=== PATIENT | female | born 1945 | race Caucasian/White ===

== ENCOUNTER 2017-01-02 13:46 | Emergency (ER) | payer MEDICARE, OTHER ==
[~2017-01-02] VITALS: Ht 162.6 cm; Wt 55.3 kg
[~2017-01-02 13:46] MED LIST: ACET1TAB45 PO; CEPH-507 PO; CODE-54 PO; CPR500T PO; DIPH1TAB25 PO; FLC100T1 PO; FRNCD3C PO; FURO-124 PO; GABA-488 PO; GBPN300C PO; LOVA40TA2 PO; NITR100C3 PO; ONDN4T PO; PANT40TA PO; PNT40TEC PO; SCR1T PO; TEMA30CA PO; TMZP15C PO
[2017-01-02] MEDS ORDERED: RX-MUPIROCIN (BACTROBAN) 2% OINT 22 GM TUBE TOP STA (14:59)
[2017-01-02] MEDS ORDERED: cefTRIAXone 1 GM (ROCEPHIN) VIAL IM ONE (15:00)
[2017-01-02] MEDS ORDERED: TETANUS,DIPTH,PERTUSS P/F (BOOSTRIX) 0.5 ML VIAL IM STA (15:00)
[2017-01-02] MEDS ORDERED: LIDOCAINE 1% INJ 20 ML (XYLOCAINE) VIAL INJ ONE (15:00)
[2017-01-02] MEDS ORDERED: CEPH-507 PO (15:04)
--- NOTE | 2017-01-02 15:04 | ED Integumentary General ---
General Chief Complaint: Bite-Animal/Human/Insect Stated Complaint: L LEG DOG BITE Nursing Triage Note: PT HERE WITH C/O DOG SCRATCH TO THE LEFT LEG 4 DAYS AGO. History of Present Illness Time seen by provider: 14:50 Initial Comments Patient reports that 4 days ago her dog jumped on her left leg causing a scratch to the lower anterior portion. She has been using a veterinary salve and putting it on the wound. Her son reports that initially was a large flap of skin, initially they were trying to keep the flap intact however it has been removed by them. Timing/Duration: getting worse Severity: mild Location: extremities (left lower extremity) Possible Cause: other (dog scratch) Associated Symptoms: denies symptoms Allergies and Home Medications Allergies Uncoded Allergies: PCN (Allergy, Unknown, 07/20/15) Home Medications Acetaminophen with Codeine 1 Each Tablet, 1-2 TAB PO Q6H PRN for PAIN, (Reported ) Clindamycin HCl 150 Mg Capsule, 150 MG PO Q6H, #20 Ref 0 Prescribed by: LORNE HODGES on 01/02/17 1519 Furosemide 40 Mg Tablet, 40 MG PO DAILY PRN for SWELLING, (Reported) Gabapentin 300 Mg Capsule, 600 MG PO 0700, 1200, 1800, (Reported) TAKES 2 (300MG) CAPSULES Gabapentin 300 Mg Capsule, 900 MG PO HS, (Reported) TAKES 3 (300MG) CAPSULES Lovastatin 40 Mg Tablet, 40 MG PO HS, (Reported) Pantoprazole Sod 40 Mg Tab, 40 MG PO DAILY, (Reported) Sulfamethoxazole/Trimethoprim 1 Each Tablet, 1 EACH PO BID, #20 Ref 0 Prescribed by: LORNE HODGES on 01/02/17 1519 Temazepam 30 Mg Capsule, 30 MG PO HS, (Reported) Constitutional: no symptoms reported, see HPI Skin: see HPI, lesions (left lower extremity) All Other Systems Reviewed Negative Unless Noted: Yes Past Efnzmeo-Gaokow-Fxgjqg Hx Patient Social History Former Smoker/When Quit: Jul 20, 2011 Recent Foreign Travel: No Contact w/Someone Who Travel: No Recent Infectious Disease Expo: No Immunizations Up To Date Tetanus Booster (TDap): Unknown PED Vaccines UTD: Yes Surgeries HX Surgeries: Yes (EGD/COLONOSCOPY, back surgery) Surgeries: Eye Surgery Cardiovascular Hx Cardiac Disorders: Yes Cardiac Disorders: High Cholesterol Neurological Hx Neurological Disorders: Yes Neurological Disorders: TIA Reproductive System Hx Reproductive Disorders: No Genitourinary Hx Genitourinary Disorders: No Gastrointestinal Hx Gastrointestinal Disorders: Yes (H. PYLORI) Gastrointestinal Disorders: Gastroesophageal Reflux, House's Esophagus, Hemorrhoids, Ulcer Musculoskeletal Hx Musculoskeletal Disorders: Yes Musculoskeletal Disorders: Degenerate Disk Disease, Fibromyalgia, Chronic Back Pain Endocrine Hx Endocrine Disorders: No HEENT HX ENT Disorders: No (RECENT EYE SURGERY. ) HEENT Disorders: Cataract Cancer Hx Cancer: No Psychosocial Hx Psychiatric Problems: Yes Behavioral Health Disorders: Anxiety, Depression Integumentary HX Skin/Integumentary Disorder: No Blood Transfusions Hx Blood Disorders: No Reviewed Nursing Assessment Reviewed/Agree w Nursing PMH: Yes Family Medical History Family Medial History: Abdominal aortic aneurysm 19 MOTHER Sabine's disease Arthritis 19 MOTHER Asthma 19 FATHER (GRANDFATHER) Cataracts 19 MOTHER Deafness or hearing loss 19 FATHER Glaucoma 19 MOTHER Headache disorder 19 MOTHER Physical Exam Vital Signs Vital Sign - Last 12Hours 01/02/17 14:26 Temp 97.3 Pulse 94 Resp 18 B/P (MAP) 122/73 Pulse Ox 99 O2 Delivery Room Air Capillary Refill : Less Than 3 Seconds General Appearance: WD/WN, no apparent distress HEENT: normal ENT inspection, TMs normal, pharynx normal Neck: non-tender, full range of motion, supple, normal inspection Cardiovascular: normal peripheral pulses, regular rate, rhythm Respiratory: chest non-tender, lungs clear, normal breath sounds Skin: normal color Skin Problem Location: lower extremities (left) Skin Problem Character: erythema, lesion, other (4X6 cm abrasion to left lower leg, anterior lateral. Marked erythema surrounding the abrasion, no warmth. Pedal pulses 2+ and symmetric. No active drainage from the wound site. No induration or fluctuance noted.) Lymphatic: No inguinal node tender (R), No inguinal node tender (L) Progress/Results/Core Measures Results/Orders My Orders Orders - LORNE HODGES Rx-Mupirocin 2% Oint (Rx-Bactroban) (01/02/17 14:59) Ceftriaxone Injection (Rocephin Injectio (01/02/17 15:00) Lidocaine 1% Injection (Xylocaine 1% Inj (01/02/17 15:00) Dipht,Pertuss(Acell),Tet Adult (Boostrix (01/02/17 15:00) Medications Given in ED Current Medications Medications Dose Ordered Sig/Cesilia Route Start Time Stop Time Status Last Admin Dose Admin Ceftriaxone Sodium 1,000 mg ONCE ONCE IM 01/02/17 15:00 01/02/17 15:01 DC 01/02/17 15:18 1,000 MG Lidocaine HCl 2.1 ml ONCE ONCE INJ 01/02/17 15:00 01/02/17 15:01 DC 01/02/17 15:18 2.1 ML Vital Signs/I&O Vital Sign - Last 12Hours 01/02/17 01/02/17 14:26 15:34 Temp 97.3 97.3 Pulse 94 94 Resp 18 18 B/P (MAP) 122/73 Pulse Ox 99 99 O2 Delivery Room Air Blood Pressure Mean: 89 Progress Note : Time: 14:50 Progress Note Wound irrigated thoroughly with peroxide, Bactroban ointment and sterile dressing applied. Wound care instructions reviewed with the patient and her son they agreed with this treatment plan, she will follow-up with her primary care provider in a few days. Verbalized understanding return to emergency department if wound worsens or she becomes febrile. Departure Impression Impression: Primary Impression: Cellulitis of left lower leg Additional Impression: Dog scratch Disposition: HOME, SELF-CARE Condition: Improved Departure-Patient Inst. Decision time for Depature: 15:10 Referrals: CHRIS GERARD MD (PCP/Family) Primary Care Physician Patient Instructions: Cellulitis (Skin Infection), Adult (DC) Add. Discharge Instructions: Clean wound with peroxide 3 times a day and apply antibiotic ointment. Follow-up with Dr. Gerard in 2 days. Take antibiotic as prescribed. Return to emergency department if fever greater than 101, increased redness or swelling at the wound site, difficulty breathing, or new problems. All discharge instructions reviewed with patient and/or family. Voiced understanding. Scripts Clindamycin HCl (Clindamycin HCl) 150 Mg Capsule 150 MG PO Q6H, #20 CAP 0 Refills Prov: LORNE HODGES 01/02/17 Sulfamethoxazole/Trimethoprim (Bactrim Ds Tablet) 1 Each Tablet 1 EACH PO BID, #20 TAB 0 Refills Prov: LORNE HODGES 01/02/17 Copy Copies To 1: CHRIS GERARD MD, AMY ARNP Jan 02, 2017 15:04
[2017-01-02] MEDS ORDERED: CLIN150C17 PO (15:19)
[2017-01-02] MEDS ORDERED: SULF1TAB35 PO (15:19)
[2017-01-02 15:34] VITALS: BP 122/73
== END 2017-01-02 15:33 | disposition home or self-care (01) ==
LOC: EDUNIT# 13:46 → ER 13:47
DX: S80.812A Abrasion, left lower leg, initial encounter (principal); L03.116 Cellulitis of left lower limb; E78.00 Pure hypercholesterolemia, unspecified; K21.9 Gastro-esophageal reflux disease without esophagitis; M47.9 Spondylosis, unspecified; F41.9 Anxiety disorder, unspecified; F32.9 Major depressive disorder, single episode, unspecified; Z86.73 Personal history of transient ischemic attack (TIA), and cerebral infarction without residual deficits; W54.0XXA Bitten by dog, initial encounter
CPT/HCPCS: 90715; 99284

== ENCOUNTER 2017-09-29 12:49 | Inpatient (IN) | payer MEDICARE, OTHER ==
[~2017-09-29] VITALS: Ht 162.6 cm; Wt 59.2 kg
[2017-09-29] VITALS (9 sets, daily range): BP systolic 80–142; BP diastolic 45–81
[~2017-09-29 12:49] MED LIST changes: +CLIN150C17 PO; +SULF1TAB35 PO
[2017-09-29] MEDS ORDERED: NS IV 1000 ML 1,000 ML IV ONE ×2 (13:05→13:07)
[2017-09-29] MEDS ORDERED: RT-ALBUTEROL/IPRATROPIUM 3 ML (DUONEB) VIAL ONE (13:06)
[2017-09-29] MEDS ORDERED: RT-ALBUTEROL/IPRATROPIUM 3 ML (DUONEB) VIAL INH ONE (13:15)
--- NOTE | 2017-09-29 13:20 | ED General ---
General Chief Complaint: Respiratory Problems Stated Complaint: FEVER,AMS Nursing Triage Note: c/o fever/confusion/soa/cough. Reports feeling ill x 3 days. Nursing Sepsis Screen: Possible Severe Sepsis Risk Source of Information: Patient, Family Exam Limitations: No Limitations History of Present Illness Date Seen by Provider: September 29, 2017 Time Seen by Provider: 12:52 Initial Comments This 72-year-old woman presents to the emergency room accompanied by her son and with acute illness for 3 days including fever, cough, weakness, dyspnea with wheezing, and diarrhea. She was confused last night and again this morning. 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 Last night she fell and struck her head against a closet door. There is no apparent injury at the time. She has headache but denies any neck pain or injury. She has diffuse myalgias. Patient was noted to be hypoxic with oxygen saturations in the low 80s upon presentation. Patient has a headache and reports history of migraines. Allergies and Home Medications Allergies Uncoded Allergies: PCN (Allergy, Unknown, 07/20/15) Home Medications Acetaminophen with Codeine 1 Each Tablet, 1-2 TAB PO Q6H PRN for PAIN, (Reported ) Clindamycin HCl 150 Mg Capsule, 150 MG PO Q6H Prescribed by: LORNE HODGES on 01/02/171518 Furosemide 40 Mg Tablet, 40 MG PO DAILY PRN for SWELLING, (Reported) Gabapentin 300 Mg Capsule, 600 MG PO 0700, 1200, 1800, (Reported) TAKES 2 (300MG) CAPSULES Gabapentin 300 Mg Capsule, 900 MG PO HS, (Reported) TAKES 3 (300MG) CAPSULES Lovastatin 40 Mg Tablet, 40 MG PO HS, (Reported) Pantoprazole Sod 40 Mg Tab, 40 MG PO DAILY, (Reported) Sulfamethoxazole/Trimethoprim 1 Each Tablet, 1 EACH PO BID Prescribed by: LORNE HODGES on 01/02/171518 Temazepam 30 Mg Capsule, 30 MG PO HS, (Reported) Patient Home Medication List Home Medication List Reviewed: Yes Review of Systems Constitutional: no symptoms reported EENTM: see HPI, other (oropharynx very dry) Respiratory: see HPI Cardiovascular: no symptoms reported Gastrointestinal: no symptoms reported Genitourinary: no symptoms reported : No Musculoskeletal: see HPI Skin: no symptoms reported Psychiatric/Neurological: See HPI Hematologic/Lymphatic: No Symptoms Reported Past Mzbgegw-Mzdbbb-Qthcbb Hx Patient Social History Recent Foreign Travel: No Contact w/Someone Who Travel: No Recent Infectious Disease Expo: No Immunizations Up To Date Tetanus Booster (TDap): Unknown PED Vaccines UTD: Yes Past Medical History Surgeries: Yes (EGD/COLONOSCOPY, back surgery) Eye Surgery Respiratory: Yes COPD Cardiac: Yes High Cholesterol Neurological: Yes (spinal stenosis) TIA : No Reproductive Disorders: No Gastrointestinal: Yes (H. PYLORI) Gastroesophageal Reflux, House's Esophagus, Hemorrhoids, Ulcer Musculoskeletal: Yes (spinal stenosis) Degenerate Disk Disease, Fibromyalgia, Chronic Back Pain Endocrine: No Cataract Cancer: No Psychosocial: Yes Anxiety, Depression Integumentary: No Blood Disorders: No Family Medical History Abdominal aortic aneurysm 19 MOTHER Alonso's disease Arthritis 19 MOTHER Asthma 19 FATHER (GRANDFATHER) Cataracts 19 MOTHER Deafness or hearing loss 19 FATHER Glaucoma 19 MOTHER Headache disorder 19 MOTHER Physical Exam-Suspected Sepsis Physical Exam Vital Signs Vital Signs - First Documented 09/29/17 09/29/17 13:08 13:11 Temp 98.3 Pulse 120 Resp 24 B/P (MAP) 113/72 (86) Pulse Ox 82 O2 Delivery Room Air O2 Flow Rate 4.00 Capillary Refill : Less Than 3 Seconds Blood Pressure Mean: 86 General Appearance: WD/WN, Moderate Distress HEENT: PERRL/EOMI, Normal ENT Inspection, Other (oropharynx extremely dry) Neck: Normal Inspection, Supple, Other (no nuchal rigidity) Respiratory: Accessory Muscle Use, Decreased Breath Sounds, Respiratory Distress, Wheezing Cardiovascular: No Edema, No Murmur, Tachycardia Gastrointestinal: Non Tender, Soft Extremity: Normal Capillary Refill, Normal Inspection, Non Tender, No Pedal Edema Neurologic/Psychiatric: Alert, Oriented x3, No Motor/Sensory Deficits, Normal Mood/Affect, shingle carrier II-XII Norm as Tested Skin: normal color, warm/dry Focused Exam Lactate Level 09/29/17 13:30: Lactic Acid Level 0.94 Lactic Acid Level Laboratory Tests Test 09/29/17 13:30 Lactic Acid Level 0.94 MMOL/L (0.50-2.00) Progress/Results/Core Measures Suspected Sepsis Recent Fever Within 48 Hours: No Infection Criteria Present: Suspected New Infection New/Unexplained Altered Menta: Yes Sepsis Screen: Possible Severe Sepsis Risk SIRS Temperature:98.3 Pulse: 120 Respiratory Rate: 24 Laboratory Tests 09/29/17 13:30: White Blood Count 16.9H Blood Pressure 113 /72 Mean: 86 09/29/17 13:30: Lactic Acid Level 0.94 Laboratory Tests 09/29/17 13:30: Creatinine 0.89, INR Comment 1.1, Platelet Count 237, Total Bilirubin 1.4H Results/Orders Lab Results Laboratory Tests Test 09/29/17 13:30 Range/Units White Blood Count 16.9 H 4.3-11.0 10^3/uL Red Blood Count 4.28 L 4.35-5.85 10^6/uL Hemoglobin 14.0 11.5-16.0 G/DL Hematocrit 43 35-52 % Mean Corpuscular Volume 100 H 80-99 FL Mean Corpuscular Hemoglobin 33 25-34 PG Mean Corpuscular Hemoglobin Concent 33 32-36 G/DL Red Cell Distribution Width 13.3 10.0-14.5 % Platelet Count 237 130-400 10^3/uL Mean Platelet Volume 10.0 7.4-10.4 FL Neutrophils (%) (Auto) 87 H 42-75 % Lymphocytes (%) (Auto) 9 L 12-44 % Monocytes (%) (Auto) 4 0-12 % Eosinophils (%) (Auto) 0 0-10 % Basophils (%) (Auto) 0 0-10 % Neutrophils # (Auto) 14.7 H 1.8-7.8 X 10^3 Lymphocytes # (Auto) 1.5 1.0-4.0 X 10^3 Monocytes # (Auto) 0.7 0.0-1.0 X 10^3 Eosinophils # (Auto) 0.0 0.0-0.3 10^3/uL Basophils # (Auto) 0.0 0.0-0.1 10^3/uL Neutrophils % (Manual) 83 % Lymphocytes % (Manual) 13 % Monocytes % (Manual) 1 % Eosinophils % (Manual) 0 % Basophils % (Manual) 0 % Band Neutrophils 3 % Blood Morphology Comment NORMAL Prothrombin Time 13.8 12.2-14.7 SEC INR Comment 1.1 0.8-1.4 Activated Partial Thromboplast Time 29 24-35 SEC Sodium Level 133 L 135-145 MMOL/L Potassium Level 4.5 3.6-5.0 MMOL/L Chloride Level 98 98-107 MMOL/L Carbon Dioxide Level 24 21-32 MMOL/L Anion Gap 11 5-14 MMOL/L Blood Urea Nitrogen 14 7-18 MG/DL Creatinine 0.89 0.60-1.30 MG/DL Estimat Glomerular Filtration Rate > 60 BUN/Creatinine Ratio 16 Glucose Level 126 H 70-105 MG/DL Lactic Acid Level 0.94 0.50-2.00 MMOL/L Calcium Level 9.9 8.5-10.1 MG/DL Total Bilirubin 1.4 H 0.1-1.0 MG/DL Aspartate Amino Transf (AST/SGOT) 24 5-34 U/L Alanine Aminotransferase (ALT/SGPT) 15 0-55 U/L Alkaline Phosphatase 76 40-136 U/L Total Creatine Kinase 134 29-168 U/L Total Protein 8.0 6.4-8.2 GM/DL Albumin 3.7 3.2-4.5 GM/DL Serum Alcohol < 10 <10 MG/DL Micro Results Microbiology 09/29/17 Influenza Types A,B Antigen (BETH) - Final, Complete My Orders Orders - ANGELES HOOD MD Cbc With Automated Diff (09/29/17 12:53) Comprehensive Metabolic Panel (09/29/17 12:53) Ua Culture If Indicated (09/29/17 12:53) Influenza A And B Antigens (09/29/17 12:53) Saline Lock/Iv-Start (09/29/17 12:53) Lactic Acid Analyzer (09/29/17 13:05) Blood Culture (09/29/17 13:05) Sputum Culture (09/29/17 13:05) Protime With Inr (09/29/17 13:05) Partial Thromboplastin Time (09/29/17 13:05) Chest 1 View, Ap/Pa Only (09/29/17 13:05) O2 (09/29/17 13:05) Saline Lock/Iv-Start (09/29/17 13:05) Vital Signs Adult Sepsis Patie Q1H (09/29/17 13:05) Remove Rings In Anticipation O (09/29/17 13:05) Saline Lock/Iv-Start (09/29/17 13:05) Ns Iv 1000 Ml (Sodium Chloride 0.9%) (09/29/17 13:05) Saline Lock/Iv-Start (09/29/17 13:07) Ns Iv 1000 Ml (Sodium Chloride 0.9%) (09/29/17 13:07) Albuterol/Ipra Inhalation Soln (Duoneb I (09/29/17 13:15) Svn Small Volume Nebulizer (09/29/17 13:07) Albuterol/Ipra Inhalation Soln (Duoneb I (09/29/17 13:06) Ct Head/Cervical Spine Wo (09/29/17 13:20) Creatine Kinase (09/29/17 13:20) Albuterol Pre-Mix Nebs (Rt) (Proventil (09/29/17 13:26) Ipratropium 0.02% Neb Solution (Atrovent (09/29/17 13:30) Svn Small Volume Nebulizer (09/29/17 13:26) Svn Small Volume Nebulizer (09/29/17 13:26) Methylprednisolone Sod Succ (Solu-Medrol (09/29/17 13:30) Manual Differential (09/29/17 13:30) Alcohol (09/29/17 14:38) Levofloxacin 750 Mg/150 Ml Iv (Levaquin (09/29/17 16:00) Ketorolac Injection (Toradol Injection) (09/29/17 16:15) General/Regular (09/30/17 Breakfast) Medications Given in ED Current Medications Medications Dose Ordered Sig/Cesilia Route Start Time Stop Time Status Last Admin Dose Admin Albuterol/ Ipratropium 3 ml ONCE ONCE INH 09/29/17 13:15 09/29/17 13:16 DC 09/29/17 13:11 3 ML Ipratropium Vanzant 0.5 mg ONCE ONCE IH 09/29/17 13:30 09/29/17 13:31 DC 09/29/17 15:11 0.5 MG Ketorolac Tromethamine 15 mg ONCE ONCE IVP 09/29/17 16:15 09/29/17 16:16 DC 09/29/17 16:16 15 MG Levofloxacin/ Dextrose 150 ml @ 100 mls/hr ONCE ONCE IV 09/29/17 16:00 09/29/17 17:29 09/29/17 16:16 100 MLS/HR Methylprednisolone Sodium Succinate 62.5 mg ONCE ONCE IVP 09/29/17 13:30 09/29/17 13:31 DC 09/29/17 14:55 62.5 MG Sodium Chloride 1,000 ml @ 0 mls/hr Q0M ONCE IV 09/29/17 13:05 09/29/17 13:07 DC 09/29/17 13:23 1,000 MLS/HR Sodium Chloride 1,000 ml @ 0 mls/hr Q0M ONCE IV 09/29/17 13:07 09/29/17 13:09 DC 09/29/17 14:54 1,000 MLS/HR Vital Signs/I&O 09/29/17 09/29/17 09/29/17 09/29/17 13:08 13:11 15:11 16:16 Temp 98.3 98.3 Pulse 120 Resp 24 B/P (MAP) 113/72 (86) Pulse Ox 82 94 95 O2 Delivery Room Air Nasal Cannula Nasal Cannula O2 Flow Rate 4.00 4.00 Capillary Refill : Less Than 3 Seconds Blood Pressure Mean: 86 Progress Note : Progress Note Patient was promptly seen and assessed. She was suspected of having sepsis and septic protocol workup was pursued. Patient received a DuoNeb treatment but was still wheezy and hypoxic. An hour-long nebulizer treatment was administered along with Solu-Medrol 62.5 mg IV. Chest x-ray was suspicious for pneumonia. Levaquin 750 mg IV was initiated. Patient has a penicillin allergy which prompted selection of Levaquin. Patient received 2 L of IV fluid in the ER but was unable to produce a urine specimen. Overall patient improved significantly. CT of the head and C-spine was obtained due to report of fall. She had no neck pain or nuchal rigidity. CT scans were negative for acute injury. Case was discussed with Dr. Jama who agrees patient does not need a trauma consult. She was cleared from a trauma perspective in the ER. Admission is for sepsis, not for trauma. Family reports patient drinks 4 beers per day. Alcohol withdrawal protocol was ordered. Influenza screen was negative. Toradol was given for headache. Diagnostic Imaging Diagonstic Imaging: Xray Plain Films/CT/US/NM/MRI: chest Comments Chest x-ray viewed by me and report reviewed. See report below: NAME: JB VANG MED REC#: [id number] PT STATUS: REG ER : 1945 PHYSICIAN: ANGELES HOOD MD ADMIT DATE: 09/29/17/ER Signed Date of Exam: 09/29/17 CHEST 1 VIEW, AP/PA ONLY INDICATION: Chest pain and dyspnea. Portable upright AP view of the chest is obtained with comparison made to study of 07/20/2015. FINDINGS: There is extensive air trapping bilaterally. Prominent interstitial markings are seen throughout the lungs. No pneumothorax or consolidation is identified. IMPRESSION: Extensive COPD without radiographic evidence of acute abnormality. Dictated by: Dictated on workstation # [id number] Dict: 09/29/17 1358 Trans: 09/29/17 1524 Interpreted by: ALESSIA TREVINO MD Electronically signed by: ALESSIA TREVINO MD 09/29/17 1524 Diagonstic Imaging: CT Plain Films/CT/US/NM/MRI: c-spine, head Comments NAME: JB VANG [facility] REC#: [id number] PT STATUS: REG ER : 1945 PHYSICIAN: ANGELES HOOD MD ADMIT DATE: 09/29/17/ER Signed Date of Exam: 09/29/17 CT HEAD/CERVICAL SPINE WO PROCEDURE: CT head and CT cervical spine without contrast. TECHNIQUE: Multiple contiguous axial images were obtained through the brain and cervical spine without the use of intravenous contrast. Sagittal and coronal reformations through the cervical spine were then performed. INDICATION: Fever and confusion. CT BRAIN: Comparison is made with prior CT brain from 11/26/2012. The ventricles and sulci are appropriate for the patient's age. No sulcal effacement is identified. There is no midline shift. No acute intra-axial or extra-axial hemorrhage is detected. Cisterns are patent. The visualized paranasal sinuses are clear. IMPRESSION: No acute intracranial process is detected. CT CERVICAL SPINE: There is moderate motion artifact present, compromising the reconstruction images. No fracture is seen. There is multilevel degenerative disc disease with disc space narrowing and marginal spurring. Prevertebral tissues are normal. Odontoid is intact IMPRESSION: Cervical spondylosis. No acute fractures detected. Dictated by: Dictated on workstation # [id number] Dict: 09/29/17 1434 Trans: 09/29/17 1532 Interpreted by: KELLY KANG MD Electronically signed by: KELLY KANG MD 09/29/17 1532 Departure Communication (Admissions) Time/Spoke to Admitting Phy: 15:50 Dr. Mir Impression Primary Impression: Sepsis Qualified Codes: A41.9 - Sepsis, unspecified organism Additional Impressions: COPD exacerbation Hypoxia Pneumonia Qualified Codes: J18.9 - Pneumonia, unspecified organism Altered mental status Qualified Codes: R41.82 - Altered mental status, unspecified Hypovolemia Fall on same level Qualified Codes: W18.30XA - Fall on same level, unspecified, initial encounter Disposition: ADMITTED INPATIENT Condition: Improved Admissions Decision to Admit Reason: Admit from ER (General) Decision to Admit/Date: September 29, 2017 Time/Decision to Admit Time: 13:00 Departure-Patient Inst. Referrals: CHRIS GERARD MD (PCP/Family) Primary Care Physician ANGELES HOOD MD September 29, 2017 13:20
[2017-09-29] MEDS ORDERED: RT-ALBUTEROL SULF 2.5 MG/3 ML PRE-MIX VIAL INH STA (13:26)
[2017-09-29] MEDS ORDERED: methylPREDNISolone 125 MG (Solu-MEDROL) VIAL IVP ONE (13:30)
[2017-09-29] MEDS ORDERED: RT-IPRATROPIUM (ATROVENT) 0.5MG/2.5ML AMP IH ONE (13:30)
[2017-09-29 13:46] LABS: BASOPHILS % (AUTO) 0 % (0-10); EOSINOPHILS % (AUTO) 0 % (0-10); HEMATOCRIT 43 % (35-52); LYMPHOCYTES # (AUTO) 1.5 X 10^3 (1.0-4.0); LYMPHOCYTES % (AUTO) 9 % (12-44); MEAN CORPUSCULAR HEMOGLOBIN 33 PG (25-34); MEAN CORPUSCULAR HGB CONC 33 G/DL (32-36); MEAN CORPUSCULAR VOLUME 100 FL (80-99); MONOCYTES # (AUTO) 0.7 X 10^3 (0.0-1.0); MONOCYTES % (AUTO) 4 % (0-12); NEUTROPHILS # (AUTO) 14.7 X 10^3 (1.8-7.8); NEUTROPHILS % (AUTO) 87 % (42-75); PLATELET COUNT 237 10^3/uL (130-400); RED BLOOD COUNT 4.28 10^6/uL (4.35-5.85); RED CELL DISTRIBUTION WIDTH 13.3 % (10.0-14.5); WHITE BLOOD COUNT 16.9 10^3/uL (4.3-11.0)
[2017-09-29 13:57] LABS: INR 1.1 (0.8-1.4); PROTHROMBIN TIME PATIENT 13.8 SEC (12.2-14.7)
--- NOTE | 2017-09-29 14:03 | Diagnostic Imaging Report ---
INDICATION: Chest pain and dyspnea. Portable upright AP view of the chest is obtained with comparison made to study of 07/20/2015. FINDINGS: There is extensive air trapping bilaterally. Prominent interstitial markings are seen throughout the lungs. No pneumothorax or consolidation is identified. IMPRESSION: Extensive COPD without radiographic evidence of acute abnormality. Dictated by: Dictated on workstation # [id number]
[2017-09-29 14:05] LABS: ALANINE AMINOTRANSFERASE 15 U/L (0-55); ALBUMIN 3.7 GM/DL (3.2-4.5); ALKALINE PHOSPHATASE 76 U/L (40-136); BILIRUBIN,TOTAL 1.4 MG/DL (0.1-1.0); BUN/CREATININE RATIO 16; CALCIUM 9.9 MG/DL (8.5-10.1); CARBON DIOXIDE 24 MMOL/L (21-32); CHLORIDE 98 MMOL/L (98-107); CREATINE KINASE 134 U/L (29-168); CREATININE SERUM 0.89 MG/DL (0.60-1.30); GFR ESTIMATED > 60; GLUCOSE 126 MG/DL (70-105); POTASSIUM 4.5 MMOL/L (3.6-5.0); SODIUM 133 MMOL/L (135-145)
[2017-09-29 14:17] LABS: BAND NEUTROPHILS 3 %; BASOPHILS % (MANUAL) 0 %; EOSINOPHILS % (MANUAL) 0 %; LYMPHOCYTES % (MANUAL) 13 %; MONOCYTES % (MANUAL) 1 %; NEUTROPHILS % (MANUAL) 83 %; RBC MORPH NORMAL
--- NOTE | 2017-09-29 14:48 | Diagnostic Imaging Report ---
PROCEDURE: CT head and CT cervical spine without contrast. TECHNIQUE: Multiple contiguous axial images were obtained through the brain and cervical spine without the use of intravenous contrast. Sagittal and coronal reformations through the cervical spine were then performed. INDICATION: Fever and confusion. CT BRAIN: Comparison is made with prior CT brain from 11/26/2012. The ventricles and sulci are appropriate for the patient's age. No sulcal effacement is identified. There is no midline shift. No acute intra-axial or extra-axial hemorrhage is detected. Cisterns are patent. The visualized paranasal sinuses are clear. IMPRESSION: No acute intracranial process is detected. CT CERVICAL SPINE: There is moderate motion artifact present, compromising the reconstruction images. No fracture is seen. There is multilevel degenerative disc disease with disc space narrowing and marginal spurring. Prevertebral tissues are normal. Odontoid is intact IMPRESSION: Cervical spondylosis. No acute fractures detected. Dictated by: Dictated on workstation # [id number]
[2017-09-29] MEDS ORDERED: LEVOFLOXACIN 750 MG/150 ML IV 150 ML IV ONE (16:00)
[2017-09-29] MEDS ORDERED: KETOROLAC 30 MG/ML VIAL IVP ONE (16:15)
[2017-09-29] MEDS ORDERED: CATHETER FLUSH 10 ML SYR IV PRN (18:00)
[2017-09-29] MEDS ORDERED: 1/2 NS IV SOLUTION 1,000 ML IV PRN (18:06)
[2017-09-29] MEDS ORDERED: D5 1/2 NS 1000 ML IV SOLUTION 1,000 ML IV PRN (18:15)
[2017-09-29] MEDS ORDERED: LORazepam INJ 2 MG/ML (ATIVAN) VIAL IV PRN (18:15)
[2017-09-29] MEDS ORDERED: LORazepam 1 MG (ATIVAN) TAB PO PRN (18:15)
[2017-09-29] MEDS ORDERED: ONDANSETRON 4 MG (ZOFRAN) ORAL DISSOLVE TAB SL PRN (18:15)
[2017-09-29] MEDS ORDERED: SENNA W/DOCUSATE (SENOKOT S) TABLET PO PRN (18:15)
[2017-09-29] MEDS ORDERED: ONDANSETRON 4 MG/2 ML (SDV) Z0FRAN IV PRN (18:15)
[2017-09-29] MEDS ORDERED: LORazepam INJ 2 MG/ML (ATIVAN) VIAL IM/IV PRN (18:15)
[2017-09-29] MEDS ORDERED: ANTACID SUSP 30 ML UDC (MYLANTA) PO PRN (18:15)
[2017-09-29] MEDS: MAGNESIUM OXIDE (MAG-OX)400 MG TAB PO SCH (18:27)
[2017-09-29] MEDS: MULTIVIT W/MINERALS TAB (THERAGRAN M) PO SCH (18:27)
[2017-09-29] MEDS: FOLIC ACID 1 MG TAB PO SCH (18:27)
[2017-09-29] MEDS: THIAMINE 100 MG (VITAMIN B-1) TAB PO SCH (18:27)
[2017-09-29] MEDS: NS IV 1000 ML 1,000 ML IV SCH (18:27)
[2017-09-29] MEDS ORDERED: NS IV 1000 ML 1,000 ML IV SCH ×2 (19:00)
[2017-09-29] MEDS: MELATONIN 3 MG TABLET PO SCH (20:41)
[2017-09-29] MEDS ORDERED: RT-ALBUTEROL/IPRATROPIUM 3 ML (DUONEB) VIAL INH PRN (21:00)
[2017-09-29] MEDS: RT-ALBUTEROL/IPRATROPIUM 3 ML (DUONEB) VIAL INH SCH (21:54)
[2017-09-30 01:56] VITALS: BP 99/54
[2017-09-30] MEDS: RT-ALBUTEROL/IPRATROPIUM 3 ML (DUONEB) VIAL INH SCH ×6 (02:16→21:46)
[2017-09-30] MEDS ORDERED: ACETAMINOPHEN 500 MG TAB (TYLENOL) PO PRN (02:30)
[2017-09-30 04:00] VITALS: BP 104/52
[2017-09-30] MEDS: NS IV 1000 ML 1,000 ML IV SCH ×2 (06:05→15:50)
[2017-09-30] MEDS: MAGNESIUM OXIDE (MAG-OX)400 MG TAB PO SCH ×2 (06:06→17:20)
[2017-09-30] MEDS: MULTIVIT W/MINERALS TAB (THERAGRAN M) PO SCH (06:06)
[2017-09-30] MEDS: THIAMINE 100 MG (VITAMIN B-1) TAB PO SCH (06:06)
[2017-09-30] MEDS: FOLIC ACID 1 MG TAB PO SCH (06:07)
[2017-09-30 06:20] LABS: BASOPHILS % (AUTO) 0 % (0-10); EOSINOPHILS % (AUTO) 0 % (0-10); HEMATOCRIT 34 % (35-52); LYMPHOCYTES # (AUTO) 0.3 X 10^3 (1.0-4.0); LYMPHOCYTES % (AUTO) 5 % (12-44); MEAN CORPUSCULAR HEMOGLOBIN 33 PG (25-34); MEAN CORPUSCULAR HGB CONC 32 G/DL (32-36); MEAN CORPUSCULAR VOLUME 102 FL (80-99); MEAN PLATELET VOLUME 9.7 FL (7.4-10.4); MONOCYTES # (AUTO) 0.1 X 10^3 (0.0-1.0); MONOCYTES % (AUTO) 3 % (0-12); NEUTROPHILS # (AUTO) 4.8 X 10^3 (1.8-7.8); NEUTROPHILS % (AUTO) 92 % (42-75); PLATELET COUNT 170 10^3/uL (130-400); RED BLOOD COUNT 3.37 10^6/uL (4.35-5.85); RED CELL DISTRIBUTION WIDTH 13.5 % (10.0-14.5); WHITE BLOOD COUNT 5.3 10^3/uL (4.3-11.0)
[2017-09-30 06:21] LABS: BILIRUBIN,URINE NEGATIVE (NEGATIVE); COLOR,URINE YELLOW; GLUCOSE, URINE (UA) 1+ (NEGATIVE); KETONES,URINE 1+ (NEGATIVE); LEUKOCYTE ESTERASE ,URINE NEGATIVE (NEGATIVE); NITRITE,URINE NEGATIVE (NEGATIVE); PH,URINE 5 (5-9); PROTEIN,URINE 2+ (NEGATIVE); UROBILINOGEN,URINE NORMAL (NORMAL)
[2017-09-30 06:32] LABS: BACTERIA,URINE FEW /HPF; CLARITY,URINE CLEAR; WBC,URINE RARE /HPF
[2017-09-30 06:41] LABS: ALANINE AMINOTRANSFERASE 13 U/L (0-55); ALKALINE PHOSPHATASE 63 U/L (40-136); BILIRUBIN,TOTAL 0.6 MG/DL (0.1-1.0); BUN/CREATININE RATIO 17; CALCIUM 8.1 MG/DL (8.5-10.1); CARBON DIOXIDE 19 MMOL/L (21-32); CHLORIDE 108 MMOL/L (98-107); CREATININE SERUM 0.76 MG/DL (0.60-1.30); GFR ESTIMATED > 60; GLUCOSE 147 MG/DL (70-105); POTASSIUM 3.7 MMOL/L (3.6-5.0); SODIUM 137 MMOL/L (135-145)
[2017-09-30 06:42] LABS: ALBUMIN 2.8 GM/DL (3.2-4.5); TOTAL PROTEIN 5.6 GM/DL (6.4-8.2)
--- NOTE | 2017-09-30 07:44 | Diagnostic Imaging Report ---
INDICATION: COPD/pneumonia. PA and lateral views of the chest are obtained. Comparison is made to study of 09/29/2017. FINDINGS: There has been mild worsening of coarse interstitial markings throughout the lungs with a basilar predominance. No pneumothorax is identified. There is blunting of the costophrenic sulci bilaterally as well. IMPRESSION: Mild worsening of interstitial markings in both lungs which may be due to chronic fibrosis and superimposed edema or pneumonitis. There is small amount of bilateral pleural fluid and/or thickening. Dictated by: Dictated on workstation # [id number]
[2017-09-30 08:00] VITALS: BP 106/53
--- NOTE | 2017-09-30 10:09 | History & Physical-Hospitalist ---
History of Present Illness HPI/Chief Complaint CC: Dyspnea HPI: This is a 72-year-old white female clinic patient of Dr. Marie with a past medical history of neuropathy who presented to the ER with 3 day history of fever and malaise with diarrhea. She was found to have sepsis protocol was followed IV fluid resuscitation initiated and Levaquin was given for pneumonia diagnosed on chest x-ray. She reports that she doesn't drink alcohol to me that it appears that they reported that she drinks 4 beers a day so unclear on the reliability of her details. Currently she is having tremors and shakes because she is without her pain medication and her review her home meds and it didn't show any opioids except for Tylenol No. 3 but detox protocol was started. Chest x-ray was reviewed. Lactic acid has returned to normal Source: patient, family Exam Limitations: no limitations Date Seen 09/30/17 Time Seen by Provider: 09:30 Attending Physician Emperatriz Mir MD PCP Pavan Marie MD Referring Physician Date of Admission September 29, 2017 at 16:45 Home Medications & Allergies Home Medications Reviewed patient Home Medication Reconciliation performed by pharmacy medication reconciliations color laboratory technician and/or nursing. Patients Allergies have been reviewed. 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) Alcohol Use: Denies Use Recreational Drug Use: No Smoking Status: Former Smoker Former Smoker, Quit: September 29, 2010 Type Used: Cigarettes Physical Abuse Screen: No Sexual Abuse: No Recent Foreign Travel: No Contact w/other who traveled: No Recent Hopitalizations: No Recent Infectious Disease Expo: No Immunizations Up To Date Tetanus Booster (TDap): Unknown Pediatric: Yes Seasonal Allergies Seasonal Allergies: Yes Past Medical History Surgeries: Eye Surgery Respiratory: COPD Currently Using CPAP: No Currently Using BIPAP: No Cardiac: High Cholesterol Neurological: TIA : No Reproductive: No Gastrointestinal: Gastroesophageal Reflux, House's Esophagus, Ulcer Musculoskeletal: Degenerate Disk Disease, Fibromyalgia, Chronic Back Pain HEENT: Cataract Loss of Vision: Denies Hearing Impairment: Denies Psychosocial: Sleep Difficulties, Depression History of Blood Disorders: No Family History Abdominal aortic aneurysm 19 MOTHER [place]'s disease Arthritis 19 MOTHER Asthma 19 FATHER (GRANDFATHER) Cataracts 19 MOTHER Deafness or hearing loss 19 FATHER Glaucoma 19 MOTHER Headache disorder 19 MOTHER Hypertension Review of Systems Constitutional: see HPI, weakness EENTM: no symptoms reported Respiratory: cough, dyspnea on exertion, short of breath, wheezing Cardiovascular: no symptoms reported Gastrointestinal: diarrhea (chronic) Musculoskeletal: back pain Skin: no symptoms reported Psychiatric/Neurological: Anxiety, Depressed All Other Systems Reviewed Negative Unless Noted: Yes Physical Exam Physical Exam Vital Signs Vital Signs - First Documented 09/29/17 09/29/17 13:08 13:11 Temp 98.3 Pulse 120 Resp 24 B/P (MAP) 113/72 (86) Pulse Ox 82 O2 Delivery Room Air O2 Flow Rate 4.00 Capillary Refill : Less Than 3 Seconds General Appearance: WD/WN, Anxious, Chronically ill, Mild Distress, Other ( debilitated) Eyes: Bilateral Eye Normal Inspection, Bilateral Eye PERRL HEENT: PERRL/EOMI, Normal ENT Inspection, Pharynx Normal Neck: Full Range of Motion, Normal Inspection, Non Tender, Supple, Carotid Bruit Respiratory: Chest Non Tender, Lungs Clear, No Accessory Muscle Use, No Respiratory Distress, Decreased Breath Sounds Cardiovascular: Regular Rate, Rhythm, No Edema, No Gallop, No JVD, No Murmur, Normal Peripheral Pulses Gastrointestinal: Normal Bowel Sounds, No Organomegaly, No Pulsatile Mass, Non Tender, Soft Back: Normal Inspection, No CVA Tenderness, No Vertebral Tenderness Extremity: Normal Capillary Refill, Normal Inspection, Normal Range of Motion, Non Tender, No Calf Tenderness, No Pedal Edema Neurologic/Psychiatric: Alert, Oriented x3, No Motor/Sensory Deficits, Depressed Affect, Other (anxious) Skin: Normal Color, Warm/Dry Lymphatic: No Adenopathy Results Results/Procedures Labs Laboratory Tests 09/29/17 13:30 09/30/17 06:00 Patient resulted labs reviewed. Assessment/Plan Admission Diagnosis Assessment: Sepsis Pneumonia Possible alcohol withdrawal Severe neuropathy COPD Plan: IV steroids Detox protocol Check labs in a.m. Monitor closely Restarted all home meds Admission Status: Inpatient Order (span 2 midnights) Reason for Inpatient Admission: AMS with Hypoxia and AECOPD and pneumonia bilateral Diagnosis/Problems Diagnosis/Problems (1) Sepsis Status: Acute Qualifiers: Sepsis type: sepsis due to unspecified organism Qualified Codes: A41.9 - Sepsis, unspecified organism (2) Neuropathy Status: Chronic (3) Patient is Hoahaoism Status: Chronic (4) Chronic diarrhea Status: Chronic (5) Hypoxia Status: Acute (6) COPD exacerbation Status: Acute (7) Fall on same level Status: Acute Qualifiers: Encounter type: initial encounter Qualified Codes: W18.30XA - Fall on same level, unspecified, initial encounter (8) Pneumonia Status: Acute Qualifiers: Pneumonia type: due to unspecified organism Laterality: bilateral Lung location: unspecified part of lung Qualified Codes: J18.9 - Pneumonia, unspecified organism (9) Altered mental status Status: Acute Qualifiers: Altered mental status type: unspecified Qualified Codes: R41.82 - Altered mental status, unspecified (10) Chronic pain Status: Chronic Qualifiers: Chronic pain type: chronic pain syndrome Qualified Codes: G89.4 - Chronic pain syndrome (11) Alcoholism Status: Chronic (12) Tremor due to substance abuse Status: Acute Clinical Quality Measures DVT/VTE Risk/Contraindication: Risk Factor Score Per Nursin RFS Level Per Nursing on Admit: 4+=Very High TIMBO RAY DO September 30, 2017 10:09
[2017-09-30] MEDS ORDERED: ALPRAZolam 0.25 MG (XANAX) TAB PO PRN (10:15)
[2017-09-30] MEDS ORDERED: GABA-488 PO (10:50)
[2017-09-30] MEDS ORDERED: SPIR50TA2 PO (10:51)
[2017-09-30] MEDS ORDERED: DIPH1TAB25 PO (10:52)
[2017-09-30] MEDS ORDERED: L.AC1CAP6 PO (10:56)
[2017-09-30] MEDS ORDERED: BIOT5000 PO (10:56)
[2017-09-30] MEDS ORDERED: ACETAMINOPHEN WITH CODEINE PO PRN (11:00)
[2017-09-30] MEDS ORDERED: [UNRECOGNIZED DRUG - OTHER] PO PRN (11:00)
[2017-09-30 12:00] VITALS: BP 107/62
[2017-09-30] MEDS: GABAPENTIN 300 MG (NEURONTIN) CAP PO SCH ×3 (12:09→19:25)
[2017-09-30] MEDS: DIPHENOXYLATE/ATROPINE 2.5MG/0.025MG (LOMOTIL) TAB PO SCH ×3 (12:12→20:48)
[2017-09-30] MEDS: HYDROcodone/APAP 5 MG/325 MG (LORTAB) TAB PO PRN (15:49)
[2017-09-30 16:12] VITALS: BP 91/54
[2017-09-30] MEDS: methylPREDNISolone 40 MG/ML (Solu-MEDROL) VIAL IV SCH (19:25)
[2017-09-30 19:37] VITALS: BP 123/61
[2017-09-30] MEDS: MELATONIN 3 MG TABLET PO SCH (20:46)
[2017-09-30] MEDS: TEMAZEPAM 15 MG (RESTORIL) CAP PO SCH (20:46)
[2017-09-30] MEDS ORDERED: NON-FORMULARY MEDICATION 1 EA EA (Temazepam 30 MG) PO SCH (21:00)
[2017-10-01] VITALS (7 sets, daily range): BP systolic 99–128; BP diastolic 50–69
[2017-10-01] MEDS: GABAPENTIN 300 MG (NEURONTIN) CAP PO SCH ×7 (00:10→23:45)
[2017-10-01] MEDS: methylPREDNISolone 40 MG/ML (Solu-MEDROL) VIAL IV SCH ×5 (00:10→23:45)
[2017-10-01] MEDS: NS IV 1000 ML 1,000 ML IV SCH (00:11)
[2017-10-01] MEDS: HYDROcodone/APAP 5 MG/325 MG (LORTAB) TAB PO PRN ×3 (02:26→20:01)
[2017-10-01] MEDS: RT-ALBUTEROL/IPRATROPIUM 3 ML (DUONEB) VIAL INH SCH ×6 (02:54→21:06)
[2017-10-01] MEDS: MAGNESIUM OXIDE (MAG-OX)400 MG TAB PO SCH ×2 (05:54→16:27)
[2017-10-01] MEDS: FOLIC ACID 1 MG TAB PO SCH (05:54)
[2017-10-01] MEDS: THIAMINE 100 MG (VITAMIN B-1) TAB PO SCH (05:54)
[2017-10-01] MEDS: PANTOPRAZOLE 40 MG (PROTONIX) TAB PO SCH (05:54)
[2017-10-01] MEDS: MULTIVIT W/MINERALS TAB (THERAGRAN M) PO SCH (05:54)
[2017-10-01 06:45] LABS: BASOPHILS % (AUTO) 0 % (0-10); EOSINOPHILS % (AUTO) 0 % (0-10); HEMATOCRIT 35 % (35-52); HEMOGLOBIN 11.2 G/DL (11.5-16.0); LYMPHOCYTES # (AUTO) 0.3 X 10^3 (1.0-4.0); LYMPHOCYTES % (AUTO) 5 % (12-44); MEAN CORPUSCULAR HEMOGLOBIN 32 PG (25-34); MEAN CORPUSCULAR HGB CONC 32 G/DL (32-36); MEAN CORPUSCULAR VOLUME 101 FL (80-99); MONOCYTES # (AUTO) 0.2 X 10^3 (0.0-1.0); MONOCYTES % (AUTO) 3 % (0-12); NEUTROPHILS # (AUTO) 5.6 X 10^3 (1.8-7.8); NEUTROPHILS % (AUTO) 92 % (42-75); PLATELET COUNT 178 10^3/uL (130-400); RED BLOOD COUNT 3.47 10^6/uL (4.35-5.85); RED CELL DISTRIBUTION WIDTH 13.3 % (10.0-14.5); WHITE BLOOD COUNT 6.1 10^3/uL (4.3-11.0)
[2017-10-01 07:09] LABS: ALANINE AMINOTRANSFERASE 13 U/L (0-55); ALBUMIN 2.9 GM/DL (3.2-4.5); ALKALINE PHOSPHATASE 63 U/L (40-136); BILIRUBIN,TOTAL 0.4 MG/DL (0.1-1.0); BUN/CREATININE RATIO 14; CALCIUM 8.3 MG/DL (8.5-10.1); CARBON DIOXIDE 21 MMOL/L (21-32); CHLORIDE 109 MMOL/L (98-107); CREATININE SERUM 0.73 MG/DL (0.60-1.30); GFR ESTIMATED > 60; GLUCOSE 148 MG/DL (70-105); POTASSIUM 3.5 MMOL/L (3.6-5.0); SODIUM 139 MMOL/L (135-145); TOTAL PROTEIN 5.7 GM/DL (6.4-8.2)
--- NOTE | 2017-10-01 08:04 | Progress Note-Hospitalist ---
Subjective HPI/CC On Admission Date Seen by Provider: October 01, 2017 Time Seen by Provider: 07:40 CC: Dyspnea HPI: This is a 72-year-old white female clinic patient of Dr. Marie with a past medical history of neuropathy who presented to the ER with 3 day history of fever and malaise with diarrhea. She was found to have sepsis protocol was followed IV fluid resuscitation initiated and Levaquin was given for pneumonia diagnosed on chest x-ray. She reports that she doesn't drink alcohol to me that it appears that they reported that she drinks 4 beers a day so unclear on the reliability of her details. Currently she is having tremors and shakes because she is without her pain medication and her review her home meds and it didn't show any opioids except for Tylenol No. 3 but detox protocol was started. Chest x-ray was reviewed. Lactic acid has returned to normal Subjective/Events-last exam Patient doing much better Needs Lomotil 2 tabs 4 times a day instead of one that I ordered Once catheter removed and has no history of urinary retention she recalls Still tremors but unsure if that is chronic from anxiety or due to recent illness of sepsis Will need home oxygen and she agrees with that plan Overall doing well and much improved Review of Systems General: Fatigue, Malaise Pulmonary: Dyspnea Gastrointestinal: Diarrhea Focused Exam Lactate Level 09/29/17 19:30: Lactic Acid Level 3.54*H 09/29/17 22:00: Lactic Acid Level 2.82*H 09/30/17 00:50: Lactic Acid Level 1.02 Objective Exam Vital Signs Vital Signs Date Time Temp Pulse Resp B/P (MAP) Pulse Ox O2 Delivery O2 Flow Rate FiO2 10/01/17 14:09 91 Nasal Cannula 8.00 10/01/17 12:00 95.6 110 18 128/69 (88) Capillary Refill : Less Than 3 Seconds General Appearance: No Apparent Distress, WD/WN, Chronically ill Neck: Normal Inspection Respiratory: Crackles, Decreased Breath Sounds Cardiovascular: Regular Rate, Rhythm, No Edema Neurologic/Psychiatric: Alert, Oriented x3, No Motor/Sensory Deficits, Normal 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 Assessment/Plan Assessment and Plan Assess & Plan/Chief Complaint Assessment: Sepsis Bilateral pneumonia Acute exacerbation of COPD Possible alcohol withdrawal Chronic diarrhea maintain on Lomotil Plan: Maintain antibiotics IV steroids Lomotil Monitor labs Diagnosis/Problems Diagnosis/Problems (1) Sepsis Status: Resolved Qualifiers: Sepsis type: sepsis due to unspecified organism Qualified Codes: A41.9 - Sepsis, unspecified organism (2) Pneumonia Status: Acute Qualifiers: Pneumonia type: due to unspecified organism Laterality: bilateral Lung location: unspecified part of lung Qualified Codes: J18.9 - Pneumonia, unspecified organism (3) Neuropathy Status: Chronic (4) Patient is Christianity Status: Chronic (5) Chronic diarrhea Status: Chronic (6) Hypoxia Status: Acute (7) COPD exacerbation Status: Acute (8) Fall on same level Status: Acute Qualifiers: Encounter type: initial encounter Qualified Codes: W18.30XA - Fall on same level, unspecified, initial encounter (9) Altered mental status Status: Acute Qualifiers: Altered mental status type: unspecified Qualified Codes: R41.82 - Altered mental status, unspecified (10) Chronic pain Status: Chronic Qualifiers: Chronic pain type: chronic pain syndrome Qualified Codes: G89.4 - Chronic pain syndrome (11) Alcoholism Status: Chronic (12) Tremor due to substance abuse Status: Acute Clinical Quality Measures DVT/VTE Risk/Contraindication: Risk Factor Score Per Nursin RFS Level Per Nursing on Admit: 4+=Very High TIMBO RAY DO October 01, 2017 08:04
[2017-10-01] MEDS: DIPHENOXYLATE/ATROPINE 2.5MG/0.025MG (LOMOTIL) TAB PO SCH ×4 (08:08→21:41)
--- NOTE | 2017-10-01 09:00 | Diagnostic Imaging Report ---
INDICATION: Pulmonary rales COMPARISON: 09/30/2017. FINDINGS: Heterogeneous airspace and interstitial opacities in the lung bases are unchanged and greater on the left. Small left pleural effusion is present. No pneumothorax. Stable cardiomediastinal silhouette. Capsular calcification of bilateral breast implants are again seen. IMPRESSION: 1. Stable small bilateral pleural effusions with bibasilar heterogeneous opacities. Dictated by: Dictated on workstation # [id number]
[2017-10-01] MEDS ORDERED: LEVOFLOXACIN 750 MG/D5W 150 ML PRE-MIX IV SCH (16:00)
[2017-10-01] MEDS: TEMAZEPAM 15 MG (RESTORIL) CAP PO SCH (21:40)
[2017-10-01] MEDS: MELATONIN 3 MG TABLET PO SCH (21:41)
[2017-10-02] MEDS: RT-ALBUTEROL/IPRATROPIUM 3 ML (DUONEB) VIAL INH SCH ×6 (01:33→21:23)
[2017-10-02] MEDS: GABAPENTIN 300 MG (NEURONTIN) CAP PO SCH ×5 (03:45→19:52)
[2017-10-02] MEDS: HYDROcodone/APAP 5 MG/325 MG (LORTAB) TAB PO PRN ×2 (03:51→08:28)
[2017-10-02 04:00] VITALS: BP 92/50
[2017-10-02] MEDS: FOLIC ACID 1 MG TAB PO SCH (06:36)
[2017-10-02] MEDS: methylPREDNISolone 40 MG/ML (Solu-MEDROL) VIAL IV SCH ×2 (06:36→22:12)
[2017-10-02] MEDS: MULTIVIT W/MINERALS TAB (THERAGRAN M) PO SCH (06:36)
[2017-10-02] MEDS: MAGNESIUM OXIDE (MAG-OX)400 MG TAB PO SCH ×2 (06:36→18:18)
[2017-10-02] MEDS: PANTOPRAZOLE 40 MG (PROTONIX) TAB PO SCH (06:36)
[2017-10-02 07:06] LABS: BASOPHILS % (AUTO) 0 % (0-10); EOSINOPHILS % (AUTO) 0 % (0-10); HEMATOCRIT 37 % (35-52); LYMPHOCYTES # (AUTO) 0.4 X 10^3 (1.0-4.0); LYMPHOCYTES % (AUTO) 5 % (12-44); MEAN CORPUSCULAR HEMOGLOBIN 32 PG (25-34); MEAN CORPUSCULAR HGB CONC 32 G/DL (32-36); MEAN CORPUSCULAR VOLUME 101 FL (80-99); MEAN PLATELET VOLUME 10.1 FL (7.4-10.4); MONOCYTES # (AUTO) 0.5 X 10^3 (0.0-1.0); MONOCYTES % (AUTO) 6 % (0-12); NEUTROPHILS # (AUTO) 7.9 X 10^3 (1.8-7.8); NEUTROPHILS % (AUTO) 89 % (42-75); PLATELET COUNT 189 10^3/uL (130-400); RED CELL DISTRIBUTION WIDTH 13.5 % (10.0-14.5); WHITE BLOOD COUNT 8.9 10^3/uL (4.3-11.0)
[2017-10-02 07:21] LABS: ALBUMIN 3.2 GM/DL (3.2-4.5); BILIRUBIN,TOTAL 0.5 MG/DL (0.1-1.0); CALCIUM 8.9 MG/DL (8.5-10.1); POTASSIUM 3.4 MMOL/L (3.6-5.0); TOTAL PROTEIN 5.9 GM/DL (6.4-8.2)
[2017-10-02 08:00] VITALS: BP 108/56
[2017-10-02] MEDS: DIPHENOXYLATE/ATROPINE 2.5MG/0.025MG (LOMOTIL) TAB PO SCH ×4 (08:27→22:13)
[2017-10-02 12:00] VITALS: BP 128/77
--- NOTE | 2017-10-02 12:14 | Progress Note-Hospitalist ---
Subjective HPI/CC On Admission Date Seen by Provider: October 02, 2017 Time Seen by Provider: 11:00 CC: Dyspnea HPI: This is a 72-year-old white female clinic patient of Dr. Marie with a past medical history of neuropathy who presented to the ER with 3 day history of fever and malaise with diarrhea. She was found to have sepsis protocol was followed IV fluid resuscitation initiated and Levaquin was given for pneumonia diagnosed on chest x-ray. She reports that she doesn't drink alcohol to me that it appears that they reported that she drinks 4 beers a day so unclear on the reliability of her details. Currently she is having tremors and shakes because she is without her pain medication and her review her home meds and it didn't show any opioids except for Tylenol No. 3 but detox protocol was started. Chest x-ray was reviewed. Lactic acid has returned to normal Subjective/Events-last exam Patient doing about the same Feels very weak in tremulous because of that Will order physical therapy and occupational therapy May need swing bed Still requiring a great deal of oxygen of which she never had oxygen before likely she needed long-term before but the exacerbation pneumonia put her over the edge Needs stronger pain medicine so we'll change from hydrocodone to Percocet Wanted to change from primary care provider Dr. Marie but I informed her I do not take patient's of 's who I take care of their hospitalized patients Lomotil is helping the loose stools that are chronic for her Potassium low so we'll supplement Overall poor prognosis due to the severity of her COPD Review of Systems General: Fatigue, Malaise Pulmonary: Dyspnea Focused Exam Lactate Level 09/29/17 19:30: Lactic Acid Level 3.54*H 09/29/17 22:00: Lactic Acid Level 2.82*H 09/30/17 00:50: Lactic Acid Level 1.02 Objective Exam Vital Signs Vital Signs Date Time Temp Pulse Resp B/P (MAP) Pulse Ox O2 Delivery O2 Flow Rate FiO2 10/02/17 10:45 90 Nasal Cannula 10.00 10/02/17 08:00 96.5 91 18 108/56 (73) 10/02/17 07:06 90 Capillary Refill : Less Than 3 Seconds General Appearance: WD/WN, Chronically ill, Mild Distress, Thin Respiratory: Decreased Breath Sounds, Wheezing Cardiovascular: Regular Rate, Rhythm, No Edema Neurologic/Psychiatric: Alert, Oriented x3, No Motor/Sensory Deficits, Normal 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 Assessment/Plan Assessment and Plan Assess & Plan/Chief Complaint Assessment: Sepsis Bilateral pneumonia Acute exacerbation of COPD Possible alcohol withdrawal Chronic diarrhea maintained on Lomotil Plan: Maintain antibiotic Levaquin IV steroids Lomotil Monitor labs Replace potassium Percocet for pain issues Swing bed evaluation along with PT/OT Diagnosis/Problems Diagnosis/Problems (1) Sepsis Status: Resolved Qualifiers: Sepsis type: sepsis due to unspecified organism Qualified Codes: A41.9 - Sepsis, unspecified organism (2) Pneumonia Status: Acute Qualifiers: Pneumonia type: due to unspecified organism Laterality: bilateral Lung location: unspecified part of lung Qualified Codes: J18.9 - Pneumonia, unspecified organism (3) Neuropathy Status: Chronic (4) Patient is Amish Status: Chronic (5) Chronic diarrhea Status: Chronic (6) Hypoxia Status: Acute (7) COPD exacerbation Status: Acute (8) Fall on same level Status: Acute Qualifiers: Encounter type: initial encounter Qualified Codes: W18.30XA - Fall on same level, unspecified, initial encounter (9) Altered mental status Status: Resolved Qualifiers: Altered mental status type: unspecified Qualified Codes: R41.82 - Altered mental status, unspecified (10) Chronic pain Status: Chronic Qualifiers: Chronic pain type: chronic pain syndrome Qualified Codes: G89.4 - Chronic pain syndrome (11) Alcoholism Status: Chronic (12) Tremor due to substance abuse Status: Acute (13) Debility Status: Chronic (14) Poor prognosis Status: Chronic Clinical Quality Measures DVT/VTE Risk/Contraindication: Risk Factor Score Per Nursin RFS Level Per Nursing on Admit: 4+=Very High TIMBO RAY DO October 02, 2017 12:14
[2017-10-02] MEDS: oxyCODONE/APAP 5/325MG (PERCOCET 5) TABLET PO PRN ×2 (13:18→19:50)
[2017-10-02] MEDS: KCL 10 MEQ TAB (MICRO K) PO SCH ×2 (13:18→22:12)
[2017-10-02 16:00] VITALS: BP 106/53
[2017-10-02 20:00] VITALS: BP 107/51
[2017-10-02] MEDS: MELATONIN 3 MG TABLET PO SCH (22:12)
[2017-10-02] MEDS: TEMAZEPAM 15 MG (RESTORIL) CAP PO SCH (22:13)
[2017-10-03] MEDS: GABAPENTIN 300 MG (NEURONTIN) CAP PO SCH ×7 (00:13→22:32)
[2017-10-03 00:15] VITALS: BP 110/52
[2017-10-03] MEDS: RT-ALBUTEROL/IPRATROPIUM 3 ML (DUONEB) VIAL INH SCH ×6 (01:33→22:34)
[2017-10-03 04:28] VITALS: BP 109/57
[2017-10-03 06:32] LABS: BASOPHILS % (AUTO) 0 % (0-10); EOSINOPHILS % (AUTO) 0 % (0-10); HEMATOCRIT 37 % (35-52); HEMOGLOBIN 11.9 G/DL (11.5-16.0); LYMPHOCYTES # (AUTO) 0.5 X 10^3 (1.0-4.0); LYMPHOCYTES % (AUTO) 6 % (12-44); MEAN CORPUSCULAR HEMOGLOBIN 33 PG (25-34); MEAN CORPUSCULAR HGB CONC 32 G/DL (32-36); MEAN CORPUSCULAR VOLUME 100 FL (80-99); MEAN PLATELET VOLUME 10.3 FL (7.4-10.4); MONOCYTES # (AUTO) 0.5 X 10^3 (0.0-1.0); MONOCYTES % (AUTO) 6 % (0-12); NEUTROPHILS # (AUTO) 7.2 X 10^3 (1.8-7.8); NEUTROPHILS % (AUTO) 88 % (42-75); PLATELET COUNT 184 10^3/uL (130-400); RED BLOOD COUNT 3.66 10^6/uL (4.35-5.85); RED CELL DISTRIBUTION WIDTH 13.4 % (10.0-14.5); WHITE BLOOD COUNT 8.3 10^3/uL (4.3-11.0)
[2017-10-03] MEDS: FOLIC ACID 1 MG TAB PO SCH (06:35)
[2017-10-03] MEDS: MULTIVIT W/MINERALS TAB (THERAGRAN M) PO SCH (06:35)
[2017-10-03] MEDS: PANTOPRAZOLE 40 MG (PROTONIX) TAB PO SCH (06:35)
[2017-10-03 06:53] LABS: ALBUMIN 3.2 GM/DL (3.2-4.5); BILIRUBIN,TOTAL 0.6 MG/DL (0.1-1.0); CALCIUM 8.9 MG/DL (8.5-10.1); CREATININE SERUM 1.01 MG/DL (0.60-1.30); POTASSIUM 3.6 MMOL/L (3.6-5.0); TOTAL PROTEIN 6.1 GM/DL (6.4-8.2)
[2017-10-03 08:00] VITALS: BP 122/68
[2017-10-03] MEDS: oxyCODONE/APAP 5/325MG (PERCOCET 5) TABLET PO PRN ×3 (08:21→21:20)
[2017-10-03] MEDS: DIPHENOXYLATE/ATROPINE 2.5MG/0.025MG (LOMOTIL) TAB PO SCH ×4 (08:21→21:14)
[2017-10-03] MEDS: KCL 10 MEQ TAB (MICRO K) PO SCH ×2 (08:21→21:14)
[2017-10-03] MEDS: methylPREDNISolone 40 MG/ML (Solu-MEDROL) VIAL IV SCH ×2 (08:21→21:14)
--- NOTE | 2017-10-03 09:48 | Progress Note-Hospitalist ---
Subjective HPI/CC On Admission Date Seen by Provider: October 03, 2017 Time Seen by Provider: 09:00 CC: Dyspnea HPI: This is a 72-year-old white female clinic patient of Dr. Marie with a past medical history of neuropathy who presented to the ER with 3 day history of fever and malaise with diarrhea. She was found to have sepsis protocol was followed IV fluid resuscitation initiated and Levaquin was given for pneumonia diagnosed on chest x-ray. She reports that she doesn't drink alcohol to me that it appears that they reported that she drinks 4 beers a day so unclear on the reliability of her details. Currently she is having tremors and shakes because she is without her pain medication and her review her home meds and it didn't show any opioids except for Tylenol No. 3 but detox protocol was started. Chest x-ray was reviewed. Lactic acid has returned to normal Subjective/Events-last exam Patient feels much better today and wants to go home Did ambulate with her in the halls with oxygen Still requiring 8 L of oxygen so unsure if I can actually discharge her since she's never been on oxygen before Still on IV steroids and Levaquin every 48 hours Denies any pain since Percocet was started as she requested Overall patient appears to be very chronically declined Review of Systems General: Fatigue Pulmonary: Dyspnea Objective Exam Vital Signs Vital Signs Date Time Temp Pulse Resp B/P (MAP) Pulse Ox O2 Delivery O2 Flow Rate FiO2 10/03/17 07:20 92 Nasal Cannula 8.00 10/03/17 04:28 97.9 104 17 109/57 (74) 10/02/17 07:06 90 Capillary Refill : Less Than 3 Seconds General Appearance: No Apparent Distress, WD/WN, Chronically ill Respiratory: Decreased Breath Sounds Cardiovascular: Regular Rate, Rhythm, No Edema Neurologic/Psychiatric: Alert, Oriented x3, No Motor/Sensory Deficits, Normal 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 Assessment/Plan Assessment and Plan Assess & Plan/Chief Complaint Assessment: Sepsis Bilateral pneumonia Acute exacerbation of COPD Possible alcohol withdrawal? Chronic diarrhea maintained on Lomotil Plan: Maintain antibiotic Levaquin IV steroids Lomotil Monitor labs Replace potassium Percocet for pain issues Swing bed evaluation along with PT/OT? O2 evaluation in case she is able to go home Prognosis poor Diagnosis/Problems Diagnosis/Problems (1) Sepsis Status: Resolved Qualifiers: Sepsis type: sepsis due to unspecified organism Qualified Codes: A41.9 - Sepsis, unspecified organism (2) Pneumonia Status: Acute Qualifiers: Pneumonia type: due to unspecified organism Laterality: bilateral Lung location: unspecified part of lung Qualified Codes: J18.9 - Pneumonia, unspecified organism (3) Neuropathy Status: Chronic (4) Patient is Denominational Status: Chronic (5) Chronic diarrhea Status: Chronic (6) Hypoxia Status: Acute (7) COPD exacerbation Status: Acute (8) Fall on same level Status: Acute Qualifiers: Encounter type: initial encounter Qualified Codes: W18.30XA - Fall on same level, unspecified, initial encounter (9) Altered mental status Status: Resolved Qualifiers: Altered mental status type: unspecified Qualified Codes: R41.82 - Altered mental status, unspecified (10) Chronic pain Status: Chronic Qualifiers: Chronic pain type: chronic pain syndrome Qualified Codes: G89.4 - Chronic pain syndrome (11) Alcoholism Status: Chronic (12) Tremor due to substance abuse Status: Acute (13) Debility Status: Chronic (14) Poor prognosis Status: Chronic Clinical Quality Measures DVT/VTE Risk/Contraindication: Risk Factor Score Per Nursin RFS Level Per Nursing on Admit: 4+=Very High TIMBO RAY DO October 03, 2017 09:48
--- NOTE | 2017-10-03 10:19 | Pulmonary Consultation ---
History of Present Illness History of Present Illness Date of Consultation 10/03/17 10:10 Time Seen by Provider: 10:10 Date of Admission History of Present Illness 72yo with hx of COPD presented to ED secondary to fever, malaise and diarrhea. Pt was diagnoses with sepsis upon admission and started on sepsis protocol. Pt responded to IVF boluses. Pt was given LEvaquin for pneumonia. Dr. Gerardo is consulting me today secondary to hypoxia requiring 8 liters of oxygen. CXR shows pulmonary edema. Pt no longer has leukocytosis nor fever. Allergies and Home Medications Allergies Uncoded Allergies: PCN (Allergy, Unknown, 07/20/15) Home Medications Acetaminophen with Codeine 1 Each Tablet, 1-2 TAB PO Q6H PRN for PAIN, (Reported ) Biotin 5,000 Mcg Tab.rapdis, 5,000 MCG PO DAILY, (Reported) Diphenoxylate HCl/Atropine 1 Each Tablet, 2 EACH PO Q6H, (Reported) Gabapentin 300 Mg Capsule, 600 MG PO Q4H, (Reported) L.acidoph & Paracasei,B.lactis 1 Each Capsule, 1 EACH PO DAILY, (Reported) Pantoprazole Sod 40 Mg Tab, 40 MG PO DAILY, (Reported) Spironolactone 50 Mg Tablet, 50 MG PO DAILY, (Reported) Temazepam 30 Mg Capsule, 30 MG PO HS, (Reported) Past Oiwuhzc-Xjkgyd-Fixusc Hx Past Med/Social Hx: Reviewed Nursing Past Med/Soc Hx, Reviewed and Corrections made Patient Social History Alcohol Use: Denies Use Recreational Drug Use: No Smoking Status: Former Smoker Type Used: Cigarettes Former Smoker, Quit: September 29, 2010 Recent Foreign Travel: No Contact w/Someone Who Travel: No Recent Infectious Disease Expo: No Recent Hopitalizations: No Immunizations Up To Date Tetanus Booster (TDap): Unknown PED Vaccines UTD: Yes Seasonal Allergies Seasonal Allergies: Yes Past Medical History Surgeries: Yes (EGD/COLONOSCOPY, back surgery) Eye Surgery Respiratory: Yes Asthma, COPD Currently Using CPAP: No Currently Using BIPAP: No Cardiac: No High Cholesterol Neurological: Yes (spinal stenosis) TIA : No Reproductive Disorders: No Genitourinary: No Gastrointestinal: Yes (H. PYLORI) Gastroesophageal Reflux, House's Esophagus, Ulcer Musculoskeletal: Yes (spinal stenosis) Degenerate Disk Disease, Fibromyalgia, Chronic Back Pain Endocrine: No HEENT: Yes Cataract Loss of Vision: Denies Hearing Impairment: Denies Cancer: No Psychosocial: Yes Sleep Difficulties, Depression Integumentary: No Blood Disorders: No Family Medical History Abdominal aortic aneurysm 19 MOTHER Lehr's disease Arthritis 19 MOTHER Asthma 19 FATHER (GRANDFATHER) Cataracts 19 MOTHER Deafness or hearing loss 19 FATHER Glaucoma 19 MOTHER Headache disorder 19 MOTHER Hypertension Review of Systems Time Seen by Provider: 10:21 Exam Exam Vital Signs Date Time Temp Pulse Resp B/P (MAP) Pulse Ox O2 Delivery O2 Flow Rate FiO2 10/03/17 09:00 High Flow N/C 8.00 10/03/17 08:00 98.1 78 18 122/68 (86) 94 High Flow N/C 10.00 10/03/17 07:20 92 Nasal Cannula 8.00 10/03/17 04:28 97.9 104 17 109/57 (74) 94 High Flow N/C 10.00 10/03/17 01:33 94 Nasal Cannula 9.00 10/03/17 00:15 98.0 101 19 110/52 (71) 93 High Flow N/C 10.00 10/02/17 21:23 95 Nasal Cannula 10.00 10/02/17 20:05 High Flow N/C 8.00 10/02/17 20:00 97.7 112 20 107/51 (69) 92 High Flow N/C 10.00 10/02/17 19:05 92 Nasal Cannula 10.00 10/02/17 16:00 97.4 95 24 106/53 (70) 93 High Flow N/C 10.00 10/02/17 14:59 90 Nasal Cannula 10.00 10/02/17 12:00 96.1 91 18 128/77 (94) 96 High Flow N/C 10.00 10/02/17 10:45 90 Nasal Cannula 10.00 10/02/17 10:23 High Flow N/C 8.00 I & O 10/03/17 07:00 Intake Total 1710 ml Output Total 1650 ml Balance 60 ml General Appearance: No Apparent Distress, WD/WN, Chronically ill HEENT: PERRL/EOMI, Normal ENT Inspection, Pharynx Normal Neck: Normal Inspection Respiratory: Decreased Breath Sounds Cardiovascular: Regular Rate, Rhythm, No Edema Capillary Refill: Less Than 3 Seconds Extremity: Normal Capillary Refill, Normal Inspection, Normal Range of Motion, Non Tender, No Calf Tenderness, No Pedal Edema Neurologic/Psychiatric: Alert, Oriented x3, No Motor/Sensory Deficits, Normal Mood/Affect, 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
[2017-10-03] MEDS ORDERED: BUMETANIDE 1 MG/4 ML (BUMEX) VIAL IV NR (10:30)
--- NOTE | 2017-10-03 10:42 | Physical Therapy Evaluation ---
PT Evaluation-General Medical Diagnosis Admission Date September 29, 2017 at 16:45 Medical Diagnosis: sepsis/pneumonia/COPD exacerbation Onset Date: September 29, 2017 Therapy Diagnosis Therapy Diagnosis: debility Height/Weight Height (Feet): 5 Height (Inches): 4.00 Weight (Pounds): 130 Weight (Ounces): 7.0 Precautions Precautions/Isolations: Fall Prevention, Standard Precautions Weight Bear Status Right Lower Extremity: Right Full Weight Bearing Left Lower Extremity: Left Full Weight Bearing Referral Physician: Humaira Reason for Referral: Evaluation/Treatment Medical History Pertinent Medical History: COPD, GERD, Neuropathy Additional Medical History spinal stenosis Current History ED with fever/confusion/SOA/cough Reviewed History: Yes Social History Home: Single Level Current Living Status: Spouse Prior/Core FIM Prior Level of Function Functional [place] Measure 0=Not Assessed/NA 4=Minimal Assistance 1=Total Assistance 5=Supervision or Setup 2=Maximal Assistance 6=Modified [place] 3=Moderate Assistance 7=Complete [place] Bed Mobility: 7 Transfers (B,C,W/C) (FIM): 7 Gait: 7 Locomotion: 7 PT Evaluation-Current Subjective Patient agrees to PT. Pain Numeric Pain Scale: 0-No Pain Location: No Pain Reported Objective Patient Orientation: Normal For Age Problem Solving: Good Attachments: Oxygen (8L HF) ROM/Strength ROM Lower Extremities bilateral LE WNL Strength Lower Extremities 4+/5 grossly bilaterally Integumentary/Posture Integumentary refer to nursing notes Bowel Incontinence: No Bladder Incontinence: No Posture WFL Neuromuscular (Tone, Coordination, Reflexes) grossly intact Sensory Vision: Functional Hearing: Functional Sensation Right Lower Extremit: Impaired Sensation Left Lower Extremity: Impaired Transfers Functional [place] Measure 0=Not Assessed/NA 4=Minimal Assistance 1=Total Assistance 5=Supervision or Setup 2=Maximal Assistance 6=Modified [place] 3=Moderate Assistance 7=Complete [place] Transfers (B, C, W/C) (FIM): 7 Scootin Rollin Supine to/from Sit: 7 Sit to/from Stand: 7 Gait Mode of Locomotion: Walk Anticipated Mode of Locomotion: Walk Gait (FIM): 7 Distance (FIM): 3=150 ft Distance: 500' Gait Level of Assist: 7 Gait Assistive Device: None Comments/Gait Description safe and functional gait sequence/education with patient on ambulating with pulling O2 tank to improve pulmonary function. Balance Sitting Static: Normal Sitting Dynamic: Normal Standing Static: Normal Standing Dynamic: Normal Assessment/Needs 72 y.o. female, is currently at independent PLOF with all gross motor skills safely and does not requires skilled PT at this time. Education and demonstration with patient an pulling O2 tank while ambulating independently in hallway given with patient demonstrating good and safe technique. Rehab Potential: Fair PT Plan Treatment/Plan Treatment Plan: Discontinue PT, goals met Treatment Plan: Other Treatment Duration: October 03, 2017 Frequency: 1 time per week Estimated Hrs Per Day: .25 hour per day Patient and/or Family Agrees t: Yes Safety Risks/Education Patient Education: Safety Issues Teaching Recipient: Patient Teaching Methods: Demonstration, Discussion Response to Teaching: Verbalize Understanding, Return Demonstration Discharge Recommendations Therapy D/C Recommendations: Home w/ Family Support Time/GCodes Time In: 945 Time Out: 1002 Total Billed Treatment Time: 17 Total Billed Treatment 1 visit EVMod 17 min ILIR CÁRDENAS PT October 03, 2017 10:41
[2017-10-03] MEDS ORDERED: KCL 20 MEQ TAB (K-DUR) PO NR (11:00)
[2017-10-03] MEDS ORDERED: LEVOFLOXACIN 750 MG TAB (LEVAQUIN) PO SCH (11:00)
[2017-10-03 12:00] VITALS: BP 118/65
--- NOTE | 2017-10-03 14:51 | Occupational Therapy Eval ---
OT Evaluation-General/PLF Medical Diagnosis Admission Date September 29, 2017 at 16:45 Medical Diagnosis: sepsis/pneumonia/COPD exacerbation Onset Date: September 29, 2017 Therapy Diagnosis Therapy Diagnosis: decr activity tolerance, decreased IADLs Height/Weight Height (Feet): 5 Height (Inches): 4.00 Weight (Pounds): 130 Weight (Ounces): 7.0 Precautions Precautions/Isolations: Fall Prevention, Standard Precautions Safety Interventions: None Referral Physician: Humaira Referral Reason: Evaluation/Treatment Medical History Pertinent Medical History: COPD, GERD, Neuropathy, Smoking (hx) Additional Medical History BAcck surgery, eye surgery. Spinal stenosis. TIA. House's esophagus. Hemorrhoids, ulcer, chronic diarrhea. DJD. Fibromyalgia, chronic back pain. Anxiety, depression. Current History Ill for three days with fever, AMS. Also fell at home. Pulmonary edema. AMS with hypoxia. Reviewed History: Yes Social History Home: Single Level Current Living Status: Spouse Steps Into Home: 3 ADL-Prior Level of Function ADL PLOF Comments Pt reported that she has previously been able to manage all of her basic self care needs and can do things around the house except vacuum. She said that her back pain causes her to stop and rest before fatigue gets to her. 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 No pain mentioned. Appearance Alert, cooperative Current Glasses/Contacts: Yes Upper Extremity ROM Grossly WFL bilat Upper Extremity Strength Grossly WFL bilat ADL-Treatment ADL-Current Pt reported that she has been taking herself to the bathroom without assistance and took a shower without help this morning. She has been able to feed herself as well. Her said that he has gone for a walk with her this afternoon and she did not "wheeze" or have any problems. They do not anticipate any difficulties with discharge to home but acknowledge that the oxygen is a new issue. She is very comfortable pacing herself and taking breaks as needed. Functional [place] Measure 0=Not Assessed/NA 4=Minimal Assistance 1=Total Assistance 5=Supervision or Setup 2=Maximal Assistance 6=Modified [place] 3=Moderate Assistance 7=Complete IndependenceIRFPAI Quality Coding Scale 6 Independent with activity with or without an assistive device 5 Patient requires set up or clean up by helper. Patient completes activity by themselves 4 Supervision or touching assist (CGA). [place] provide cues , steadying assist 3 The helper provides less than half the effort to complete the activity 2 The helper provides more than half the effort to complete the activity 1 Dependent. The helper does all the effort to complete an activity 7 Patient refused to complete or attempt activity 9 The patient did not perform the activity before the current illness or injury 88 Not attempted due to Medical conditions or safety concerns Education OT Patient Education: Purpose of tx/functional activities, Rehab process Teaching Recipient: Patient, Significant Other Teaching Methods: Discussion Response to Teaching: Verbalize Understanding OT Education/Plan Problem List/Assessment Assessment: No Skilled OT Needs ID'd No skilled OT needs identified Discharge Recommendations Plan/Recommendations: Discontinue OT Treatment Plan/Plan of Care Treatment,Training & Education: No Patient would benefit from OT for education, treatment and training to promote independence in ADL's, mobility, safety and/or upper extremity function for ADL' s. Plan of Care: OTHER (DC) Treatment Duration: October 03, 2017 Frequency: 1 time per week Estimated Hrs Per Day: Other (DC) Agreement: Yes Rehab Potential: Good Time/GCodes Start Time: 13:56 Stop Time: 14:10 Total Time Billed (hr/min): 14 Billed Treatment Time visit, 14 minutes evaluation low intensity SHELBY BHARDWAJ OT October 03, 2017 14:51
[2017-10-03 16:00] VITALS: BP 102/52
[2017-10-03 20:00] VITALS: BP 100/54
[2017-10-03] MEDS: TEMAZEPAM 15 MG (RESTORIL) CAP PO SCH (21:14)
[2017-10-03] MEDS: MELATONIN 3 MG TABLET PO SCH (21:14)
[2017-10-04] VITALS: BP 98/63
[2017-10-04] MEDS: RT-ALBUTEROL/IPRATROPIUM 3 ML (DUONEB) VIAL INH SCH ×2 (02:16→07:09)
[2017-10-04] MEDS: GABAPENTIN 300 MG (NEURONTIN) CAP PO SCH ×2 (03:57→06:32)
[2017-10-04] MEDS: oxyCODONE/APAP 5/325MG (PERCOCET 5) TABLET PO PRN (04:00)
[2017-10-04] MEDS: FOLIC ACID 1 MG TAB PO SCH (06:32)
[2017-10-04] MEDS: PANTOPRAZOLE 40 MG (PROTONIX) TAB PO SCH (06:32)
[2017-10-04] MEDS: MULTIVIT W/MINERALS TAB (THERAGRAN M) PO SCH (06:32)
--- NOTE | 2017-10-04 07:14 | Pulmonary Progress Note ---
Subjective Time Seen by Provider: 07:16 Subjective/Events-last exam Pt is still requiring a lot of oxygen. She wants to go home. Exam Exam Vital Signs Date Time Temp Pulse Resp B/P (MAP) Pulse Ox O2 Delivery O2 Flow Rate FiO2 10/04/17 00:00 98.0 92 15 98/63 (75) 94 High Flow N/C 7.50 10/03/17 21:00 High Flow N/C 8.00 10/03/17 20:00 97.3 97 18 100/54 (69) 91 High Flow N/C 7.50 10/03/17 19:32 90 Nasal Cannula 8.00 10/03/17 16:00 96.5 100 18 102/52 (69) 90 High Flow N/C 7.50 10/03/17 14:55 91 Nasal Cannula 8.00 10/03/17 12:00 97.9 100 18 118/65 (82) 95 High Flow N/C 7.50 10/03/17 09:00 High Flow N/C 8.00 10/03/17 08:00 98.1 78 18 122/68 (86) 94 High Flow N/C 10.00 10/03/17 07:20 92 Nasal Cannula 8.00 I & O 10/04/17 07:00 Intake Total 1560 ml Output Total 1300 ml Balance 260 ml General Appearance: No Apparent Distress, WD/WN, Chronically ill HEENT: PERRL/EOMI, Normal ENT Inspection, Pharynx Normal Neck: Normal Inspection Respiratory: Decreased Breath Sounds Cardiovascular: Regular Rate, Rhythm, No Edema Capillary Refill: Less Than 3 Seconds Extremity: Normal Capillary Refill, Normal Inspection, Normal Range of Motion, Non Tender, No Calf Tenderness, No Pedal Edema Neurologic/Psychiatric: Alert, Oriented x3, No Motor/Sensory Deficits, Normal Mood/Affect, flatwork folder II-XII Norm as Tested Skin: Normal Color, Warm/Dry Lymphatic: No Adenopathy Results Lab Laboratory Tests 10/03/17 05:50 Assessment/Plan Assessment/Plan Sepsis - resolved PNeumonia - improving Pulmonary edema with pleural effusions -Check BNP , Hep lock IVF -restart home spironolactone -CHeck CTA r/o PE -wean oxygen as tolerated 254 EMPERATRIZ CHAN DO October 04, 2017 07:14
[2017-10-04] MEDS ORDERED: KCL 10 MEQ TAB (MICRO K) PO NR (07:15)
[2017-10-04] MEDS ORDERED: FUROSEMIDE 40 MG/4 ML INJ (LASIX) IVP ONE (07:15)
[2017-10-04] MEDS ORDERED: IOHEXOL 350 MG/ML 150 ML (OMNIPAQUE 350) VIAL IV ONE (07:30)
[2017-10-04] MEDS ORDERED: NS 250 ML (IVPB) BAG IV ONE (07:30)
[2017-10-04 08:00] VITALS: BP 104/60
[2017-10-04 08:22] LABS: ABG BASE EXCESS 9.2 MMOL/L (-2.5-2.5); ABG OXYGEN SATURATION 96 % (94-100); ABG PCO2 44 MMHG (35-45); ABG PH 7.49 (7.37-7.43); ABG PO2 67 MMHG (79-93); ABG TCO2 34.7 MMOL/L (21.0-31.0); ALLENS TEST POSITIVE; INSPIRED O2 10 L; PATIENT TEMP 97.4; VENTILATOR NO
[2017-10-04] MEDS: methylPREDNISolone 40 MG/ML (Solu-MEDROL) VIAL IV SCH (08:28)
[2017-10-04] MEDS: KCL 10 MEQ TAB (MICRO K) PO SCH (08:29)
[2017-10-04] MEDS: DIPHENOXYLATE/ATROPINE 2.5MG/0.025MG (LOMOTIL) TAB PO SCH (08:29)
--- NOTE | 2017-10-04 08:49 | Diagnostic Imaging Report ---
PROCEDURE: CT angiography of the chest with contrast. TECHNIQUE: Multiple contiguous axial images were obtained through the chest after uneventful bolus administration of intravenous contrast. Reconstructed CTA MIP acquisitions were also performed. INDICATION: Sepsis, pneumonia. There are no previous CTA chest examinations available for comparison. The plain film examination of the chest performed on 10/01/2017 did show mild bibasilar atelectasis/infiltrate and small bilateral pleural effusions. Those findings are again evident on this study and do not seem to have changed significantly. However, in the left lung base there is also a 1.6 x 2.1 cm area of diminished density. This seems to a different texture than the atelectasis/infiltrate in the left lower lobe. There do appear to be vessels extending through this area indicating it is unlikely to be a solid mass. Bronchoalveolar carcinoma can present in this manner however and the possibility that this mass is neoplastic should certainly be considered. I would recommend a short-term (4-6 week) followup CTA chest exam be performed for further study. There are severe emphysematous changes involving both lungs. The heart size is within normal limits. Sparse coronary artery calcifications are evident. The aorta is not abnormally dilated and there is no defect within the pulmonary arteries to indicate pulmonary embolus. There are a few mediastinal nodes. These are not significantly large and are probably reactive nodes. These nodes could also be further evaluated on the followup CTA chest exam. The thyroid gland where visualized is unremarkable. There are bilateral calcified breast implants in place. There is a bulge along the medial aspect of the right breast implant but there is no clearance for rupture of the implant. However, this portion of the implant is not visualized in its entirety. If further study is desired, ultrasound would be recommended. The sections through the upper abdomen fail to show any sign of any acute abnormality. The bone windows show a roughly 20-30% compression deformity of the superior endplate of T10. This injury appears to be long-standing in nature. There is no acute bony abnormality noted. IMPRESSION: 1. There is bibasilar pneumonia/atelectasis and small bilateral pleural effusions. The area of slightly altered density in the left lower lobe is of uncertain etiology but could be neoplastic in nature. Recommendations as above. 2. There is no acute cardiopulmonary abnormality identified otherwise. In particular, there is no sign of aortic dissection or pulmonary embolus. 2. There are severe emphysematous changes involving both lungs. 4. There is a bulge along the medial aspect of the right breast implant. Additional considerations as above. 5. There does appear to be a long-standing 20-30% compression fracture. 6. These results were discussed with Dr. Gerardo. Dictated by: Dictated on workstation # [id number]
[2017-10-04 08:57] LABS: BASOPHILS % (AUTO) 0 % (0-10); EOSINOPHILS % (AUTO) 0 % (0-10); HEMATOCRIT 40 % (35-52); HEMOGLOBIN 12.8 G/DL (11.5-16.0); LYMPHOCYTES # (AUTO) 0.7 X 10^3 (1.0-4.0); LYMPHOCYTES % (AUTO) 11 % (12-44); MEAN CORPUSCULAR HEMOGLOBIN 33 PG (25-34); MEAN CORPUSCULAR HGB CONC 32 G/DL (32-36); MEAN CORPUSCULAR VOLUME 102 FL (80-99); MEAN PLATELET VOLUME 9.9 FL (7.4-10.4); MONOCYTES # (AUTO) 0.6 X 10^3 (0.0-1.0); MONOCYTES % (AUTO) 9 % (0-12); NEUTROPHILS # (AUTO) 5.7 X 10^3 (1.8-7.8); NEUTROPHILS % (AUTO) 81 % (42-75); PLATELET COUNT 234 10^3/uL (130-400); RED BLOOD COUNT 3.89 10^6/uL (4.35-5.85); RED CELL DISTRIBUTION WIDTH 13.5 % (10.0-14.5)
[2017-10-04] MEDS ORDERED: SPIRONOLACTONE 25 MG (ALDACTONE) TAB PO SCH (09:00)
[2017-10-04 09:17] LABS: CALCIUM 8.7 MG/DL (8.5-10.1); CREATININE SERUM 1.17 MG/DL (0.60-1.30); MAGNESIUM 2.1 MG/DL (1.8-2.4); PHOSPHORUS 2.7 MG/DL (2.3-4.7)
--- NOTE | 2017-10-04 09:53 | Discharge Summary-Hospitalist ---
Diagnosis/Chief Complaint Date of Admission September 29, 2017 at 16:45 Date of Discharge Discharge Date: October 04, 2017 Admission Diagnosis Assessment: Sepsis Pneumonia Possible alcohol withdrawal Severe neuropathy COPD Plan: IV steroids Detox protocol Check labs in a.m. Monitor closely Restarted all home meds Discharge Diagnosis Assessment: Sepsis Bilateral pneumonia Acute exacerbation of COPD Possible alcohol withdrawal? Chronic diarrhea maintained on Lomotil Plan: Maintain antibiotic Levaquin IV steroids Lomotil Monitor labs Replace potassium Percocet for pain issues Swing bed evaluation along with PT/OT? O2 evaluation in case she is able to go home Prognosis poor (1) Sepsis Status: Resolved (2) Pneumonia Status: Acute (3) Neuropathy Status: Chronic (4) Patient is Nondenominational Status: Chronic (5) Chronic diarrhea Status: Chronic (6) Hypoxia Status: Acute (7) COPD exacerbation Status: Acute (8) Fall on same level Status: Acute (9) Altered mental status Status: Resolved (10) Chronic pain Status: Chronic (11) Alcoholism Status: Chronic (12) Tremor due to substance abuse Status: Acute (13) Debility Status: Chronic (14) Poor prognosis Status: Chronic Discharge Summary Discharge Physical Exam Allergies: Coded Allergies: Penicillins (Verified Allergy, Unknown, 10/04/17) Vitals & I&Os Vital Signs Date Time Temp Pulse Resp B/P (MAP) Pulse Ox O2 Delivery O2 Flow Rate FiO2 10/04/17 09:00 High Flow N/C 10.00 10/04/17 08:00 97.1 100 18 104/60 (75) 90 10/02/17 07:06 90 General Appearance: Alert, Oriented X3, Cooperative Respiratory: Clear to Auscultation, Normal Air Movement Cardiovascular: Regular Rate, Normal S1, Normal S2 Psych/Mental Status: Mental Status NL, Mood NL Hospital Course Hospital course: Patient had an extensive lengthy hospital course due to the severity of her COPD and pneumonia she required high levels of oxygen supplementation after BiPAP was discontinued. Levaquin was chosen due to her allergies and severe COPD requiring IV steroids. Dr. Cornelius was consulted CT chest ordered showing somewhat of a concern for a mass in the left lower lobe and I did speak with radiology regarding that and will need a repeat in 3-4 weeks but history of 3 pack-a-day smoker places risk for cancer and she is aware of that. I did talk to her and her about these results and did place a palliative care consult. Overall prognosis poor but we will work on swing bed to decrease oxygen requirements. Labs (last 24 hrs) Laboratory Tests 10/03/17 12:05: B-Type Natriuretic Peptide 161.8H 10/04/17 08:08: White Blood Count 7.0, Red Blood Count 3.89L, Hemoglobin 12.8, Hematocrit 40, Mean Corpuscular Volume 102H, Mean Corpuscular Hemoglobin 33, Mean Corpuscular Hemoglobin Concent 32, Red Cell Distribution Width 13.5, Platelet Count 234, Mean Platelet Volume 9.9, Neutrophils (%) (Auto) 81H, Lymphocytes (%) (Auto) 11L , Monocytes (%) (Auto) 9, Eosinophils (%) (Auto) 0, Basophils (%) (Auto) 0, Neutrophils # (Auto) 5.7, Lymphocytes # (Auto) 0.7L, Monocytes # (Auto) 0.6, Eosinophils # (Auto) 0.0, Basophils # (Auto) 0.0, Sodium Level 138, Potassium Level 4.0, Chloride Level 96L, Carbon Dioxide Level 33H, Anion Gap 9, Blood Urea Nitrogen 22H, Creatinine 1.17, Estimat Glomerular Filtration Rate 45, BUN/ Creatinine Ratio 19, Glucose Level 106H, Calcium Level 8.7, Phosphorus Level 2.7 , Magnesium Level 2.1 10/04/17 08:10: Blood Gas Puncture Site LEFT BRACHIAL, Blood Gas Patient Temperature 97.4, Arterial Blood pH 7.49H, Arterial Blood Partial Pressure CO2 44, Arterial Blood Partial Pressure O2 67L, Arterial Blood HCO3 33H, Arterial Blood Total CO2 34.7H , Arterial Blood Oxygen Saturation 96, Arterial Blood Base Excess 9.2H, [place] Test POSITIVE, Blood Gas Ventilator Setting NO, Blood Gas Inspired Oxygen 10 L Microbiology 09/29/17 Blood Culture - Preliminary, Resulted No growth 09/29/17 Influenza Types A,B Antigen (BETH) - Final, Complete Patient resulted labs reviewed. Pending Labs Laboratory Tests 10/04/17 08:08: White Blood Count 7.0, Red Blood Count 3.89, Hemoglobin 12.8, Hematocrit 40, Mean Corpuscular Volume 102, Mean Corpuscular Hemoglobin 33, Mean Corpuscular Hemoglobin Concent 32, Red Cell Distribution Width 13.5, Platelet Count 234, Mean Platelet Volume 9.9, Neutrophils (%) (Auto) 81, Lymphocytes (%) (Auto) 11, Monocytes (%) (Auto) 9, Eosinophils (%) (Auto) 0, Basophils (%) (Auto) 0, Neutrophils # (Auto) 5.7, Lymphocytes # (Auto) 0.7, Monocytes # (Auto) 0.6, Eosinophils # (Auto) 0.0, Basophils # (Auto) 0.0, Sodium Level 138, Potassium Level 4.0, Chloride Level 96, Carbon Dioxide Level 33, Anion Gap 9, Blood Urea Nitrogen 22, Creatinine 1.17, Estimat Glomerular Filtration Rate 45, BUN/ Creatinine Ratio 19, Glucose Level 106, Calcium Level 8.7, Phosphorus Level 2.7 , Magnesium Level 2.1 10/04/17 08:10: Blood Gas Puncture Site LEFT BRACHIAL, Blood Gas Patient Temperature 97.4, Arterial Blood pH 7.49, Arterial Blood Partial Pressure CO2 44, Arterial Blood Partial Pressure O2 67, Arterial Blood HCO3 33, Arterial Blood Total CO2 34.7, Arterial Blood Oxygen Saturation 96, Arterial Blood Base Excess 9.2, [place] Test POSITIVE, Blood Gas Ventilator Setting NO, Blood Gas Inspired Oxygen 10 L Discussion & Recommendations Discharge Planning: <30 minutes discharge planning Discharge Home Medications: Active Scripts Active Reported Probiotic (L.acidoph & Paracasei,B.lactis) 1 Each Capsule 1 Each PO DAILY Biotin 5,000 Mcg Tab.rapdis 5,000 Mcg PO DAILY Diphenoxylate-Atrop 2.5-0.025 (Diphenoxylate HCl/Atropine) 1 Each Tablet 2 Each PO Q6H Spironolactone 50 Mg Tablet 50 Mg PO DAILY Gabapentin 300 Mg Capsule 600 Mg PO Q4H Acetaminophen-Cod #4 Tablet (Acetaminophen with Codeine) 1 Each Tablet 1-2 Tab PO Q6H PRN Temazepam 30 Mg Capsule 30 Mg PO HS Protonix Tab (Pantoprazole Sod) 40 Mg Tab 40 Mg PO DAILY Instructions to patient/family Please see electronic discharge instructions given to patient. Clinical Quality Measures DVT/VTE Risk/Contraindication: Risk Factor Score Per Nursin RFS Level Per Nursing on Admit: 4+=Very High Problem Qualifiers (1) Sepsis: Sepsis type: sepsis due to unspecified organism Qualified Codes: A41.9 - Sepsis, unspecified organism (2) Pneumonia: Pneumonia type: due to unspecified organism Laterality: bilateral Lung location: unspecified part of lung Qualified Codes: J18.9 - Pneumonia, unspecified organism (3) Fall on same level: Encounter type: initial encounter Qualified Codes: W18.30XA - Fall on same level, unspecified, initial encounter (4) Altered mental status: Altered mental status type: unspecified Qualified Codes: R41.82 - Altered mental status, unspecified (5) Chronic pain: Chronic pain type: chronic pain syndrome Qualified Codes: G89.4 - Chronic pain syndrome TIMBO RAY DO October 04, 2017 09:53
[2017-10-05] MEDS ORDERED: ALPR0.254 PO (10:35)
[2017-10-05] MEDS ORDERED: DIPH1TAB25 PO (10:35)
[2017-10-05] MEDS ORDERED: ACET1TAB45 PO (10:35)
[2017-10-05] MEDS ORDERED: IPRA3AMP INH (10:35)
[2017-10-05] MEDS ORDERED: OXYC-471 PO (10:35)
[2017-10-05] MEDS ORDERED: PRED10TA22 PO (10:35)
== END 2017-10-04 09:54 | disposition swing bed (61) | DRG 871 ==
LOC: EDUNIT# 12:49 → ER 12:51 → 4TH 16:45
PROVIDERS: ADMIT Family Medicine; ATTEND Family Medicine
DX: A41.9 Sepsis, unspecified organism (principal); J18.9 Pneumonia, unspecified organism; J44.0 Chronic obstructive pulmonary disease with (acute) lower respiratory infection; J44.1 Chronic obstructive pulmonary disease with (acute) exacerbation; J81.1 Chronic pulmonary edema; J90 Pleural effusion, not elsewhere classified; R91.8 Other nonspecific abnormal finding of lung field; R09.02 Hypoxemia; E87.6 Hypokalemia; K52.9 Noninfective gastroenteritis and colitis, unspecified; F10.20 Alcohol dependence, uncomplicated; R41.82 Altered mental status, unspecified; G25.1 Drug-induced tremor; R51 Headache; E86.1 Hypovolemia; M79.7 Fibromyalgia; E78.00 Pure hypercholesterolemia, unspecified; K22.70 Barrett's esophagus without dysplasia; J30.2 Other seasonal allergic rhinitis; F41.9 Anxiety disorder, unspecified; F32.9 Major depressive disorder, single episode, unspecified; G47.9 Sleep disorder, unspecified; G62.9 Polyneuropathy, unspecified; G89.29 Other chronic pain; R53.81 Other malaise; W18.30XA Fall on same level, unspecified, initial encounter; Z87.891 Personal history of nicotine dependence; Z87.11 Personal history of peptic ulcer disease; Z86.73 Personal history of transient ischemic attack (TIA), and cerebral infarction without residual deficits
CPT/HCPCS: 36415; 36600; 70450; 71045; 71046; 71275; 72125; 80048; 80053; 80320; 81000; 82550; 82805; 82962; 83605; 83735; 83880; 84100; 85007; 85025; 85027; 85610; 85730; 87040; 87804; 94640; 94760; 96361; 96365; 96375

== ENCOUNTER 2017-10-04 09:23 | Inpatient (IN) | payer MEDICARE, OTHER ==
[~2017-10-04] VITALS: Ht 162.6 cm; Wt 59.2 kg
[~2017-10-04 09:23] MED LIST changes: +BIOT5000 PO; +L.AC1CAP6 PO; +SPIR50TA2 PO
[2017-10-04] MEDS ORDERED: D5 1/2 NS 1000 ML IV SOLUTION 1,000 ML IV PRN (10:00)
[2017-10-04] MEDS ORDERED: CATHETER FLUSH 10 ML SYR IV PRN (10:00)
[2017-10-04] MEDS ORDERED: SENNA W/DOCUSATE (SENOKOT S) TABLET PO PRN (10:00)
[2017-10-04] MEDS ORDERED: ANTACID SUSP 30 ML UDC (MYLANTA) PO PRN (10:00)
[2017-10-04] MEDS ORDERED: RT-ALBUTEROL/IPRATROPIUM 3 ML (DUONEB) VIAL INH PRN (10:00)
[2017-10-04] MEDS ORDERED: ONDANSETRON 4 MG/2 ML (SDV) Z0FRAN IV PRN (10:00)
[2017-10-04] MEDS ORDERED: ALPRAZolam 0.25 MG (XANAX) TAB PO PRN (10:00)
[2017-10-04] MEDS ORDERED: LORazepam 1 MG (ATIVAN) TAB PO PRN (10:00)
[2017-10-04] MEDS ORDERED: ONDANSETRON 4 MG (ZOFRAN) ORAL DISSOLVE TAB SL PRN (10:00)
[2017-10-04] MEDS ORDERED: LORazepam INJ 2 MG/ML (ATIVAN) VIAL IM/IV PRN (10:00)
[2017-10-04] MEDS ORDERED: RT-ALBUTEROL/IPRATROPIUM 3 ML (DUONEB) VIAL ONE (10:03)
--- OUTSIDE RECORDS SUMMARY | 2017-10-04 10:09 | XMS REPORT | Continuity of Care Document ---
Author Author [facility] Organization [facility] Address Unknown Phone Unavailable Allergies Active Description Code Type Severity Reaction Onset Reported/Identified Relationship to Patient Clinical Status Yes PCN PCN Unknown N/ A 07/20/2015 Medications There is no data. Problems Date Dx Coded Attending Type Code Diagnosis Diagnosed By 11/08/2012 BLUE JUAREZ MD Ot 272.0 11/08/2012 ANN SHEFFIELD, BLUE Ot 305.1 11/08/2012 ANN SHEFFIELD, BLUE Ot 455.0 11/08/2012 ANN SHEFFIELD, BLUE Ot 455.3 11/08/2012 ANN SHEFFIELD, BLUE Ot 530.11 11/08/2012 ANN SHEFFIELD, AUBREYAAKI Ot 535.50 11/08/2012 ANN SHEFFIELD, AUBREYAAKI Ot 787.99 11/29/2012 RAJANI SHEFFIELD, CHRIS D Ot 041.04 11/29/2012 RAJANI SHEFFIELD, CHRIS D Ot 112.0 11/29/2012 RAJANI SHEFFIELD, CHRIS D Ot 263.9 11/29/2012 RAJANI SHEFFIELD, CHRIS D Ot 272.0 11/29/2012 RAJANI SHEFFIELD, CHRIS D Ot 300.00 11/29/2012 RAJANI SHEFFIELD, CHRIS D Ot 311 11/29/2012 RAJANI SHEFFIELD, CHRIS D Ot 355.9 11/29/2012 RAJANI SHEFFIELD, CHRIS D Ot 401.9 11/29/2012 RAJANI SHEFFIELD, CHRIS D Ot 530.81 11/29/2012 RAJANI SHEFFIELD, CHRIS D Ot 535.50 11/29/2012 RAJANI SHEFFIELD, CHRIS D Ot 599.0 11/29/2012 RAJANI SHEFFIELD, CHRIS D Ot 722.6 11/29/2012 RAJANI SHEFFIELD, CHRIS D Ot 729.1 11/29/2012 RAJANI SHEFFIELD, CHRIS D Ot 799.02 11/29/2012 RAJANI SHEFFIELD, CHRIS D Ot 923.9 11/29/2012 RAJANI SHEFFIELD, CHRIS D Ot 924.5 11/29/2012 RAJANI SHEFFIELD, CHRIS D Ot 965.09 11/29/2012 RAJANI SHEFFIELD, CHRIS D Ot E849.0 11/29/2012 RAJANI SHEFFEILD, CHRIS D Ot E888.9 11/29/2012 RAJANI SHEFFIELD, CHRIS D Ot E980.0 11/29/2012 RAJANI SHEFFIELD, CHRIS D Ot V12.71 12/27/2012 ERWIN SHEFFIELD, ANGELES T Ot 599.0 12/27/2012 ERWIN SHEFFIELD, ANGELES T Ot 780.60 12/27/2012 ERWIN SHEFFIELD, ANGELES T Ot 787.02 12/27/2012 ERWIN SHEFFIELD, ANGELES T Ot 787.91 12/18/2014 Ot 443.9 12/18/2014 Ot 724.79 12/18/2014 Ot 729.5 12/18/2014 Ot 492.8 12/18/2014 Ot 562.10 12/18/2014 Ot 597.0 12/18/2014 Ot V81.5 12/18/2014 Ot 729.5 12/18/2014 ANN SHEFFIELD, BLUE Ot V72.84 12/18/2014 RAJANI SHEFFIELD, CHRIS D Ot 492.8 12/18/2014 RAJANI SHEFFIELD, CHRIS D Ot 562.10 12/18/2014 RAJANI SHEFFIELD, CHRIS D Ot 564.00 12/18/2014 RAJANI SHEFFIELD, CHRIS D Ot 599.70 12/18/2014 EMILY LINDQUIST [employer]ENT[employer] SUPERVISOR Ot 719.47 JOINT PAIN-ANKLE 12/18/2014 EMILY LINDQUIST [employer]PENT[employer] SUPERVISOR Ot 845.00 SPRAIN OF ANKLE NOS 12/18/2014 EMILY LINDQUIST [employer]ENT[employer] SUPERVISOR Ot E000.8 OTHER EXTERNAL CAUSE STATUS 12/18/2014 EMILY LINDQUIST [employer] SUPERVISOR Ot E927.0 OVEREXERTION FROM SUDDEN STRENUOUS MOVEM 12/18/2014 Ot 443.9 12/18/2014 Ot 724.79 12/18/2014 Ot 729.5 12/18/2014 Ot 492.8 12/18/2014 Ot 562.10 12/18/2014 Ot 597.0 12/18/2014 Ot V81.5 12/18/2014 Ot 729.5 12/18/2014 ANN SHEFFIELD, TAKAAKI Ot V72.84 12/18/2014 RAJANI SHEFFIELD, CHRIS D Ot 492.8 12/18/2014 RAJNAI SHEFFIELD, CHRIS D Ot 562.10 12/18/2014 RAJANI SHEFFIELD, CHRIS D Ot 564.00 12/18/2014 RAJANI SHEFFIELD, CHRIS D Ot 599.70 05/29/2015 Ot 724.79 05/29/2015 Ot 729.5 05/29/2015 Ot 492.8 05/29/2015 Ot 562.10 05/29/2015 Ot 597.0 05/29/2015 Ot V81.5 05/29/2015 Ot 729.5 05/29/2015 ANN SHEFFIELD, BLUE Ot V72.84 05/29/2015 RAJANI SHEFFIELD, CHRIS D Ot 492.8 05/29/2015 RAJANI SHEFFIELD, CHRIS D Ot 562.10 05/29/2015 RAJANI SHEFFIELD, CHRIS D Ot 564.00 05/29/2015 RAJANI SHEFFIELD, CHRIS D Ot 599.70 07/22/2015 CORY LOGAN, TIMBO Ot A41.9 SEPSIS, UNSPECIFIED ORGANISM 07/22/2015 CORY LOGAN TIMBO Ot D64.9 ANEMIA, UNSPECIFIED 07/22/2015 CORY LOGAN TMIBO Ot E78.5 HYPERLIPIDEMIA, UNSPECIFIED 07/22/2015 CORY DO TIMBO Ot E86.0 07/22/2015 CORY DO TIMBO Ot E87.6 HYPOKALEMIA 07/22/2015 CORY LOGAN TIMBO Ot F32.9 MAJOR DEPRESSIVE DISORDER, SINGLE EPISOD 07/22/2015 CORY DO TIMBO Ot G62.9 POLYNEUROPATHY, UNSPECIFIED 07/22/2015 CORY LOGAN TIMBO Ot J44.9 CHRONIC OBSTRUCTIVE PULMONARY DISEASE, U 07/22/2015 CORY DO TIMBO Ot K21.9 GASTRO-ESOPHAGEAL REFLUX DISEASE WITHOUT 07/22/2015 CORY LOGAN TIMBO Ot M79.7 FIBROMYALGIA 07/22/2015 CORY LOGAN TIMBO Ot R60.0 LOCALIZED EDEMA 07/22/2015 CORY LOGAN TIMBO Ot R78.81 07/22/2015 CORY LOGAN TIMBO Ot T81.4XXA INFECTION FOLLOWING A PROCEDURE, INITIAL 07/22/2015 TIMBO RAY DO Ot Z86.73 PRSNL HX OF TIA (TIA), AND CEREB INFRC W 07/22/2015 TIMBO RAY DO Ot Z87.891 PERSONAL HISTORY OF NICOTINE DEPENDENCE 07/22/2015 OMAIRA SHEFFIELD, FABY Prado Ot Z01.810 01/02/2017 FABY CASTANO MD, Ot Z01.810 ENCOUNTER FOR PREPROCEDURAL CARDIOVASCUL 01/02/2017 TRACIE, LORNE [employer] OPERATIVE Ot E78.00 PURE HYPERCHOLESTEROLEMIA, UNSPECIFIED 01/02/2017 TRACIE, LORNE [employer] OPERATIVE Ot F32.9 MAJOR DEPRESSIVE DISORDER, SINGLE EPISOD 01/02/2017 TRACIE, LORNE [employer] OPERATIVE Ot F41.9 ANXIETY DISORDER, UNSPECIFIED 01/02/2017 TRACIE, LORNE [employer] OPERATIVE Ot K21.9 GASTRO-ESOPHAGEAL REFLUX DISEASE WITHOUT 01/02/2017 TRACIE, LORNE [employer] OPERATIVE Ot L03.116 CELLULITIS OF LEFT LOWER LIMB 01/02/2017 TRACIE, LORNE [employer] OPERATIVE Ot M47.9 SPONDYLOSIS, UNSPECIFIED 01/02/2017 TRACIE, LORNE [employer] OPERATIVE Ot S80.812A ABRASION, LEFT LOWER LEG, INITIAL ENCOUN 01/02/2017 TRACIE, LORNE [employer] OPERATIVE Ot S81.852A OPEN BITE, LEFT LOWER LEG, INITIAL ENCOU 01/02/2017 TRACIE, LORNE [employer] OPERATIVE Ot W54.0XXA BITTEN BY DOG, INITIAL ENCOUNTER 01/02/2017 TRACIE, LORNE [employer] OPERATIVE Ot Z86.73 PRSNL HX OF TIA (TIA), AND CEREB INFRC W 09/29/2017 FABY CASTANO MD Ot Z01.810 ENCOUNTER FOR PREPROCEDURAL CARDIOVASCUL 09/29/2017 FABY CASTANO MD Ot Z01.810 ENCOUNTER FOR PREPROCEDURAL CARDIOVASCUL 10/01/2017 VANESSA SHEFFIELD, MADELINE Marshall Ot A41.9 SEPSIS, UNSPECIFIED ORGANISM 10/01/2017 MADELINE MENDEZ MD Ot E78.00 PURE HYPERCHOLESTEROLEMIA, UNSPECIFIED 10/01/2017 MADELINE MENDEZ MD Ot E86.1 HYPOVOLEMIA 10/01/2017 MADELINE MENDEZ MD Ot F32.9 MAJOR DEPRESSIVE DISORDER, SINGLE EPISOD 10/01/2017 VANESSA MD, MADELINE M Ot F41.9 ANXIETY DISORDER, UNSPECIFIED 10/01/2017 MADELINE MENDEZ MD, Ot G47.9 SLEEP DISORDER, UNSPECIFIED 10/01/2017 MADELINE MENDEZ MD Ot J18.9 PNEUMONIA, UNSPECIFIED ORGANISM 10/01/2017 MADELINE MENDEZ MD Ot J30.2 OTHER SEASONAL ALLERGIC RHINITIS 10/01/2017 MADELINE MENDEZ MD Ot J44.0 CHRONIC OBSTRUCTIVE PULMON DISEASE W ACU 10/01/2017 MADELINE MENDEZ MD, Ot J44.1 CHRONIC OBSTRUCTIVE PULMONARY DISEASE W 10/01/2017 MADELINE MENDEZ MD Ot K21.9 GASTRO-ESOPHAGEAL REFLUX DISEASE WITHOUT 10/01/2017 MADELINE MENDEZ MD, Ot 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 10/01/2017 MADELINE MENDEZ MD Ot K64.9 UNSPECIFIED HEMORRHOIDS 10/01/2017 MADELINE MENDEZ MD, Ot M48.00 SPINAL STENOSIS, SITE UNSPECIFIED 10/01/2017 MADELINE MENDEZ MD Ot M79.7 FIBROMYALGIA 10/01/2017 MADELINE MENDEZ MD Ot R09.02 HYPOXEMIA 10/01/2017 MADELINE MENDEZ MD Ot R41.82 ALTERED MENTAL STATUS, UNSPECIFIED 10/01/2017 MADELINE MENDEZ MD Ot R51 HEADACHE 10/01/2017 MADELINE MENDEZ MD Ot W18.30XA FALL ON SAME LEVEL, UNSPECIFIED, INITIAL 10/01/2017 MADELINE MENDEZ MD Ot Z72.89 OTHER PROBLEMS RELATED TO LIFESTYLE 10/01/2017 MADELINE MENDEZ MD Ot Z86.73 PRSNL HX OF TIA (TIA), AND CEREB INFRC W 10/01/2017 MADELINE MENDEZ MD Ot Z87.11 PERSONAL HISTORY OF PEPTIC ULCER DISEASE 10/01/2017 MADELINE MENDEZ MD, Ot Z87.891 PERSONAL HISTORY OF NICOTINE DEPENDENCE 10/01/2017 MADELINE MENDEZ MD Ot Z91.81 HISTORY OF FALLING Procedures There is no data. Results Test Result Range Influenza virus A and B antigen detection - 09/29/17 13:03 FLU RESULT NEGATIVE FOR INFLUENZA A AND B ANTIGENS BY [facility] Complete blood count (CBC) with automated white blood cell (WBC) differential - 09/29/17 13:30 Blood leukocytes automated count (number/volume) 16.9 10*3/uL 4.3-11.0 Blood erythrocytes automated count (number/volume) 4.28 10*6/uL 4.35-5.85 Venous blood hemoglobin measurement (mass/volume) 14.0 g/dL 11.5-16.0 Blood hematocrit (volume fraction) 43 % 35-52 Automated erythrocyte mean corpuscular volume 100 [foz_us] 80-99 Automated erythrocyte mean corpuscular hemoglobin (mass per erythrocyte) 33 pg 25-34 Automated erythrocyte mean corpuscular hemoglobin concentration measurement ( mass/volume) 33 g/dL 32-36 Automated erythrocyte distribution width ratio 13.3 % 10.0-14.5 Automated blood platelet count (count/volume) 237 10*3/uL 130-400 Automated blood platelet mean volume measurement 10.0 [foz_us] 7.4-10.4 Automated blood neutrophils/100 leukocytes 87 % 42-75 Automated blood lymphocytes/100 leukocytes 9 % 12-44 Blood monocytes/100 leukocytes 4 % 0-12 Automated blood eosinophils/100 leukocytes 0 % 0-10 Automated blood basophils/100 leukocytes 0 % 0-10 Blood neutrophils automated count (number/volume) 14.7 10*3 1.8-7.8 Blood lymphocytes automated count (number/volume) 1.5 10*3 1.0-4.0 Blood monocytes automated count (number/volume) 0.7 10*3 0.0-1.0 Automated eosinophil count 0.0 10*3/uL 0.0-0.3 Automated blood basophil count (count/volume) 0.0 10*3/uL 0.0-0.1 PT panel in platelet poor plasma by coagulation assay - 09/29/17 13:30 Prothrombin time (PT) in platelet poor plasma by coagulation assay 13.8 s 12.2-14.7 INR in platelet poor plasma or blood by coagulation assay 1.1 0.8-1.4 Activated partial thromboplastin time (aPTT) in platelet poor plasma bycoagulation assay - 09/29/17 13:30 Activated partial thromboplastin time (aPTT) in platelet poor plasma bycoagulation assay 29 s 24-35 Blood lactic acid measurement (moles/volume) - 09/29/17 13:30 Blood lactic acid measurement (moles/volume) 0.94 mmol/L 0.50-2.00 Comprehensive metabolic panel - 09/29/17 13:30 Serum or plasma sodium measurement (moles/volume) 133 mmol/L 135-145 Serum or plasma potassium measurement (moles/volume) 4.5 mmol/L 3.6-5.0 Serum or plasma chloride measurement (moles/volume) 98 mmol/L 98-107 Carbon dioxide 24 mmol/L 21-32 Serum or plasma anion gap determination (moles/volume) 11 mmol/L 5-14 Serum or plasma urea nitrogen measurement (mass/volume) 14 mg/dL 7-18 Serum or plasma creatinine measurement (mass/volume) 0.89 mg/dL 0.60-1.30 Serum or plasma urea nitrogen/creatinine mass ratio 16 NRG Serum or plasma creatinine measurement with calculation of estimated glomerular filtration rate > NRG Serum or plasma glucose measurement (mass/volume) 126 mg/dL 70-105 Serum or plasma calcium measurement (mass/volume) 9.9 mg/dL 8.5-10.1 Serum or plasma total bilirubin measurement (mass/volume) 1.4 mg/dL 0.1-1.0 Serum or plasma alkaline phosphatase measurement (enzymatic activity/volume) 76 U/L 40-136 Serum or plasma aspartate aminotransferase measurement (enzymatic activity/ volume) 24 U/L 5-34 Serum or plasma alanine aminotransferase measurement (enzymatic activity/volume ) 15 U/L 0-55 Serum or plasma protein measurement (mass/volume) 8.0 g/dL 6.4-8.2 Serum or plasma albumin measurement (mass/volume) 3.7 g/dL 3.2-4.5 Serum or plasma creatine kinase measurement (enzymatic activity/volume) - 09/29 13:30 Serum or plasma creatine kinase measurement (enzymatic activity/volume) 134 U/L 29-168 Blood manual differential performed detection - 09/29/17 13:30 Blood monocytes/100 leukocytes 1 % NRG Manual blood segmented neutrophils/100 leukocytes 83 % NRG Blood band neutrophils/100 leukocytes 3 % NRG Manual blood lymphocytes/100 leukocytes 13 % NRG Manual eosinophils/100 leukocytes in nose 0 % NRG Manual blood basophils/100 leukocytes 0 % NRG Blood erythrocyte morphology finding identification NORMAL NRG Serum or plasma ethanol measurement (mass/volume) - 09/29/17 13:30 Serum or plasma ethanol measurement (mass/volume) < mg/dL <10 Bacterial blood culture - 09/29/17 13:30 FREE TEXT EXTERNAL SEE COMMENT NRG QUANTITY OF GROWTH Isolated [facility] Bacterial blood culture [id number] Bacterial blood culture - 09/29/17 13:45 Bacterial blood culture NG [facility] Blood lactic acid measurement (moles/volume) - 09/29/17 19:30 Blood lactic acid measurement (moles/volume) 3.54 mmol/L 0.50-2.00 Capillary blood glucose measurement by glucometer (mass/volume) - 09/29/17 21: 45 Capillary blood glucose measurement by glucometer (mass/volume) 213 mg/dL 70-110 Serum or plasma lactate measurement (moles/volume) - 09/29/17 22:00 Serum or plasma lactate measurement (moles/volume) 2.82 mmol/L 0.50-2.00 Blood lactic acid measurement (moles/volume) - 09/30/17 00:50 Blood lactic acid measurement (moles/volume) 1.02 mmol/L 0.50-2.00 Complete blood count (CBC) with automated white blood cell (WBC) differential - 09/30/17 06:00 Blood leukocytes automated count (number/volume) 5.3 10*3/uL 4.3-11.0 Blood erythrocytes automated count (number/volume) 3.37 10*6/uL 4.35-5.85 Venous blood hemoglobin measurement (mass/volume) 11.0 g/dL 11.5-16.0 Blood hematocrit (volume fraction) 34 % 35-52 Automated erythrocyte mean corpuscular volume 102 [foz_us] 80-99 Automated erythrocyte mean corpuscular hemoglobin (mass per erythrocyte) 33 pg 25-34 Automated erythrocyte mean corpuscular hemoglobin concentration measurement ( mass/volume) 32 g/dL 32-36 Automated erythrocyte distribution width ratio 13.5 % 10.0-14.5 Automated blood platelet count (count/volume) 170 10*3/uL 130-400 Automated blood platelet mean volume measurement 9.7 [foz_us] 7.4-10.4 Automated blood neutrophils/100 leukocytes 92 % 42-75 Automated blood lymphocytes/100 leukocytes 5 % 12-44 Blood monocytes/100 leukocytes 3 % 0-12 Automated blood eosinophils/100 leukocytes 0 % 0-10 Automated blood basophils/100 leukocytes 0 % 0-10 Blood neutrophils automated count (number/volume) 4.8 10*3 1.8-7.8 Blood lymphocytes automated count (number/volume) 0.3 10*3 1.0-4.0 Blood monocytes automated count (number/volume) 0.1 10*3 0.0-1.0 Automated eosinophil count 0.0 10*3/uL 0.0-0.3 Automated blood basophil count (count/volume) 0.0 10*3/uL 0.0-0.1 Comprehensive metabolic panel - 09/30/17 06:00 Serum or plasma sodium measurement (moles/volume) 137 mmol/L 135-145 Serum or plasma potassium measurement (moles/volume) 3.7 mmol/L 3.6-5.0 Serum or plasma chloride measurement (moles/volume) 108 mmol/L 98-107 Carbon dioxide 19 mmol/L 21-32 Serum or plasma anion gap determination (moles/volume) 10 mmol/L 5-14 Serum or plasma urea nitrogen measurement (mass/volume) 13 mg/dL 7-18 Serum or plasma creatinine measurement (mass/volume) 0.76 mg/dL 0.60-1.30 Serum or plasma urea nitrogen/creatinine mass ratio 17 NRG Serum or plasma creatinine measurement with calculation of estimated glomerular filtration rate > NRG Serum or plasma glucose measurement (mass/volume) 147 mg/dL 70-105 Serum or plasma calcium measurement (mass/volume) 8.1 mg/dL 8.5-10.1 Serum or plasma total bilirubin measurement (mass/volume) 0.6 mg/dL 0.1-1.0 Serum or plasma alkaline phosphatase measurement (enzymatic activity/volume) 63 U/L 40-136 Serum or plasma aspartate aminotransferase measurement (enzymatic activity/ volume) 15 U/L 5-34 Serum or plasma alanine aminotransferase measurement (enzymatic activity/volume ) 13 U/L 0-55 Serum or plasma protein measurement (mass/volume) 5.6 g/dL 6.4-8.2 Serum or plasma albumin measurement (mass/volume) 2.8 g/dL 3.2-4.5 Complete urinalysis with reflex to culture - 09/30/17 06:12 Urine color determination YELLOW NRG Urine clarity determination CLEAR NRG Urine pH measurement by test strip 5 5-9 Specific gravity of urine by test strip 1.015 1.016- 1.022 Urine protein assay by test strip, semi-quantitative 2+ NEGATIVE Urine glucose detection by automated test strip 1+ NEGATIVE Erythrocytes detection in urine sediment by light microscopy 1+ NEGATIVE Urine ketones detection by automated test strip 1+ NEGATIVE Urine nitrite detection by test strip NEGATIVE NEGATIVE Urine total bilirubin detection by test strip NEGATIVE NEGATIVE Urine urobilinogen measurement by automated test strip (mass/volume) NORMAL NORMAL Urine leukocyte esterase detection by dipstick NEGATIVE NEGATIVE Automated urine sediment erythrocyte count by microscopy (number/high power field) [HPF] NRG Automated urine sediment leukocyte count by microscopy (number/high power field ) RARE NRG Bacteria detection in urine sediment by light microscopy FEW NRG Squamous epithelial cells detection in urine sediment by light microscopy 2-5 NRG Crystals detection in urine sediment by light microscopy NONE NRG Casts detection in urine sediment by light microscopy NONE NRG Mucus detection in urine sediment by light microscopy SMALL NRG Complete urinalysis with reflex to culture NO NRG Complete blood count (CBC) with automated white blood cell (WBC) differential - 10/01/17 06:16 Blood leukocytes automated count (number/volume) 6.1 10*3/uL 4.3-11.0 Blood erythrocytes automated count (number/volume) 3.47 10*6/uL 4.35-5.85 Venous blood hemoglobin measurement (mass/volume) 11.2 g/dL 11.5-16.0 Blood hematocrit (volume fraction) 35 % 35-52 Automated erythrocyte mean corpuscular volume 101 [foz_us] 80-99 Automated erythrocyte mean corpuscular hemoglobin (mass per erythrocyte) 32 pg 25-34 Automated erythrocyte mean corpuscular hemoglobin concentration measurement ( mass/volume) 32 g/dL 32-36 Automated erythrocyte distribution width ratio 13.3 % 10.0-14.5 Automated blood platelet count (count/volume) 178 10*3/uL 130-400 Automated blood platelet mean volume measurement 10.0 [foz_us] 7.4-10.4 Automated blood neutrophils/100 leukocytes 92 % 42-75 Automated blood lymphocytes/100 leukocytes 5 % 12-44 Blood monocytes/100 leukocytes 3 % 0-12 Automated blood eosinophils/100 leukocytes 0 % 0-10 Automated blood basophils/100 leukocytes 0 % 0-10 Blood neutrophils automated count (number/volume) 5.6 10*3 1.8-7.8 Blood lymphocytes automated count (number/volume) 0.3 10*3 1.0-4.0 Blood monocytes automated count (number/volume) 0.2 10*3 0.0-1.0 Automated eosinophil count 0.0 10*3/uL 0.0-0.3 Automated blood basophil count (count/volume) 0.0 10*3/uL 0.0-0.1 Comprehensive metabolic panel - 10/01/17 06:16 Serum or plasma sodium measurement (moles/volume) 139 mmol/L 135-145 Serum or plasma potassium measurement (moles/volume) 3.5 mmol/L 3.6-5.0 Serum or plasma chloride measurement (moles/volume) 109 mmol/L 98-107 Carbon dioxide 21 mmol/L 21-32 Serum or plasma anion gap determination (moles/volume) 9 mmol/L 5-14 Serum or plasma urea nitrogen measurement (mass/volume) 10 mg/dL 7-18 Serum or plasma creatinine measurement (mass/volume) 0.73 mg/dL 0.60-1.30 Serum or plasma urea nitrogen/creatinine mass ratio 14 NRG Serum or plasma creatinine measurement with calculation of estimated glomerular filtration rate > NRG Serum or plasma glucose measurement (mass/volume) 148 mg/dL 70-105 Serum or plasma calcium measurement (mass/volume) 8.3 mg/dL 8.5-10.1 Serum or plasma total bilirubin measurement (mass/volume) 0.4 mg/dL 0.1-1.0 Serum or plasma alkaline phosphatase measurement (enzymatic activity/volume) 63 U/L 40-136 Serum or plasma aspartate aminotransferase measurement (enzymatic activity/ volume) 19 U/L 5-34 Serum or plasma alanine aminotransferase measurement (enzymatic activity/volume ) 13 U/L 0-55 Serum or plasma protein measurement (mass/volume) 5.7 g/dL 6.4-8.2 Serum or plasma albumin measurement (mass/volume) 2.9 g/dL 3.2-4.5 Encounters ACCT No. Visit Date/Time Discharge Status Pt. Type Provider Facility Loc./Unit Complaint [id number] 01/02/2017 13:47:00 01/02/2017 15:33:00 DIS Emergency LORNE HODGES [facility] ER L LEG DOG BITE [id number] 07/20/2015 15:20:00 07/22/2015 11:15:00 DIS Inpatient TIMBO RAY DO [facility] 4TH SEPSIS [id number] 05/29/2015 12:44:00 05/29/2015 23:59:59 CLS Outpatient FABY CASTANO MD [facility] CSDo PRE ANESTHESIA CLEARANCE [id number] 12/18/2014 16:30:00 12/18/2014 17:19:00 DIS Emergency EMILY LINDQUIST APRN [facility] ER L ANKLE PAIN/INJ [id number] 10/05/2013 10:49:00 10/05/2013 23:59:59 CLS Outpatient CHRIS GERARD MD [facility] RAD [id number] 12/27/2012 08:44:00 12/27/2012 12:01:00 DIS Emergency ERWIN SHEFFIELD, ANGELES Fox [facility] ER [id number] 11/26/2012 18:10:00 11/29/2012 10:15:00 DIS Inpatient CHRIS GERARD MD [facility] SURGICAL [id number] 11/08/2012 08:25:00 11/08/2012 12:30:00 DIS Outpatient BLUE JUAREZ MD [facility] [id number] 11/02/2012 07:23:00 11/02/2012 23:59:59 CLS Outpatient BLUE JUAREZ MD [facility] PREOP [id number] 09/29/2017 16:45:00 ACT Inpatient MADELINE MENDEZ MD [facility] 4TH SEPSIS,PNUEMONIA,COPD EXACERBATION [id number] 03/30/2011 10:42:00 Document Registration [id number] 02/13/2010 08:33:00 Document Registration [id number] 02/04/2010 10:50:00 Document Registration [id number] 10/28/2009 12:43:00 Document Registration
[2017-10-04] MEDS ORDERED: ACETAMINOPHEN 325 MG TABLET/CAPLET (TYLENOL) PO PRN (10:30)
[2017-10-04] MEDS ORDERED: LEVOFLOXACIN 750 MG TAB (LEVAQUIN) PO SCH (11:00)
--- NOTE | 2017-10-04 11:35 | Physical Therapy Evaluation ---
PT Evaluation-General Medical Diagnosis Admission Date October 04, 2017 at 09:58 Medical Diagnosis: Sepsis/pneumonia/COPD exacerbation Onset Date: September 29, 2017 Therapy Diagnosis Therapy Diagnosis: debility Height/Weight Height (Feet): 5 Height (Inches): 4.00 Weight (Pounds): 130 Weight (Ounces): 7.0 Precautions Precautions/Isolations: Standard Precautions Weight Bear Status Right Lower Extremity: Right Full Weight Bearing Left Lower Extremity: Left Full Weight Bearing Referral Physician: Humaira Reason for Referral: Evaluation/Treatment Medical History Pertinent Medical History: COPD, GERD, Neuropathy, Smoking Current History SWB status Reviewed History: Yes Social History Home: Single Level Current Living Status: Spouse Prior/Core FIM Prior Level of Function Functional [place] Measure 0=Not Assessed/NA 4=Minimal Assistance 1=Total Assistance 5=Supervision or Setup 2=Maximal Assistance 6=Modified [place] 3=Moderate Assistance 7=Complete [place] Bed Mobility: 7 Transfers (B,C,W/C) (FIM): 7 Gait: 7 Locomotion: 7 PT Evaluation-Current Subjective Patient agrees to PT. Pain Numeric Pain Scale: 0-No Pain Location: No Pain Reported Objective Patient Orientation: Normal For Age Problem Solving: Good Attachments: Oxygen ROM/Strength ROM Lower Extremities bilateral LE WNL Strenght Lower Extremities 4+/5 grossly bilaterally Integumentary/Posture Integumentary refer to nursing notes Bowel Incontinence: No Bladder Incontinence: No Posture WFL Neuromuscular (Tone, Coordination, Reflexes) grossly intact Sensory Vision: Functional Hearing: Functional Sensation Right Lower Extremit: Impaired Sensation Left Lower Extremity: Impaired Transfers Functional [place] Measure 0=Not Assessed/NA 4=Minimal Assistance 1=Total Assistance 5=Supervision or Setup 2=Maximal Assistance 6=Modified [place] 3=Moderate Assistance 7=Complete [place] Transfers (B, C, W/C) (FIM): 7 Scootin Rollin Supine to/from Sit: 7 Sit to/from Stand: 7 Sit to Lying (QC): 6 Lying to Sitting/Side of Bed(Q: 6 Sit to Stand (QC): 6 Chair/Wjo-nd-Zjfjj Xfer(QC): 6 Gait Does the Patient Walk?: Yes Mode of Locomotion: Walk Anticipated Mode of Locomotion: Walk Gait (FIM): 7 Distance (FIM): 3=150 ft Distance: >500' Walk 50 ft with 2 Turns(QC): 6 Walk 150 ft (QC): 6 Gait Level of Assist: 7 Gait Assistive Device: None Comments/Gait Description Spouse assist for O2 tank/safe and functional gait sequence by patient. Balance Sitting Static: Normal Sitting Dynamic: Normal Standing Static: Normal Standing Dynamic: Normal Assessment/Needs 72 y.o. female, is currently at independent OF with all gross motor skills safely and does not require skilled PT intervention at this time. Patient and spouse are compliant with ambulating PRN in hallway with O2 to improve pulmonary function. Rehab Potential: Fair PT Plan Treatment/Plan Treatment Plan: Discontinue PT, goals met Treatment Plan: Other Treatment Duration: October 04, 2017 Frequency: 1 time per week Estimated Hrs Per Day: .25 hour per day Patient and/or Family Agrees t: Yes Time/GCodes Time In: 1110 Time Out: 1125 Total Billed Treatment Time: 15 Total Billed Treatment 1 visit EVLowC 15 min ILIR CÁRDENAS PT October 04, 2017 11:35
[2017-10-04] MEDS: GABAPENTIN 300 MG (NEURONTIN) CAP PO SCH ×4 (12:44→21:18)
[2017-10-04] MEDS: DIPHENOXYLATE/ATROPINE 2.5MG/0.025MG (LOMOTIL) TAB PO SCH ×3 (12:48→21:15)
[2017-10-04] MEDS: oxyCODONE/APAP 5/325MG (PERCOCET 5) TABLET PO PRN ×2 (12:49→19:39)
--- NOTE | 2017-10-04 14:18 | Occupational Therapy Eval ---
OT Evaluation-General/PLF Medical Diagnosis Admission Date October 04, 2017 at 09:58 Medical Diagnosis: Sepsis/pneumonia/COPD exacerbation Onset Date: September 29, 2017 Therapy Diagnosis Therapy Diagnosis: debility Height/Weight Height (Feet): 5 Height (Inches): 4.00 Weight (Pounds): 130 Weight (Ounces): 7.0 Precautions Precautions/Isolations: Standard Precautions Referral Physician: Humaira Medical History Pertinent Medical History: COPD, GERD, Neuropathy, Smoking Additional Medical History high cholesterol, TIA, House's esophagus, DDD, fibromyalgia, chronic back pain , sleep difficulties, depression Reviewed History: Yes Social History Home: Single Level Current Living Status: Spouse Entry Into Home: Stairs With Railing Steps Into Home: 3 ADL-Prior Level of Function ADL PLOF Comments Pt reports being independent with basic self care and mobility. Does not use any assistive devices. 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 Pt states she hasn't been leaving home much recently secondary to diarrhea. DME/Equipment: Bath Chair, Shower, Tall Toilet, Tub/Shower Drive Self: Yes OT Current Status Subjective Pt sitting up in bed, agrees to therapy. Pt reports 8/10 generalized pain. Mental Status/Objective Patient Orientation: Person, Place, Situation Attachments: Oxygen Current Glasses/Contacts: Yes Hearing Aids: No Dentures/Partials: Yes Hand Dominance: Right Upper Extremity ROM Grossly WFL Upper Extremity Coordination Intact Upper Extremity Sensation Pt reports occasional numbness in hands and feet secondary to neuropathy. Upper Extremity Strength Grossly WFL ADL-Treatment ADL-Current Pt has just finished eating lunch, states she was able to feed herself without assistance. Supine to sit independently. Pt demonstrates ability to doff/don socks independently. Sit to stand independently. Gait to restroom without AD, no LOB noted. Pt demonstrates ability to perform toilet transfer with modified independence. Pt states she has already showered and groomed without assistance today. Pt states she gets up to restroom independently and has been walking in the hallway with spouse. Pt states she does not feel she is having any issues with ADL completion. Education provided regarding ADLs and safety. Pt states understanding and has no questions or concerns. Pt sitting in bed with needs met, spouse and grandson present after session. Functional [place] Measure 0=Not Assessed/NA 4=Minimal Assistance 1=Total Assistance 5=Supervision or Setup 2=Maximal Assistance 6=Modified [place] 3=Moderate Assistance 7=Complete IndependenceIRFPAI Quality Coding Scale 6 Independent with activity with or without an assistive device 5 Patient requires set up or clean up by helper. Patient completes activity by themselves 4 Supervision or touching assist (CGA). Howells provide cues , steadying assist 3 The helper provides less than half the effort to complete the activity 2 The helper provides more than half the effort to complete the activity 1 Dependent. The helper does all the effort to complete an activity 7 Patient refused to complete or attempt activity 9 The patient did not perform the activity before the current illness or injury 88 Not attempted due to Medical conditions or safety concerns Eating (FIM): 6 (by report) Eating (QC): 6 Grooming (FIM): 6 (by report) Oral Hygiene (QC): 6 Lower Body Dressing (FIM): 6 Toileting (FIM): 6 (by report) Toileting Hygiene (QC): 6 Toilet/Commode Transfer (FIM): 6 Education OT Patient Education: Safety issues Teaching Recipient: Patient Teaching Methods: Discussion Response to Teaching: Verbalize Understanding OT Education/Plan Problem List/Assessment Assessment: No Skilled OT Needs ID'd Pt admitted secondary to sepsis/pneumonia/COPD exacerbation. Pt demonstrates strength WFL. Pt demonstrates ability to perform basic self care and mobility with modified independence. Pt reports being up ad george in her room and states she is having no difficulty with ADL completion. No skilled OT intervention indicated at this time. D/C OT Discharge Recommendations Plan/Recommendations: Discontinue OT Treatment Plan/Plan of Care Treatment,Training & Education: No Treatment Duration: October 04, 2017 Frequency: 1 time per week Estimated Hrs Per Day: Other Rehab Potential: Fair Time/GCodes Start Time: 13:21 Stop Time: 13:39 Total Time Billed (hr/min): 18 Billed Treatment Time 1 visit, SHANAE(18minutes) AYAN GARRISON OT October 04, 2017 14:18
[2017-10-04] MEDS: RT-ALBUTEROL/IPRATROPIUM 3 ML (DUONEB) VIAL INH SCH ×3 (14:39→22:19)
[2017-10-04 18:00] VITALS: BP 121/66
[2017-10-04] MEDS ORDERED: TEMAZEPAM 15 MG (RESTORIL) CAP PO SCH (21:00)
[2017-10-04] MEDS ORDERED: MELATONIN 3 MG TABLET PO SCH (21:00)
[2017-10-04] MEDS: KCL 10 MEQ TAB (MICRO K) PO SCH (21:15)
[2017-10-04] MEDS: methylPREDNISolone 40 MG/ML (Solu-MEDROL) VIAL IV SCH (21:15)
[2017-10-05] MEDS: RT-ALBUTEROL/IPRATROPIUM 3 ML (DUONEB) VIAL INH SCH ×3 (02:19→10:18)
[2017-10-05] MEDS: GABAPENTIN 300 MG (NEURONTIN) CAP PO SCH ×3 (02:53→09:30)
[2017-10-05] MEDS: oxyCODONE/APAP 5/325MG (PERCOCET 5) TABLET PO PRN ×2 (03:31→09:34)
[2017-10-05 06:00] VITALS: BP 107/56
--- NOTE | 2017-10-05 06:57 | Pulmonary Progress Note ---
Subjective Time Seen by Provider: 07:55 Subjective/Events-last exam pt requiring high flow 02 Exam Exam Vital Signs Date Time Temp Pulse Resp B/P (MAP) Pulse Ox O2 Delivery O2 Flow Rate FiO2 10/05/17 06:18 88 Nasal Cannula 7.00 10/05/17 06:00 97.9 99 17 107/56 (73) 89 High Flow N/C 7.00 10/04/17 22:21 95 Nasal Cannula 4.00 10/04/17 21:00 Nasal Cannula 4.00 10/04/17 18:32 88 Nasal Cannula 4.00 10/04/17 18:00 98.1 104 20 121/66 (84) 91 High Flow N/C 10/04/17 16:00 91 Nasal Cannula 6.00 10/04/17 14:47 6.00 10/04/17 14:39 93 Nasal Cannula 10.00 10/04/17 11:23 92 Nasal Cannula 10.00 I & O 10/05/17 07:00 Intake Total 940 ml Output Total 1700 ml Balance -760 ml General Appearance: Anxious, Moderate Distress HEENT: PERRL/EOMI, Normal ENT Inspection Neck: Full Range of Motion, Non Tender, Supple Respiratory: Decreased Breath Sounds, Respiratory Distress Cardiovascular: Regular Rate, Rhythm, No Edema, No Gallop, Irregularly Irregular Gastrointestinal: normal bowel sounds, non tender, no organomegaly, no pulsatile mass Extremity: Normal Capillary Refill Neurologic/Psychiatric: Alert Skin: Normal Color, Warm/Dry Assessment/Plan Assessment/Plan Sepsis - resolved PNeumonia - improving Pulmonary edema with pleural effusions -Check BNP , Hep lock IVF -restart home spironolactone -wean oxygen as tolerated Lung Mass r/o cancer -Pt will need follow up CT scan in 6-8 wks after discharge. 45min spent with patient, medical staff discussing patients care. She is currently requiring 8 l/min of oxygen. I called Rosalie at [facility] to ensure we can provide enough oxygen in home setting. I have also d/w Dr. Gerardo patients care and plan. EMPERATRIZ CHAN DO October 05, 2017 06:57
[2017-10-05] MEDS ORDERED: KCL 20 MEQ TAB (K-DUR) PO NR (07:00)
[2017-10-05] MEDS ORDERED: FUROSEMIDE 40 MG/4 ML INJ (LASIX) IVP NR (07:00)
[2017-10-05] MEDS ORDERED: MULTIVIT W/MINERALS TAB (THERAGRAN M) PO SCH (07:00)
[2017-10-05] MEDS ORDERED: FOLIC ACID 1 MG TAB PO SCH (07:00)
[2017-10-05] MEDS ORDERED: PANTOPRAZOLE 40 MG (PROTONIX) TAB PO SCH (07:00)
[2017-10-05] MEDS ORDERED: SPIRONOLACTONE 25 MG (ALDACTONE) TAB PO SCH (09:00)
[2017-10-05] MEDS: KCL 10 MEQ TAB (MICRO K) PO SCH (09:29)
[2017-10-05] MEDS: DIPHENOXYLATE/ATROPINE 2.5MG/0.025MG (LOMOTIL) TAB PO SCH (09:30)
[2017-10-05] MEDS: methylPREDNISolone 40 MG/ML (Solu-MEDROL) VIAL IV SCH (09:30)
[2017-10-05] MEDS ORDERED: DIPH1TAB25 PO (10:35)
[2017-10-05] MEDS ORDERED: ACET1TAB45 PO (10:35)
[2017-10-05] MEDS ORDERED: IPRA3AMP INH (10:35)
[2017-10-05] MEDS ORDERED: OXYC-471 PO (10:35)
[2017-10-05] MEDS ORDERED: PRED10TA22 PO (10:35)
[2017-10-05] MEDS ORDERED: ALPR0.254 PO (10:35)
[2017-10-05] MEDS ORDERED: LEVOFLOXACIN 750 MG TAB (LEVAQUIN) PO SCH (11:00)
--- NOTE | 2017-10-05 11:55 | Discharge Summary-Hospitalist ---
Diagnosis/Chief Complaint Date of Admission October 04, 2017 at 09:58 Date of Discharge Discharge Date: October 05, 2017 Discharge Diagnosis (1) RESPIRATORY FAILURE, UNSP, UNSP W HYPOXIA OR HYPERCAPNIA Status: Chronic (2) Poor prognosis Status: Chronic (3) Debility Status: Chronic (4) Chronic pain Status: Chronic (5) Chronic diarrhea Status: Chronic (6) Neuropathy Status: Chronic (7) Alcoholism Status: Chronic Discharge Summary Discharge Physical Exam Allergies: Coded Allergies: Penicillins (Verified Allergy, Unknown, 10/04/17) Vitals & I&Os Vital Signs Date Time Temp Pulse Resp B/P (MAP) Pulse Ox O2 Delivery O2 Flow Rate FiO2 10/05/17 10:18 92 Nasal Cannula 7.00 10/05/17 06:00 97.9 99 17 107/56 (73) General Appearance: Alert, Oriented X3, Cooperative Respiratory: Clear to Auscultation, Normal Air Movement Neuro: Normal Gait, Normal Speech, Strength at 5/5 X4 Ext Psych/Mental Status: Mental Status NL, Mood NL Hospital Course Hospital course: Patient had a very short swing bed hospital course when she was still requiring high levels of oxygen but Dr. Cornelius was consulted and evaluated the case and found that DME could provide up to 10 L of oxygen supplementation and that order was placed. She was prescribed Lomotil of 2 tabs every 6 hours that has helped her chronic diarrhea and she will be seen in close follow-up. Chronic pain issues discussed and CT scan with the left lung mass will be repeated in 2-3 weeks' time to evaluate the need for further evaluation of the source of the mass. Overall prognosis poor but she was able to ambulate and felt ready to go home. Labs (last 24 hrs) Patient resulted labs reviewed. Discussion & Recommendations Discharge Planning: >30 minutes discharge planning Discharge Home Medications: Active Scripts Active Prednisone 10 Mg Tab.ds.pk 10 Mg PO DAILY Take 6 tabs(60mg)daily,decrease by 1 tab(10MG)daily. Alprazolam 0.25 Mg Tablet 0.25 Mg PO Q8H PRN Oxycodone-Acetaminophen 5-325 (Oxycodone HCl/Acetaminophen) 1 Each Tablet 1 Tab PO BID PRN Iprat-Albut 0.5-3(2.5) mg/3 ml (Ipratropium/Albuterol Sulfate) 3 Ml Ampul.neb 3 Ml INH RTQ2H PRN Diphenoxylate-Atrop 2.5-0.025 (Diphenoxylate HCl/Atropine) 1 Each Tablet 2 Each PO Q6H Acetaminophen-Cod #4 Tablet (Acetaminophen with Codeine) 1 Each Tablet 1-2 Tab PO Q6H PRN Reported Probiotic (L.acidoph & Paracasei,B.lactis) 1 Each Capsule 1 Each PO DAILY Biotin 5,000 Mcg Tab.rapdis 5,000 Mcg PO DAILY Spironolactone 50 Mg Tablet 50 Mg PO DAILY Gabapentin 300 Mg Capsule 600 Mg PO Q4H Temazepam 30 Mg Capsule 30 Mg PO HS Protonix Tab (Pantoprazole Sod) 40 Mg Tab 40 Mg PO DAILY Instructions to patient/family Please see electronic discharge instructions given to patient. Clinical Quality Measures DVT/VTE Risk/Contraindication: Risk Factor Score Per Nursin Problem Qualifiers (1) Chronic pain: Chronic pain type: chronic pain syndrome Qualified Codes: G89.4 - Chronic pain syndrome TIMBO RAY DO October 05, 2017 11:54
== END 2017-10-05 12:56 | disposition home or self-care (01) | DRG 189 ==
LOC: 4TH 09:58
PROVIDERS: ADMIT Internal Medicine; ATTEND Internal Medicine
DX: J96.90 Respiratory failure, unspecified, unspecified whether with hypoxia or hypercapnia (principal); J18.9 Pneumonia, unspecified organism; J44.0 Chronic obstructive pulmonary disease with (acute) lower respiratory infection; J44.1 Chronic obstructive pulmonary disease with (acute) exacerbation; J81.1 Chronic pulmonary edema; J90 Pleural effusion, not elsewhere classified; R91.8 Other nonspecific abnormal finding of lung field; G89.4 Chronic pain syndrome
CPT/HCPCS: 94640; 94761

== ENCOUNTER 2017-10-20 12:56 | Inpatient (IN) | payer MEDICARE, OTHER ==
[2017-10-20] VITALS (17 sets, daily range): BP systolic 82–154; BP diastolic 43–93
[~2017-10-20] VITALS: Ht 165.1 cm; Wt 69.7 kg
[~2017-10-20 12:56] MED LIST changes: +ALPR0.254 PO; +IPRA3AMP INH; +OXYC-471 PO; +PRED10TA22 PO
[2017-10-20] MEDS ORDERED: ACETAMINOPHEN 325 MG TABLET/CAPLET (TYLENOL) PO STA (13:08)
[2017-10-20] MEDS ORDERED: RT-ALBUTEROL SULF 2.5 MG/3 ML PRE-MIX VIAL ONE (13:20)
[2017-10-20 13:23] LABS: BASOPHILS % (AUTO) 0 % (0-10); EOSINOPHILS % (AUTO) 0 % (0-10); HEMATOCRIT 34 % (35-52); HEMOGLOBIN 10.7 G/DL (11.5-16.0); LYMPHOCYTES % (AUTO) 7 % (12-44); MEAN CORPUSCULAR HEMOGLOBIN 32 PG (25-34); MEAN CORPUSCULAR HGB CONC 32 G/DL (32-36); MEAN CORPUSCULAR VOLUME 101 FL (80-99); MONOCYTES # (AUTO) 1.1 X 10^3 (0.0-1.0); MONOCYTES % (AUTO) 8 % (0-12); NEUTROPHILS # (AUTO) 11.1 X 10^3 (1.8-7.8); NEUTROPHILS % (AUTO) 84 % (42-75); PLATELET COUNT 318 10^3/uL (130-400); RED BLOOD COUNT 3.34 10^6/uL (4.35-5.85); RED CELL DISTRIBUTION WIDTH 13.5 % (10.0-14.5); WHITE BLOOD COUNT 13.2 10^3/uL (4.3-11.0)
[2017-10-20 13:42] LABS: INR 1.1 (0.8-1.4); PROTHROMBIN TIME PATIENT 14.1 SEC (12.2-14.7)
[2017-10-20 13:48] LABS: ALANINE AMINOTRANSFERASE 17 U/L (0-55); ALKALINE PHOSPHATASE 59 U/L (40-136); BAND NEUTROPHILS 2 %; BASOPHILS % (MANUAL) 0 %; BILIRUBIN,TOTAL 0.7 MG/DL (0.1-1.0); BUN/CREATININE RATIO 13; CALCIUM 10.1 MG/DL (8.5-10.1); CARBON DIOXIDE 27 MMOL/L (21-32); CHLORIDE 102 MMOL/L (98-107); CREATININE SERUM 0.83 MG/DL (0.60-1.30); EOSINOPHILS % (MANUAL) 0 %; GFR ESTIMATED > 60; GLUCOSE 105 MG/DL (70-105); HYPOCHROMASIA SLIGHT; LYMPHOCYTES % (MANUAL) 11 %; MONOCYTES % (MANUAL) 7 %; NEUTROPHILS % (MANUAL) 80 %; POTASSIUM 4.4 MMOL/L (3.6-5.0); SODIUM 141 MMOL/L (135-145); TOTAL PROTEIN 6.1 GM/DL (6.4-8.2)
--- NOTE | 2017-10-20 13:52 | ED General ---
General Chief Complaint: Fever-Adult/Adol Stated Complaint: FALL/FEVER Nursing Triage Note: TO ROOM PER EMS WAS DISCHARGED X2 DAYS AGO. FROM HOSPITAL WITH DX OF PNEUMONIA. WAS FOUND ON FLOOR BY FAMILY. Nursing Sepsis Screen: No Definite Risk Source of Information: Patient Exam Limitations: No Limitations (FAWAD MARTIN MD) History of Present Illness Date Seen by Provider: October 20, 2017 Time Seen by Provider: 13:07 Initial Comments Here with report of fever, weakness and shortness of breath. Apparently fell last night because of weakness and was on the floor for quite a while before found her and got her back up into bed. EMS was summoned as she had a fever. Fever 102.7 per EMS. Patient just discharged 2 days ago for pneumonia on the right. She is currently on 8 L oxygen via nasal cannula and reports shortness of air. She apparently had been on even higher flow in the hospital. Reports taking her meds as directed. Is feeling progressively increasingly weak. She does follow as Jehovah witness and states that she does not want any blood. It was later determined that the patient was not discharged 2 days ago but rather 2 weeks ago. Timing/Duration: 1-2 Days, Getting Worse Severity: Moderate, Severe Associated Systoms: No Chest Pain; Cough, Fever/Chills; No Nausea/Vomiting; Shortness of Air, Weakness (FAWAD MARTIN MD) Allergies and Home Medications Allergies Coded Allergies: Penicillins (Verified Allergy, Unknown, 10/04/17) Home Medications Acetaminophen with Codeine 1 Each Tablet, 1-2 TAB PO Q6H PRN for PAIN Prescribed by: TIMBO RAY on 10/05/17 1035 Alprazolam 0.25 Mg Tablet, 0.25 MG PO Q8H PRN for ANXIETY Prescribed by: TIMBO RAY on 10/05/17 1035 Biotin 5,000 Mcg Tab.rapdis, 5,000 MCG PO DAILY, (Reported) Diphenoxylate HCl/Atropine 1 Each Tablet, 2 EACH PO Q6H Prescribed by: TIMBO RAY on 10/05/17 1035 Gabapentin 300 Mg Capsule, 600 MG PO Q4H, (Reported) Ipratropium/Albuterol Sulfate 3 Ml Ampul.neb, 3 ML INH RTQ2H PRN for SOA Prescribed by: TIMBO RAY on 10/05/17 1035 L.acidoph & Paracasei,B.lactis 1 Each Capsule, 1 EACH PO DAILY, (Reported) Oxycodone HCl/Acetaminophen 1 Each Tablet, 1 TAB PO BID PRN for PAIN-MODERATE Prescribed by: TIMBO RAY on 10/05/17 1035 Pantoprazole Sod 40 Mg Tab, 40 MG PO DAILY, (Reported) Prednisone 10 Mg Tab.ds.pk, 10 MG PO DAILY Take 6 tabs(60mg)daily,decrease by 1 tab(10MG)daily. Prescribed by: TIMBO RAY on 10/05/17 1035 Spironolactone 50 Mg Tablet, 50 MG PO DAILY, (Reported) Temazepam 30 Mg Capsule, 30 MG PO HS, (Reported) Patient Home Medication List Home Medication List Reviewed: Yes (FAWAD MARTIN MD) Home Medication List Reviewed: Yes (EMILY MATTHEWS APRN) Review of Systems Constitutional: see HPI, chills, fever, weakness EENTM: no symptoms reported Respiratory: cough, short of breath, wheezing Cardiovascular: No chest pain; palpitations Gastrointestinal: No abdominal pain; nausea; No vomiting Genitourinary: no symptoms reported Musculoskeletal: no symptoms reported Skin: no symptoms reported (FAWAD MARTIN MD) All Other Systems Reviewed Negative Unless Noted: Yes (FAWAD MARTIN MD) Past Vzxgabf-Mialse-Dklhic Hx Past Med/Social Hx: Reviewed Nursing Past Med/Soc Hx (FAWAD MARTIN MD) Patient Social History Alcohol Use: Denies Use Recreational Drug Use: No Type Used: Cigarettes Former Smoker, Quit: September 29, 2010 Recent Foreign Travel: No Contact w/Someone Who Travel: No Recent Infectious Disease Expo: No Recent Hopitalizations: No (FAWAD MARTIN MD) Immunizations Up To Date Tetanus Booster (TDap): Unknown PED Vaccines UTD: Yes (FAWAD MARTIN MD) Seasonal Allergies Seasonal Allergies: Yes (FAWAD MARTIN MD) Past Medical History Surgeries: Yes (EGD/COLONOSCOPY, back surgery) Eye Surgery Respiratory: Yes Asthma, COPD Currently Using CPAP: No Currently Using BIPAP: No Cardiac: No High Cholesterol Neurological: Yes (spinal stenosis) TIA Reproductive Disorders: No Genitourinary: No Gastrointestinal: Yes (H. PYLORI) Gastroesophageal Reflux, House's Esophagus, Ulcer Musculoskeletal: Yes (spinal stenosis) Degenerate Disk Disease, Fibromyalgia, Chronic Back Pain Endocrine: No HEENT: Yes Cataract Loss of Vision: Denies Hearing Impairment: Denies Cancer: No Psychosocial: Yes Sleep Difficulties, Depression Integumentary: No Blood Disorders: No (FAWAD MARTIN MD) Family Medical History Reviewed Nursing Family Hx (FAWAD MARTIN MD) Abdominal aortic aneurysm 19 MOTHER Alonso's disease Arthritis 19 MOTHER Asthma 19 FATHER (GRANDFATHER) Cataracts 19 MOTHER Deafness or hearing loss 19 FATHER Glaucoma 19 MOTHER Headache disorder 19 MOTHER Hypertension (FAWAD MARTIN MD) Physical Exam-Suspected Sepsis Physical Exam Vital Signs Vital Signs - First Documented 10/20/17 10/20/17 13:00 13:32 Temp 100.0 Resp 20 B/P (MAP) 117/71 (86) Pulse Ox 9 O2 Delivery Nasal Cannula O2 Flow Rate 8.00 FiO2 60 (EMILY MATTHEWS APRN) Vital Signs Capillary Refill : Less Than 3 Seconds (FAWAD MARTIN MD) Blood Pressure Mean: 86 General Appearance: Chronically ill, Moderate Distress HEENT: PERRL/EOMI, Pharynx Normal Neck: Non Tender, Supple Respiratory: Decreased Breath Sounds, Respiratory Distress, Wheezing (right upper lobe bilateral bases) Cardiovascular: No Murmur, Tachycardia Gastrointestinal: Normal Bowel Sounds, Non Tender, Soft Back: Normal Inspection, No CVA Tenderness, No Vertebral Tenderness Extremity: Normal Range of Motion, Non Tender Neurologic/Psychiatric: Alert, Oriented x3 Skin: normal color, warm/dry (FAWAD MARTIN MD) Focused Exam Sepsis Stage: Septic Shock Possible Source: Pulmonary Lactate Level 10/20/17 13:08: Lactic Acid Level 1.07 (EMILY MATTHEWS APRN) Time of Focused Exam: 15:52 Respiratory: No Respiratory Distress, Other (vapotherm still in place) Cardiovascular: Tachycardia Capillary Refill: Less Than 3 Seconds (at 3 seconds) Skin: normal color Lactic Acid Level Laboratory Tests Test 10/20/17 13:08 Lactic Acid Level 1.07 MMOL/L (0.50-2.00) (EMILY MATTHEWS APRN) Procedures/Interventions Lumen: triple Central Line Procedure: betadine prep, sterile drapes applied, sterile dressing applied Position: internal jugular (R) Anesthesia: local Volume Anesthetic (ccs): 5 Complications: none Post Position: sutured, good blood return, position confirmed w/ CXR (EMILY MATTHEWS APRN) Progress/Results/Core Measures Suspected Sepsis Recent Fever Within 48 Hours: Yes Infection Criteria Present: Suspected New Infection New/Unexplained Altered Menta: No Sepsis Screen: No Definite Risk SIRS Temperature:100.0 Pulse: Respiratory Rate: 20 Laboratory Tests 10/20/17 13:08: White Blood Count 13.2H Blood Pressure 117 /71 Mean: 86 10/20/17 13:08: Lactic Acid Level 1.07 Laboratory Tests 10/20/17 13:08: Creatinine 0.83, INR Comment 1.1, Platelet Count 318, Total Bilirubin 0.7 (FAWAD MARTIN MD) Results/Orders Lab Results Laboratory Tests Test 10/20/17 13:08 10/20/17 14:00 Range/Units White Blood Count 13.2 H 4.3-11.0 10^3/uL Red Blood Count 3.34 L 4.35-5.85 10^6/uL Hemoglobin 10.7 L 11.5-16.0 G/DL Hematocrit 34 L 35-52 % Mean Corpuscular Volume 101 H 80-99 FL Mean Corpuscular Hemoglobin 32 25-34 PG Mean Corpuscular Hemoglobin Concent 32 32-36 G/DL Red Cell Distribution Width 13.5 10.0-14.5 % Platelet Count 318 130-400 10^3/uL Mean Platelet Volume 10.0 7.4-10.4 FL Neutrophils (%) (Auto) 84 H 42-75 % Lymphocytes (%) (Auto) 7 L 12-44 % Monocytes (%) (Auto) 8 0-12 % Eosinophils (%) (Auto) 0 0-10 % Basophils (%) (Auto) 0 0-10 % Neutrophils # (Auto) 11.1 H 1.8-7.8 X 10^3 Lymphocytes # (Auto) 1.0 1.0-4.0 X 10^3 Monocytes # (Auto) 1.1 H 0.0-1.0 X 10^3 Eosinophils # (Auto) 0.0 0.0-0.3 10^3/uL Basophils # (Auto) 0.0 0.0-0.1 10^3/uL Neutrophils % (Manual) 80 % Lymphocytes % (Manual) 11 % Monocytes % (Manual) 7 % Eosinophils % (Manual) 0 % Basophils % (Manual) 0 % Band Neutrophils 2 % Hypochromasia SLIGHT Macrocytosis SLIGHT Prothrombin Time 14.1 12.2-14.7 SEC INR Comment 1.1 0.8-1.4 Activated Partial Thromboplast Time 30 24-35 SEC Sodium Level 141 135-145 MMOL/L Potassium Level 4.4 3.6-5.0 MMOL/L Chloride Level 102 98-107 MMOL/L Carbon Dioxide Level 27 21-32 MMOL/L Anion Gap 12 5-14 MMOL/L Blood Urea Nitrogen 11 7-18 MG/DL Creatinine 0.83 0.60-1.30 MG/DL Estimat Glomerular Filtration Rate > 60 BUN/Creatinine Ratio 13 Glucose Level 105 70-105 MG/DL Lactic Acid Level 1.07 0.50-2.00 MMOL/L Calcium Level 10.1 8.5-10.1 MG/DL Total Bilirubin 0.7 0.1-1.0 MG/DL Aspartate Amino Transf (AST/SGOT) 22 5-34 U/L Alanine Aminotransferase (ALT/SGPT) 17 0-55 U/L Alkaline Phosphatase 59 40-136 U/L Total Protein 6.1 L 6.4-8.2 GM/DL Albumin 3.0 L 3.2-4.5 GM/DL Urine Color YELLOW Urine Clarity CLEAR Urine pH 6 5-9 Urine Specific [place] 1.010 L 1.016-1.022 Urine Protein 1+ H NEGATIVE Urine Glucose (UA) NEGATIVE NEGATIVE Urine Ketones NEGATIVE NEGATIVE Urine Nitrite NEGATIVE NEGATIVE Urine Bilirubin NEGATIVE NEGATIVE Urine Urobilinogen NORMAL NORMAL MG/DL Urine Leukocyte Esterase 3+ H NEGATIVE Urine RBC (Auto) 3+ H NEGATIVE Urine RBC 2-5 H /HPF Urine WBC 5-10 H /HPF Urine Squamous Epithelial Cells 10-25 H /HPF Urine Crystals NONE /LPF Urine Bacteria MODERATE H /HPF Urine Casts NONE /LPF Urine Mucus NEGATIVE /LPF Urine Yeast FEW H /HPF Urine Culture Indicated YES (EMILY MATTHEWS APRN) My Orders Orders - EMILY MATTHEWS APRN Chest 1 View, Ap/Pa Only (10/20/17 15:37) (EMILY MATTHEWS APRN) Medications Given in ED Current Medications Medications Dose Ordered Sig/C[place]ilia Route Start Time Stop Time Status Last Admin Dose Admin Albuterol Sulfate 2.5 mg STK-MED ONCE .ROUTE 10/20/17 13:20 10/20/17 13:26 DC 10/20/17 13:32 5 MG Meropenem 500 mg/ Sodium Chloride 100 ml @ 200 mls/hr ONCE ONCE IV 10/20/17 15:00 10/20/17 15:29 DC 10/20/17 15:48 200 MLS/HR Sodium Chloride 1,000 ml @ 0 mls/hr Q0M ONCE IV 10/20/17 14:55 10/20/17 14:56 DC 10/20/17 15:05 1,000 MLS/HR (EMILY MATTHEWS APRN) Vital Signs/I&O 10/20/17 10/20/17 10/20/17 13:00 13:32 14:26 Temp 100.0 Resp 20 B/P (MAP) 117/71 (86) Pulse Ox 9 94 O2 Delivery Nasal Cannula Vapotherm Vapotherm O2 Flow Rate 8.00 20.00 20.00 FiO2 60 60 (EMILY MATTHEWS APRN) Vital Signs/I&O Capillary Refill : Less Than 3 Seconds (FAWAD MARTIN MD) Blood Pressure Mean: 86 Progress Note : Progress Note Seen and evaluated. IV 2 by EMS with normal saline 1 L bolus to each IV that is currently running. Labs, blood cultures, lactic acid, x-ray and UA ordered. Patient switched to Vapo-therm therapy and albuterol neb 2 ordered. Monitor patient. Improved overall. 1500: Patient has had several blood pressures in the range of 80s systolic. In the setting of the left upper lobe pneumonia, there is concerns about severe sepsis. She has nearly 2 L of fluid complete currently. We will order an additional liter of normal saline which will exceed the 30 mL/kg bolus requirement and also initiate central line for pressors if indicated. I discussed the case with Dr. Ray at 1450 and she accepts patient for admission and request consult with Dr. Cornelius. I did discuss the case with him at 1455 and he agrees and agrees with central line placement as well. Admit, inpatient status. Patient agrees with plan. Central line be placed by Emily Matthews APRN via ultrasound guidance. (FAWAD MARTIN MD) Diagnostic Imaging Diagonstic Imaging: Xray Plain Films/CT/US/NM/MRI: chest Comments VIA [facility], [facility]. [place], [place] NAME: JB VANG [facility] REC#: [id number] PT STATUS: REG ER : 1945 PHYSICIAN: FAWAD MARTIN MD ADMIT DATE: 10/20/17/ER Draft Date of Exam:10/20/17 CHEST 1 VIEW, AP/PA ONLY INDICATION: History of pneumonia. Found down. COMPARISON: 10/01/2017 FINDINGS: Single frontal radiographic view of the chest was obtained and demonstrates interval development of increased interstitial thickening with scattered patchy and confluent alveolar infiltrates within the left lung. There is some relative sparing of the far inferior and apical regions of the left lung. Right lung is relatively clear. No large effusion or pneumothorax is seen on either side. Cardiac silhouette and pulmonary vasculature are stable. Bony structures show no gross acute abnormalities. IMPRESSION: 1. Interval development of left lung infiltrates consistent with pneumonia. Followup is recommended. Dictated on workstation # [id number] Dict: 10/20/17 1415 Trans: 10/20/17 1420 [facility] [id number] Interpreted by: JUDY QUISPE MD Electronically signed by: (FAWAD MARTIN MD) Departure Impression Primary Impression: Pneumonia Qualified Codes: J18.1 - Lobar pneumonia, unspecified organism Additional Impression: Severe sepsis Disposition: ADMITTED INPATIENT Condition: Critical Admissions Decision to Admit Reason: Admit from ER (General) Decision to Admit/Date: October 20, 2017 Time/Decision to Admit Time: 15:53 (EMILY MATTHEWS APRN) Departure-Patient Inst. Referrals: TIBMO RAY DO (PCP/Family) Primary Care Physician FAWAD MARTIN MD October 20, 2017 13:52 EMILY MATTHEWS APRN October 20, 2017 15:30
[2017-10-20 14:04] LABS: BILIRUBIN,URINE NEGATIVE (NEGATIVE); CLARITY,URINE CLEAR; COLOR,URINE YELLOW; GLUCOSE, URINE (UA) NEGATIVE (NEGATIVE); KETONES,URINE NEGATIVE (NEGATIVE); LEUKOCYTE ESTERASE ,URINE 3+ (NEGATIVE); NITRITE,URINE NEGATIVE (NEGATIVE); PH,URINE 6 (5-9); PROTEIN,URINE 1+ (NEGATIVE); UROBILINOGEN,URINE NORMAL (NORMAL)
[2017-10-20 14:13] LABS: BACTERIA,URINE MODERATE /HPF; YEAST,URINE FEW /HPF
--- NOTE | 2017-10-20 14:21 | Diagnostic Imaging Report ---
INDICATION: History of pneumonia. Found down. COMPARISON: 10/01/2017 FINDINGS: Single frontal radiographic view of the chest was obtained and demonstrates interval development of increased interstitial thickening with scattered patchy and confluent alveolar infiltrates within the left lung. There is some relative sparing of the far inferior and apical regions of the left lung. Right lung is relatively clear. No large effusion or pneumothorax is seen on either side. Cardiac silhouette and pulmonary vasculature are stable. Bony structures show no gross acute abnormalities. IMPRESSION: 1. Interval development of left lung infiltrates consistent with pneumonia. Followup is recommended. Dictated by: Dictated on workstation # [id number]
[2017-10-20] MEDS ORDERED: NS IV 1000 ML 1,000 ML IV ONE (14:55)
[2017-10-20] MEDS ORDERED: MEROPENEM 500 MG in NS (IVPB) 100 ML IV ONE (15:00)
--- NOTE | 2017-10-20 16:01 | Diagnostic Imaging Report ---
Clinical indication: Patient with central line placement. Exam: Portable chest x-ray upright view. Comparison: Portable chest x-ray, upright view dated 10/20/2017. Findings: There is slight improved aeration of the left upper lobe region. Otherwise, there is persistent reticulonodular changes seen throughout both lungs (left side more than the right), and patchy airspace opacities involving the left perihilar, and left upper lobe region, left lung base. There is no pleural effusion or pneumothorax. Pulmonary vasculature and cardiac silhouette are within normal limits. There is interval placement of a right IJ central line with tip in the distal superior vena cava. The remainder of this exam shows no significant interval change compared to the prior study of comparison. Impression: 1: Interval placement of a right IJ central line with tip in the distal superior vena cava. There is no pneumothorax. 2: Slight improved aeration of the left upper lobe. Otherwise, stable persistent bilateral lung infiltrates (left side more than the right). Dictated by: Dictated on workstation # [id number]
--- NOTE | 2017-10-20 16:14 | Pulmonary Consultation ---
History of Present Illness History of Present Illness Date of Consultation 10/20/17 16:09 Time Seen by Provider: 16:09 Date of Admission History of Present Illness 72yo with hx of recent hospitalization secondary to pneumonia and just discharged 2wks ago presented to ED secondary to worsening weakness, fever 102.7 , and SOB. Pt was found to be hypoxic and is currently requiring 8 liters of oxygen via a NC. Allergies and Home Medications Allergies Coded Allergies: Penicillins (Verified Allergy, Unknown, 10/04/17) Home Medications Acetaminophen with Codeine 1 Each Tablet, 1-2 TAB PO Q6H PRN for PAIN Prescribed by: TIMBO RAY on 10/05/17 1035 Alprazolam 0.25 Mg Tablet, 0.25 MG PO Q8H PRN for ANXIETY Prescribed by: TIMBO RAY on 10/05/17 1035 Biotin 5,000 Mcg Tab.rapdis, 5,000 MCG PO DAILY, (Reported) Diphenoxylate HCl/Atropine 1 Each Tablet, 2 EACH PO Q6H Prescribed by: TIMBO RAY on 10/05/17 1035 Gabapentin 300 Mg Capsule, 600 MG PO Q4H, (Reported) Ipratropium/Albuterol Sulfate 3 Ml Ampul.neb, 3 ML INH RTQ2H PRN for SOA Prescribed by: TIMBO RAY on 10/05/17 1035 L.acidoph & Paracasei,B.lactis 1 Each Capsule, 1 EACH PO DAILY, (Reported) Oxycodone HCl/Acetaminophen 1 Each Tablet, 1 TAB PO BID PRN for PAIN-MODERATE Prescribed by: TIMBO RAY on 10/05/17 1035 Pantoprazole Sod 40 Mg Tab, 40 MG PO DAILY, (Reported) Prednisone 10 Mg Tab.ds.pk, 10 MG PO DAILY Take 6 tabs(60mg)daily,decrease by 1 tab(10MG)daily. Prescribed by: TIMBO RAY on 10/05/17 1035 Spironolactone 50 Mg Tablet, 50 MG PO DAILY, (Reported) Temazepam 30 Mg Capsule, 30 MG PO HS, (Reported) Past Qgrsieb-Dbdsiw-Qgdnbh Hx Past Med/Social Hx: Reviewed Nursing Past Med/Soc Hx Patient Social History Alcohol Use: Denies Use Recreational Drug Use: No Type Used: Cigarettes Former Smoker, Quit: September 29, 2010 Recent Foreign Travel: No Contact w/Someone Who Travel: No Recent Infectious Disease Expo: No Recent Hopitalizations: No Immunizations Up To Date Tetanus Booster (TDap): Unknown PED Vaccines UTD: Yes Seasonal Allergies Seasonal Allergies: Yes Past Medical History Surgeries: Yes (EGD/COLONOSCOPY, back surgery) Eye Surgery Respiratory: Yes Asthma, COPD Currently Using CPAP: No Currently Using BIPAP: No Cardiac: No High Cholesterol Neurological: Yes (spinal stenosis) TIA Reproductive Disorders: No Genitourinary: No Gastrointestinal: Yes (H. PYLORI) Gastroesophageal Reflux, House's Esophagus, Ulcer Musculoskeletal: Yes (spinal stenosis) Degenerate Disk Disease, Fibromyalgia, Chronic Back Pain Endocrine: No HEENT: Yes Cataract Loss of Vision: Denies Hearing Impairment: Denies Cancer: No Psychosocial: Yes Sleep Difficulties, Depression Integumentary: No Blood Disorders: No Family Medical History Reviewed Nursing Family Hx Abdominal aortic aneurysm 19 MOTHER Alonso's disease Arthritis 19 MOTHER Asthma 19 FATHER (GRANDFATHER) Cataracts 19 MOTHER Deafness or hearing loss 19 FATHER Glaucoma 19 MOTHER Headache disorder 19 MOTHER Hypertension Review of Systems Time Seen by Provider: 16:22 Exam Exam Vital Signs Date Time Temp Pulse Resp B/P (MAP) Pulse Ox O2 Delivery O2 Flow Rate FiO2 10/20/17 14:26 Vapotherm 20.00 60 10/20/17 13:32 94 Vapotherm 20.00 60 10/20/17 13:00 100.0 20 117/71 (86) 9 Nasal Cannula 8.00 General Appearance: Chronically ill, Moderate Distress HEENT: PERRL/EOMI, Pharynx Normal Neck: Non Tender, Supple Respiratory: No Respiratory Distress, Other (vapotherm still in place) Cardiovascular: Tachycardia Capillary Refill: Less Than 3 Seconds (at 3 seconds) Extremity: Normal Range of Motion, Non Tender Neurologic/Psychiatric: Alert, Oriented x3 Results Lab Laboratory Tests 10/20/17 13:08 Assessment/Plan Assessment/Plan Acute on chronic respiratory failure -Check ABG -High flow oxygen Pneumonia HCAP with severe sepsis -Weston cultures pending -Ailyn Batista -IVF Hypotension -Continue aggressive IVF -Start Solucortef 255 EMPERATRIZ CHAN DO October 20, 2017 16:14
[2017-10-20] MEDS ORDERED: VANCOMYCIN 1500 MG/NS 500 ML IVPB IV NR ×2 (16:15)
[2017-10-20] MEDS ORDERED: NS IV 1000 ML 1,769.01 ML IV PRN (16:30)
[2017-10-20] MEDS ORDERED: PHARMACY TO DOSE IV SCH (16:30)
[2017-10-20] MEDS: HYDROCORTISONE 100 MG/2 ML (Solu-CORTEF) VIAL IV SCH (16:42)
[2017-10-20] MEDS: NS IV 1000 ML 1,000 ML IV SCH ×2 (16:43→20:58)
[2017-10-20 17:07] LABS: ABG BASE EXCESS 0.1 MMOL/L (-2.5-2.5); ABG OXYGEN SATURATION 93 % (94-100); ABG PCO2 43 MMHG (35-45); ABG PH 7.37 (7.37-7.43); ABG PO2 71 MMHG (79-93); ALLENS TEST YES-POS; PATIENT TEMP 98.5; VENTILATOR NO
[2017-10-20] MEDS: NOREPINEPHRINE 4 MG in NS (IVPB) 250 ML IV SCH ×2 (18:45→19:35)
[2017-10-20] MEDS: PHENYLEPHRINE INJECTION 10 MG in NS (IVPB) 250 ML IV SCH ×2 (18:46→23:22)
[2017-10-20] MEDS: VASOPRESSIN INJECTION 20 UNIT in NS (IVPB) 100 ML IV SCH (18:46)
[2017-10-20] MEDS: RT-ALBUTEROL/IPRATROPIUM 3 ML (DUONEB) VIAL INH PRN (21:15)
[2017-10-20 21:37] LABS: ABG BASE EXCESS -2.7 MMOL/L (-2.5-2.5); ABG OXYGEN SATURATION 91 % (94-100); ABG PCO2 39 MMHG (35-45); ABG PH 7.36 (7.37-7.43); ABG PO2 59 MMHG (79-93); ABG TCO2 23.3 MMOL/L (21.0-31.0); ALLENS TEST YES-POS; PATIENT TEMP 96.6; VENTILATOR NO
[2017-10-20] MEDS ORDERED: MEROPENEM 1,000 MG in NS (IVPB) 100 ML IV SCH (22:00)
[2017-10-20] MEDS ORDERED: RT-ALBUTEROL/IPRATROPIUM 3 ML (DUONEB) VIAL ONE (22:44)
[2017-10-20] MEDS ORDERED: HALOPERIDOL 5 MG/ML (HALDOL) AMP ONE (22:51)
[2017-10-20] MEDS ORDERED: LORazepam INJ 2 MG/ML (ATIVAN) VIAL ONE (23:05)
[2017-10-20] MEDS ORDERED: HALOPERIDOL 5 MG/ML (HALDOL) AMP IV ONE (23:15)
[2017-10-20] MEDS ORDERED: LORazepam INJ 2 MG/ML (ATIVAN) VIAL IVP ONE (23:30)
[2017-10-21] VITALS (23 sets, daily range): BP systolic 82–126; BP diastolic 32–76
[2017-10-21] MEDS: MEROPENEM 500 MG in NS (IVPB) 100 ML IV SCH ×4 (00:49→22:56)
[2017-10-21] MEDS: HYDROCORTISONE 100 MG/2 ML (Solu-CORTEF) VIAL IV SCH ×4 (00:49→23:01)
[2017-10-21] MEDS: NS IV 1000 ML 1,000 ML IV SCH ×5 (01:06→21:13)
[2017-10-21] MEDS: PHENYLEPHRINE INJECTION 10 MG in NS (IVPB) 250 ML IV SCH ×6 (01:07→21:40)
[2017-10-21] MEDS: VASOPRESSIN INJECTION 20 UNIT in NS (IVPB) 100 ML IV SCH ×3 (01:07→17:39)
[2017-10-21] MEDS: RT-ALBUTEROL/IPRATROPIUM 3 ML (DUONEB) VIAL INH PRN (03:40)
[2017-10-21 03:49] LABS: ABG BASE EXCESS -3.8 MMOL/L (-2.5-2.5); ABG OXYGEN SATURATION 99 % (94-100); ABG PCO2 41 MMHG (35-45); ABG PO2 141 MMHG (79-93); ABG TCO2 22.6 MMOL/L (21.0-31.0)
[2017-10-21 03:50] LABS: ALLENS TEST YES-POS; INSPIRED O2 60%; PATIENT TEMP 96.9; VENTILATOR NO
[2017-10-21 03:52] LABS: ABG PH 7.33 (7.37-7.43)
[2017-10-21 04:14] LABS: BASOPHILS % (AUTO) 0 % (0-10); EOSINOPHILS % (AUTO) 0 % (0-10); HEMATOCRIT 31 % (35-52); HEMOGLOBIN 9.5 G/DL (11.5-16.0); LYMPHOCYTES # (AUTO) 0.4 X 10^3 (1.0-4.0); LYMPHOCYTES % (AUTO) 5 % (12-44); MEAN CORPUSCULAR HEMOGLOBIN 32 PG (25-34); MEAN CORPUSCULAR HGB CONC 31 G/DL (32-36); MEAN CORPUSCULAR VOLUME 103 FL (80-99); MEAN PLATELET VOLUME 9.8 FL (7.4-10.4); MONOCYTES # (AUTO) 0.3 X 10^3 (0.0-1.0); MONOCYTES % (AUTO) 3 % (0-12); NEUTROPHILS # (AUTO) 8.3 X 10^3 (1.8-7.8); NEUTROPHILS % (AUTO) 92 % (42-75); PLATELET COUNT 278 10^3/uL (130-400); RED BLOOD COUNT 2.96 10^6/uL (4.35-5.85); RED CELL DISTRIBUTION WIDTH 13.8 % (10.0-14.5); WHITE BLOOD COUNT 9.1 10^3/uL (4.3-11.0)
[2017-10-21 04:40] LABS: ALANINE AMINOTRANSFERASE 17 U/L (0-55); ALBUMIN 2.6 GM/DL (3.2-4.5); ALKALINE PHOSPHATASE 55 U/L (40-136); BILIRUBIN,TOTAL 0.4 MG/DL (0.1-1.0); BUN/CREATININE RATIO 11; CALCIUM 7.9 MG/DL (8.5-10.1); CARBON DIOXIDE 20 MMOL/L (21-32); CHLORIDE 114 MMOL/L (98-107); CREATININE SERUM 0.63 MG/DL (0.60-1.30); GFR ESTIMATED > 60; GLUCOSE 155 MG/DL (70-105); MAGNESIUM 1.1 MG/DL (1.8-2.4); PHOSPHORUS 2.6 MG/DL (2.3-4.7); POTASSIUM 4.1 MMOL/L (3.6-5.0); SODIUM 143 MMOL/L (135-145); TOTAL PROTEIN 5.4 GM/DL (6.4-8.2)
[2017-10-21] MEDS: POTASSIUM CL 10MEQ/50ML IVPB 50 ML IV SCH (05:16)
[2017-10-21] MEDS ORDERED: MAGNESIUM 1 GM/100 ML IVPB 100 ML IV SCH (06:00)
--- NOTE | 2017-10-21 06:14 | Diagnostic Imaging Report ---
PROCEDURE: CT head without contrast. TECHNIQUE: Multiple contiguous axial images were obtained through the brain without the use of intravenous contrast. DATE: October 20, 2017. COMPARISON: CT head and cervical spine September 29, 2017. INDICATION: 72-year-old female, confusion. History of pneumonia and sepsis. FINDINGS: There is mild proportional prominence of the ventricles and CSF spaces consistent with mild cerebral volume loss. There is no mass effect or midline shift. There is no acute intracranial hemorrhage. There is no abnormal extra-axial fluid collection. The visualized portions of the paranasal sinuses, mastoid air cells and middle ears are well aerated. There is pneumatization of the petrous apices. IMPRESSION: 1. No acute intracranial abnormality. 2. Mild cerebral volume loss. Dictated by: Dictated on workstation # [id number]
[2017-10-21] MEDS: MAGNESIUM 1 GM/100 ML IVPB 100 ML IV SCH ×4 (06:28→09:19)
[2017-10-21] MEDS: KCL 20 MEQ TAB (K-DUR) PO SCH (06:34)
[2017-10-21] MEDS: RT-ALBUTEROL/IPRATROPIUM 3 ML (DUONEB) VIAL INH SCH ×5 (06:50→21:51)
--- NOTE | 2017-10-21 06:50 | Pulmonary Progress Note ---
Subjective Time Seen by Provider: 06:52 Subjective/Events-last exam Pt is currently requiring BIPAP. Now off Levophed. Focused Exam Lactate Level 10/20/17 13:08: Lactic Acid Level 1.07 10/20/17 21:30: Lactic Acid Level 1.36 Time of Focused Exam: 15:52 Exam Exam Vital Signs Date Time Temp Pulse Resp B/P (MAP) Pulse Ox O2 Delivery O2 Flow Rate FiO2 10/21/17 06:00 71 17 109/61 (77) 93 NIV Bilevel 60.00 10/21/17 05:00 76 19 117/70 (86) 92 NIV Bilevel 60.00 10/21/17 04:00 93 NIV Bilevel 60 10/21/17 04:00 79 19 114/62 (79) 94 NIV Bilevel 60.00 10/21/17 03:40 71 16 92 60.00 10/21/17 03:00 71 17 125/67 (86) 98 NIV Bilevel 60.00 10/21/17 02:00 73 18 96 NIV Bilevel 60.00 10/21/17 01:00 78 19 93 NIV Bilevel 60.00 10/21/17 01:00 78 10/21/17 00:00 97.7 10/21/17 00:00 94 NIV Bilevel 60 10/21/17 00:00 79 14 93 NIV Bilevel 60.00 10/20/17 23:20 NIV Bilevel 60.00 10/20/17 23:20 84 17 94 60.00 10/20/17 23:00 106 21 91 Vapotherm 55.00 15.00 10/20/17 22:00 75 13 121/70 (87) 93 Vapotherm 55.00 15.00 10/20/17 21:15 94 Vapotherm 30.00 70 10/20/17 21:00 92 Vapotherm 15.00 55 10/20/17 21:00 108 92 10/20/17 21:00 83 15 117/64 (81) 93 Vapotherm 55.00 15.00 10/20/17 20:54 97.7 83 16 93/52 (66) 94 Vapotherm 55.00 15.00 10/20/17 20:00 71 13 145/68 (93) 92 Vapotherm 55.00 15.00 10/20/17 19:45 59 15 154/84 (107) 97 Vapotherm 55.00 15.00 10/20/17 19:30 83 13 85/51 (62) 97 Vapotherm 55.00 15.00 10/20/17 19:15 83 12 85/53 (64) 93 Vapotherm 55.00 15.00 10/20/17 19:00 84 10/20/17 19:00 84 12 86/49 (61) 91 Vapotherm 55.00 15.00 10/20/17 16:16 Vapotherm 15.00 55 10/20/17 15:20 113 18 89/33 94 Vapotherm 10/20/17 14:26 Vapotherm 20.00 60 10/20/17 13:32 94 Vapotherm 20.00 60 10/20/17 13:00 100.0 20 117/71 (86) 9 Nasal Cannula 8.00 I & O 10/21/17 07:00 Intake Total 1025 ml Output Total 1450 ml Balance -425 ml General Appearance: Chronically ill, Moderate Distress HEENT: PERRL/EOMI, Pharynx Normal Neck: Non Tender, Supple Respiratory: No Respiratory Distress, Other (vapotherm still in place) Cardiovascular: Tachycardia Capillary Refill: Less Than 3 Seconds (at 3 seconds) Extremity: Normal Range of Motion, Non Tender Neurologic/Psychiatric: Alert, Oriented x3 Results Lab Laboratory Tests 10/20/17 13:08 10/20/17 21:30 10/21/17 03:30 Assessment/Plan Assessment/Plan Acute on chronic respiratory failure -Check ABG -High flow oxygen -BiPAP PRN Pneumonia HCAP with severe sepsis -Weston cultures pending -Merrem, Vanco -IVF -Check BNP - pt may need lasix Hypotension - improved -Continue aggressive IVF -Start Solucortef Metabolic encephalopathy -Monitor, Head CT negative Delirium -Start Haldol PRN 233 EMPERATRIZ CHAN DO October 21, 2017 06:50
--- NOTE | 2017-10-21 07:22 | Diagnostic Imaging Report ---
INDICATION: Followup pneumonia. History of sepsis. COMPARISON: 10/20/2017 FINDINGS: Single frontal radiographic view of the chest was obtained and demonstrates persistent bilateral scattered patchy and confluent infiltrates, greatest within the left midlung field. There may be some interval progression of focal airspace disease within the lateral inferior margins of the right upper lobe when compared to prior exam. There is no large effusion or pneumothorax. Cardiac silhouette and pulmonary vasculature are stable. Right internal jugular central venous catheter is stable as well. IMPRESSION: 1. Persistent bilateral infiltrates, left greater than right. 2. Potential developing new area of infiltrate in the right upper lobe. Continued followup is recommended. Dictated by: Dictated on workstation # [id number]
[2017-10-21] MEDS: morphine INJ 4 MG/ML 1 ML (VIAL/SYRINGE) IVP PRN ×2 (09:19→21:28)
[2017-10-21] MEDS ORDERED: ONDA8TAB9 SL (09:52)
[2017-10-21] MEDS ORDERED: OXYC-197 PO (09:52)
[2017-10-21] MEDS ORDERED: ALPR0.25 PO (09:52)
[2017-10-21] MEDS ORDERED: PRED5TAB PO (09:52)
[2017-10-21] MEDS ORDERED: PROM25TA14 PO (09:52)
[2017-10-21] MEDS ORDERED: IPRA3AMP NEB (09:52)
[2017-10-21] MEDS ORDERED: ACET-790 PO (09:52)
[2017-10-21] MEDS ORDERED: BUDE0.5A NEB (09:52)
[2017-10-21] MEDS ORDERED: PANT40TA3 PO (09:52)
[2017-10-21] MEDS ORDERED: DIPH1TAB PO (09:52)
--- NOTE | 2017-10-21 10:07 | History & Physical-Hospitalist ---
History of Present Illness HPI/Chief Complaint CC: Dyspnea HPI: This is a 72-year-old white female known to me from prior hospital stay and clinic patient at the [facility] with severe COPD from prior 3 pack a day smoker until 6 years ago when she converted to a Jainism and possible left lower lobe lung mass presented to the ER with increased dyspnea and unable to manage at home. I seen her in the clinic last Tuesday had scheduled follow-up again today before she worsened to the point she presented to the ER. Patient was found to be acute on chronic respiratory failure requiring BiPAP and treatment for pneumonia with meropenem and vancomycin. 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 I have sent pastoral care up with advanced directive papers and her friend has agreed to talk to her about it more in depth. She was to see pulmonology in the clinic for repeat CT scan to be checked in a matter of 4 more weeks considering the high suspicion of lung cancer and that is consistent with a recurrent type I'm assuming it is postobstructive pneumonia. Source: patient Date Seen 10/21/17 Time Seen by Provider: 09:15 Attending Physician Jamilah Gerardo DO PCP Jamilah Gerardo DO Referring Physician Date of Admission October 20, 2017 at 15:05 Home Medications & Allergies Home Medications Reviewed patient Home Medication Reconciliation performed by pharmacy medication reconciliations chemical treatment plant technician and/or nursing. Patients Allergies have been reviewed. 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) Alcohol Use: Denies Use Recreational Drug Use: No Smoking Status: Former Smoker Former Smoker, Quit: September 29, 2010 Type Used: Cigarettes Physical Abuse Screen: No Sexual Abuse: No Recent Foreign Travel: No Contact w/other who traveled: No Recent Hopitalizations: No Recent Infectious Disease Expo: No Immunizations Up To Date Tetanus Booster (TDap): Unknown Pediatric: Yes Seasonal Allergies Seasonal Allergies: Yes Past Medical History Surgeries: Eye Surgery Respiratory: COPD, Pneumonia Currently Using CPAP: No Currently Using BIPAP: No Cardiac: High Cholesterol Neurological: TIA Reproductive: No Gastrointestinal: Gastroesophageal Reflux, House's Esophagus, Ulcer Musculoskeletal: Degenerate Disk Disease, Fibromyalgia, Chronic Back Pain HEENT: Cataract Loss of Vision: Denies Hearing Impairment: Denies Psychosocial: Sleep Difficulties, Depression History of Blood Disorders: No Family History Reviewed Nursing Family Hx Abdominal aortic aneurysm 19 MOTHER Alonso's disease Arthritis 19 MOTHER Asthma 19 FATHER (GRANDFATHER) Cataracts 19 MOTHER Deafness or hearing loss 19 FATHER Glaucoma 19 MOTHER Headache disorder 19 MOTHER Hypertension Review of Systems Constitutional: dizziness, malaise, weakness EENTM: no symptoms reported Respiratory: cough, dyspnea on exertion, short of breath, wheezing Cardiovascular: no symptoms reported Gastrointestinal: nausea Genitourinary: no symptoms reported Musculoskeletal: no symptoms reported Skin: no symptoms reported Psychiatric/Neurological: Anxiety, Depressed All Other Systems Reviewed Negative Unless Noted: Yes Physical Exam Physical Exam Vital Signs Vital Signs - First Documented 10/20/17 10/20/17 10/20/17 13:00 13:32 15:20 Temp 100.0 Pulse 113 Resp 20 B/P (MAP) 117/71 (86) Pulse Ox 9 O2 Delivery Nasal Cannula O2 Flow Rate 8.00 FiO2 60 Capillary Refill : Less Than 3 Seconds General Appearance: No Apparent Distress, WD/WN, Chronically ill, Other ( anxious, biPAP on) HEENT: PERRL/EOMI, Normal ENT Inspection, Pharynx Normal Neck: Full Range of Motion, Normal Inspection, Non Tender, Supple Respiratory: Crackles, Decreased Breath Sounds, Wheezing Cardiovascular: Regular Rate, Rhythm, No Edema Neurologic/Psychiatric: Alert, Oriented x3, No Motor/Sensory Deficits, Normal Mood/Affect, 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 Assessment/Plan Admission Diagnosis Assessment: Acute on chronic respiratory failure Recurrent left lower lobe pneumonia presumed postobstructive due to left lower lobe lung mass and a prior smoker of 3 packs a day. 6 years ago Chronic pain Anxiety Plan: DC BiPAP at her request Needs DO NOT RESUSCITATE Hospice candidate Supportive care but nothing more can be done to modify the lack of progress Admission Status: Inpatient Order (span 2 midnights) Reason for Inpatient Admission: Severe respiratory failure Diagnosis/Problems Diagnosis/Problems (1) Mass of left lung Status: Acute Assessment & Plan: presumed cancer? (2) Severe sepsis Status: Acute (3) Pneumonia Status: Acute Qualifiers: Pneumonia type: due to unspecified organism Laterality: left Lung location: upper lobe of lung Qualified Codes: J18.1 - Lobar pneumonia, unspecified organism (4) RESPIRATORY FAILURE, UNSP, UNSP W HYPOXIA OR HYPERCAPNIA Status: Acute (5) Poor prognosis Status: Chronic (6) Chronic pain Status: Chronic (7) Debility Status: Chronic (8) Chronic diarrhea Status: Chronic (9) Neuropathy Status: Chronic (10) COPD (chronic obstructive pulmonary disease) Status: Chronic Qualifiers: COPD type: unspecified COPD Qualified Codes: J44.9 - Chronic obstructive pulmonary disease, unspecified (11) Hypoxia Status: Acute Clinical Quality Measures DVT/VTE Risk/Contraindication: Risk Factor Score Per Nursin RFS Level Per Nursing on Admit: 2=Moderate JAMILAH GERARDO DO October 21, 2017 10:07
[2017-10-21] MEDS ORDERED: oxyCODONE/APAP 5/325MG (PERCOCET 5) TABLET ONE (11:41)
[2017-10-21] MEDS: oxyCODONE/APAP 5/325MG (PERCOCET 5) TABLET PO PRN ×2 (11:48→23:01)
[2017-10-21] MEDS ORDERED: VANCOMYCIN 1250 MG/NS 250 ML IVPB IV SCH ×2 (16:00)
[2017-10-21] MEDS: VANCOMYCIN 1 GM/NS 250 ML IVPB IV SCH ×2 (16:33)
--- NOTE | 2017-10-21 16:59 | Consultation-Cardiology ---
HPI-Cardiology Cardiology Consultation: Date of Consultation 10/21/17 Time Seen by Provider: 16:20 Date of Admission 10/20/17 Attending Physician Jamilah Gerardo DO Admitting Physician Jamilah Gerardo DO Consulting Physician NAGA ADAIR MD, MA, FACP, FACC, FSCAI, CCDS Physician requesting consult: Dr Gerardo HPI: Chief Complaint: Weakness, malaise, fever, chills, shortness of breath 72 yo woman admitted to Dr Gerardo with several days of increasing weakness, malaise, fever, chills, shortness of breath. She has been diagnosed with ac on ch resp failure due to pneumonia that is also associated with sepsis. She does not report cp or palp or syncope or leg swelling She denies any h/o CHF or other heart problems Review of Systems-Cardiology Review of Systems Constitutional: As described under HPI Eyes: No vision change Ears/Nose/Throat: No ear discharge, No nasal drainage Respiratory: As described under HPI Cardiovascular: As described under HPI Gastrointestinal: No constipation, No diarrhea, No nausea, No vomiting Genitourinary: No dysuria; frequency Musculoskeletal: back pain (chronic), joint pain (chronic) Skin: No rash Psychiatric/Neurological: No seizure, No focal weakness, No syncope Hematologic: No bleeding abnormalities All Other Systems Reviewed Negative Unless Noted: Yes [id number] Hx Patient Social History Marrital Status: Employed/Student: retired ([employer]) Alcohol Use: Denies Use Recreational Drug Use: No Smoking Status: Former Smoker Former smoker/When Quit: Jul 20, 2011 Type Used: Cigarettes Recent Foreign Travel: No Recent Infectious Disease Expo: No Physical Abuse Screen: No Sexual Abuse: No Immunizations Up To Date Tetanus Booster (TDap): Unknown Past Medical History PMH As described under Assessment. Family Medical History Family Medical History: She reports her mother and father both had CAD. She does not report a h/o premature CAD or SCD. Family History: Abdominal aortic aneurysm 19 MOTHER Alonso's disease Arthritis 19 MOTHER Asthma 19 FATHER (GRANDFATHER) Cataracts 19 MOTHER Deafness or hearing loss 19 FATHER Glaucoma 19 MOTHER Headache disorder 19 MOTHER Allergies and Home Medications Allergies Coded Allergies: Penicillins (Verified Allergy, Unknown, 10/04/17) Home Medications Acetaminophen with Codeine 1 Each Tablet, 1-2 TAB PO Q6H PRN for PAIN-MODERATE, (Reported) Alprazolam 0.25 Mg Tablet, 0.25 MG PO Q8H PRN for ANXIETY, (Reported) Biotin 5,000 Mcg Tab.rapdis, 5,000 MCG PO DAILY, (Reported) Budesonide 0.5 Mg/2 Ml Ampul.neb, 0.5 MG NEB BID, (Reported) Diphenoxylate HCl/Atropine 1 Each Tablet, 2 TAB PO Q6H PRN for DIARRHEA, ( Reported) Gabapentin 300 Mg Capsule, 900 MG PO TID, (Reported) TAKES 3 (300MG) CAPSULES Ipratropium/Albuterol Sulfate 3 Ml Ampul.neb, 3 ML NEB Q2H PRN for SHORTNESS OF BREATH, (Reported) L.acidoph & Paracasei,B.lactis 1 Each Capsule, 1 CAP PO DAILY, (Reported) Ondansetron 8 Mg Tab.rapdis, 8 MG SL Q8H PRN for NAUSEA/VOMITING-1ST LINE, ( Reported) Oxycodone HCl/Acetaminophen 1 Each Tablet, 1 TAB PO BID PRN for PAIN- BREAKTHROUGH, (Reported) Pantoprazole Sodium 40 Mg Tablet.dr, 40 MG PO DAILY, (Reported) Prednisone 5 Mg Tablet, 5 MG PO DAILY, (Reported) Promethazine HCl 25 Mg Tablet, 25 MG PO Q4H PRN for NAUSEA/VOMITING-2ND LINE, ( Reported) Spironolactone 50 Mg Tablet, 50 MG PO DAILY, (Reported) LAST FILLED #30 08-28-18 Temazepam 30 Mg Capsule, 30 MG PO HS, (Reported) Patient Home Medication List Home Medication List Reviewed: Yes Physical Exam-Cardiology Physical Exam Vital Signs/I&O 10/21/17 10/21/17 10/21/17 10/21/17 05:00 06:00 06:50 07:00 Pulse 76 71 81 82 Resp 19 17 16 14 B/P (MAP) 117/70 (86) 109/61 (77) 101/75 (84) Pulse Ox 92 93 96 96 O2 Delivery NIV Bilevel NIV Bilevel NIV Bilevel O2 Flow Rate 60.00 60.00 50.00 60.00 10/21/17 10/21/17 10/21/17 10/21/17 07:00 07:30 08:00 08:00 Temp 96.0 Pulse 82 75 Resp 14 B/P (MAP) 107/75 (86) Pulse Ox 95 O2 Delivery NIV Bilevel NIV Bilevel NIV Bilevel O2 Flow Rate 60.00 60.00 FiO2 60 10/21/17 10/21/17 10/21/17 10/21/17 08:15 08:30 09:00 10:00 Temp 98.0 Pulse 89 96 Resp 17 11 B/P (MAP) 105/76 (86) 96/65 (75) Pulse Ox 93 93 O2 Delivery NIV Bilevel Vapotherm Vapotherm Vapotherm O2 Flow Rate 60.00 70.00 70.00 70.00 30.00 30.00 30.00 10/21/17 10/21/17 10/21/17 10/21/17 10:57 11:00 12:00 12:00 Temp 97.6 Pulse 96 109 Resp 11 18 B/P (MAP) 83/73 (76) 114/32 (59) Pulse Ox 92 93 90 O2 Delivery Vapotherm Vapotherm NIV Bilevel NIV Bilevel O2 Flow Rate 30.00 70.00 60.00 60.00 30.00 FiO2 70 10/21/17 10/21/17 10/21/17 10/21/17 12:56 13:00 13:03 14:00 Pulse 101 101 100 Resp 19 21 B/P (MAP) 105/54 (71) 98/58 (71) Pulse Ox 93 93 O2 Delivery NIV Bilevel NIV Bilevel NIV Bilevel O2 Flow Rate 60.00 60.00 FiO2 60 10/21/17 10/21/17 14:30 15:32 Pulse 94 Resp 16 Pulse Ox 93 94 O2 Delivery Vapotherm O2 Flow Rate 50.00 80.00 30.00 10/21/17 00:00 Intake Total 3540 ml Output Total 950 ml Balance 2590 ml Capillary Refill : Less Than 3 Seconds Constitutional: AAO x 3, well-developed, well-nourished HEENT: EOMI, hearing is well preserved; No xanthelasmas are seen Neck: carotid pulses are 2 + bilaterally, with good upstrokes Respiratory: No accessory muscle use, No respiratory distress, No chest tender ; other (fair bilat air entry, increased exp phase, diminished breath sounds and dullness to percussion at bases; coarse basal crackles) Cardiovascular: regular rate-rhythm, S1 and S2, systolic murmur (soft RAFFY at card base) Gastrointestinal: No tender; soft; No guarding, No rebound; audible bowel sounds Extremities: swelling (mild bilat leg swelling); No clubbing, No cyanosis Neurologic/Psychiatric: oriented x 3, grossly intact, power is 5/5 both on sides Skin: normal color, warm/dry; No mottled, No rash on exposed areas, No ulcerations on exposed areas; other (good capillary refill) Data Review Labs Laboratory Tests 10/20/17 21:30: Glucose Level 153H, Lactic Acid Level 1.36 10/20/17 21:33: Blood Gas Puncture Site RT RAD, Blood Gas Patient Temperature 96.6, Arterial Blood pH 7.36L, Arterial Blood Partial Pressure CO2 39, Arterial Blood Partial Pressure O2 59L, Arterial Blood HCO3 22L, Arterial Blood Total CO2 23.3, Arterial Blood Oxygen Saturation 91L, Arterial Blood Base Excess -2.7L, Edmond Test YES-POS, Blood Gas Ventilator Setting NO, Blood Gas Inspired Oxygen 55% 10/21/17 03:30: Glucose Level 155H, White Blood Count 9.1, Red Blood Count 2.96L, Hemoglobin 9.5L, Hematocrit 31L, Mean Corpuscular Volume 103H, Mean Corpuscular Hemoglobin 32, Mean Corpuscular Hemoglobin Concent 31L, Red Cell Distribution Width 13.8, Platelet Count 278, Mean Platelet Volume 9.8, Neutrophils (%) (Auto) 92H, Lymphocytes (%) (Auto) 5L, Monocytes (%) (Auto) 3, Eosinophils (%) (Auto) 0, Basophils (%) (Auto) 0, Neutrophils # (Auto) 8.3H, Lymphocytes # (Auto) 0.4L, Monocytes # (Auto) 0.3, Eosinophils # (Auto) 0.0, Basophils # (Auto) 0.0, Sodium Level 143, Potassium Level 4.1, Chloride Level 114#H, Carbon Dioxide Level 20L, Anion Gap 9, Blood Urea Nitrogen 7, Creatinine 0.63, Estimat Glomerular Filtration Rate > 60, BUN/Creatinine Ratio 11, Calcium Level 7.9L, Phosphorus Level 2.6, Magnesium Level 1.1L, Total Bilirubin 0.4, Aspartate Amino Transf (AST/SGOT) 23, Alanine Aminotransferase (ALT/SGPT) 17, Alkaline Phosphatase 55, Total Protein 5.4L, Albumin 2.6L 10/21/17 03:40: Blood Gas Puncture Site R RAD, Blood Gas Patient Temperature 96.9, Arterial Blood pH 7.33*L, Arterial Blood Partial Pressure CO2 41, Arterial Blood Partial Pressure O2 141H, Arterial Blood HCO3 21L, Arterial Blood Total CO2 22.6, Arterial Blood Oxygen Saturation 99, Arterial Blood Base Excess -3.8L, Edmond Test YES-POS, Blood Gas Ventilator Setting NO, Blood Gas Inspired Oxygen 60% 10/21/17 08:00: B-Type Natriuretic Peptide 607.1H Microbiology 10/20/17 Blood Culture - Preliminary, Resulted No growth 10/20/17 Urine Culture - Final, Complete Laboratory Tests 10/20/17 13:08 10/20/17 21:30 10/21/17 03:30 A/P-Cardiology Assessment/Admission Diagnosis Acute on chronic resp failure due to ac exac of COPD due to pneumonia Septicemia due to pneumonia and/or UTI UTI COPD She denies any h/o CHF or [place] Echo of 07/21/15: Normal global left ventricular systolic function with an ejection fraction of approximately 60%; Mild mitral annular calcification and aortic valve sclerosis without evidence of any significant valvular stenosis; Pulmonary artery systolic pressure is estimated to be approximately 30mmHg. Quit tobacco use in 2011 Discussion and Recomendations * Give fluids as needed for sepsis * Monitor labs * I spoke with her and her fam in detail and answered CV-related questions Clinical Quality Measures DVT/VTE Risk/Contraindication: Risk Factor Score Per Nursin RFS Level Per Nursing on Admit: 2=Moderate NAGA ADAIR MD FACP FAC CCDS October 21, 2017 16:59
[2017-10-21] MEDS: NOREPINEPHRINE 4 MG in NS (IVPB) 250 ML IV SCH (19:10)
[2017-10-21] MEDS: ENOXAPARIN 40 MG/0.4 ML (LOVENOX) SYR SC SCH (21:28)
[2017-10-21] MEDS: HALOPERIDOL 5 MG/ML (HALDOL) AMP IV PRN (22:55)
[2017-10-22] VITALS (25 sets, daily range): BP systolic 83–151; BP diastolic 54–118
[2017-10-22] MEDS ORDERED: LORazepam INJ 2 MG/ML (ATIVAN) VIAL ONE ×2 (01:53→06:56)
[2017-10-22] MEDS: RT-ALBUTEROL/IPRATROPIUM 3 ML (DUONEB) VIAL INH SCH ×6 (01:56→22:22)
[2017-10-22] MEDS: PHENYLEPHRINE INJECTION 10 MG in NS (IVPB) 250 ML IV SCH ×4 (02:07→14:30)
[2017-10-22] MEDS: VASOPRESSIN INJECTION 20 UNIT in NS (IVPB) 100 ML IV SCH ×2 (02:07→11:50)
[2017-10-22] MEDS: morphine INJ 4 MG/ML 1 ML (VIAL/SYRINGE) IVP PRN ×6 (02:08→22:49)
[2017-10-22] MEDS ORDERED: LORazepam INJ 2 MG/ML (ATIVAN) VIAL IVP ONE (02:15)
[2017-10-22 03:49] LABS: BASOPHILS % (AUTO) 0 % (0-10); EOSINOPHILS % (AUTO) 0 % (0-10); HEMATOCRIT 28 % (35-52); HEMOGLOBIN 8.9 G/DL (11.5-16.0); LYMPHOCYTES # (AUTO) 0.4 X 10^3 (1.0-4.0); LYMPHOCYTES % (AUTO) 5 % (12-44); MEAN CORPUSCULAR HEMOGLOBIN 32 PG (25-34); MEAN CORPUSCULAR HGB CONC 31 G/DL (32-36); MEAN CORPUSCULAR VOLUME 103 FL (80-99); MEAN PLATELET VOLUME 9.6 FL (7.4-10.4); MONOCYTES # (AUTO) 0.3 X 10^3 (0.0-1.0); MONOCYTES % (AUTO) 3 % (0-12); NEUTROPHILS # (AUTO) 8.1 X 10^3 (1.8-7.8); NEUTROPHILS % (AUTO) 92 % (42-75); PLATELET COUNT 249 10^3/uL (130-400); RED BLOOD COUNT 2.77 10^6/uL (4.35-5.85); RED CELL DISTRIBUTION WIDTH 13.8 % (10.0-14.5); WHITE BLOOD COUNT 8.7 10^3/uL (4.3-11.0)
[2017-10-22] MEDS: NS IV 1000 ML 1,000 ML IV SCH ×4 (04:17→20:48)
[2017-10-22 05:10] LABS: ALANINE AMINOTRANSFERASE 17 U/L (0-55); ALBUMIN 2.5 GM/DL (3.2-4.5); ALKALINE PHOSPHATASE 53 U/L (40-136); BILIRUBIN,TOTAL 0.3 MG/DL (0.1-1.0); BUN/CREATININE RATIO 10; CALCIUM 7.7 MG/DL (8.5-10.1); CARBON DIOXIDE 20 MMOL/L (21-32); CHLORIDE 117 MMOL/L (98-107); GFR ESTIMATED > 60; GLUCOSE 122 MG/DL (70-105); PHOSPHORUS 1.8 MG/DL (2.3-4.7); POTASSIUM 3.6 MMOL/L (3.6-5.0); SODIUM 146 MMOL/L (135-145); TOTAL PROTEIN 5.1 GM/DL (6.4-8.2)
[2017-10-22] MEDS: HYDROCORTISONE 100 MG/2 ML (Solu-CORTEF) VIAL IV SCH ×3 (05:24→21:51)
[2017-10-22] MEDS: MEROPENEM 500 MG in NS (IVPB) 100 ML IV SCH ×2 (05:26→14:43)
[2017-10-22] MEDS: KCL 20 MEQ TAB (K-DUR) PO SCH (05:45)
[2017-10-22] MEDS: POTASSIUM CL 10MEQ/50ML IVPB 50 ML IV SCH ×2 (05:45→05:46)
[2017-10-22] MEDS: HALOPERIDOL 5 MG/ML (HALDOL) AMP IV PRN (06:54)
[2017-10-22] MEDS ORDERED: LORazepam INJ 2 MG/ML (ATIVAN) VIAL IVP NR (07:28)
[2017-10-22] MEDS: NOREPINEPHRINE 4 MG in NS (IVPB) 250 ML IV SCH (09:07)
[2017-10-22] MEDS: oxyCODONE/APAP 5/325MG (PERCOCET 5) TABLET PO PRN (12:23)
--- NOTE | 2017-10-22 13:34 | Diagnostic Imaging Report ---
EXAMINATION: Portable erect AP chest at 03:01 a.m. INDICATION: Respiratory distress. FINDINGS: The prior exam of 10/21/2017 noted bilateral alveolar/interstitial pulmonary infiltrates with greater involvement on the left. Those findings are again evident on this study and do not seem to have changed significantly. The left lung base may be slightly better aerated than on the prior exam. The heart is stable. The mediastinum is not widened. The osseous structures are intact. The central venous catheter on the right remains in good position. IMPRESSION: When compared with the prior study, there does not appear to have been any significant change. There are still diffuse alveolar/interstitial pulmonary infiltrates bilaterally. A follow-up exam will be recommended for continued evaluation. Dictated by: Dictated on workstation # [id number]
--- NOTE | 2017-10-22 14:21 | Progress Note-Cardiology ---
Cardiology SOAP Progress Note Subjective: Still quite short of breath No cp Denies palp or syncope Objective: I&O/Vital Signs 10/22/17 10/22/17 10/22/17 10/22/17 03:00 04:00 04:00 04:15 Pulse 112 84 84 Resp 26 15 14 B/P (MAP) 116/79 (91) 118/62 (80) Pulse Ox 93 94 94 O2 Delivery NIV Bilevel NIV Bilevel Vapotherm O2 Flow Rate 40.00 40.00 30.00 40.00 FiO2 60 10/22/17 10/22/17 10/22/17 10/22/17 05:00 06:00 06:19 06:30 Pulse 82 82 84 113 Resp 17 16 16 33 B/P (MAP) 111/77 (88) 124/74 (91) Pulse Ox 94 94 94 O2 Delivery NIV Bilevel NIV Bilevel NIV Bilevel O2 Flow Rate 40.00 40.00 40.00 50.00 10/22/17 10/22/17 10/22/17 10/22/17 07:00 08:10 08:20 08:33 Temp 97.3 Pulse 101 110 Resp 23 B/P (MAP) Pulse Ox 96 O2 Delivery NIV Bilevel NIV Bilevel O2 Flow Rate 50.00 50.00 FiO2 50 10/22/17 10/22/17 10/22/17 10/22/17 10:28 12:05 12:05 13:00 Temp 97.6 Pulse 105 B/P (MAP) Pulse Ox 95 O2 Delivery Vapotherm Vapotherm Vapotherm O2 Flow Rate 20.00 30.00 50.00 30.00 FiO2 60 50 10/22/17 00:00 Intake Total 1275 ml Output Total 710 ml Balance 565 ml Weight (Pounds): 155 Weight (Ounces): 5.0 Weight (Calculated Kilograms): [id number] Constitutional: AAO x 3, well-developed, well-nourished, other (appears short of breath) Respiratory: No accessory muscle use, No respiratory distress, No chest tender ; other (diminished bilat air entry, increased exp phase, diminished breath sounds and dullness to percussion at bases; coarse basal crackles) Cardiovascular: regular rate-rhythm, S1 and S2, systolic murmur (soft RAFFY at card base) Gastrointestional: No tender; soft; No guarding, No rebound; audible bowel sounds Extremities: swelling (mild bilat leg swelling); No clubbing, No cyanosis Neurologic/Psychiatric: oriented x 3, grossly intact, power is 5/5 both on sides Skin: normal color, warm/dry; No mottled, No rash on exposed areas, No ulcerations on exposed areas; other (good capillary refill) Results/Procedures: Labs Laboratory Tests 10/22/17 03:25: White Blood Count 8.7, Red Blood Count 2.77L, Hemoglobin 8.9L, Hematocrit 28L, Mean Corpuscular Volume 103H, Mean Corpuscular Hemoglobin 32, Mean Corpuscular Hemoglobin Concent 31L, Red Cell Distribution Width 13.8, Platelet Count 249, Mean Platelet Volume 9.6, Neutrophils (%) (Auto) 92H, Lymphocytes (%) (Auto) 5L , Monocytes (%) (Auto) 3, Eosinophils (%) (Auto) 0, Basophils (%) (Auto) 0, Neutrophils # (Auto) 8.1H, Lymphocytes # (Auto) 0.4L, Monocytes # (Auto) 0.3, Eosinophils # (Auto) 0.0, Basophils # (Auto) 0.0, Sodium Level 146H, Potassium Level 3.6, Chloride Level 117H, Carbon Dioxide Level 20L, Anion Gap 9, Blood Urea Nitrogen 6L, Creatinine 0.60, Estimat Glomerular Filtration Rate > 60, BUN/ Creatinine Ratio 10, Glucose Level 122H, Calcium Level 7.7L, Phosphorus Level 1.8L, Magnesium Level 2.0, Total Bilirubin 0.3, Aspartate Amino Transf (AST/SGOT ) 20, Alanine Aminotransferase (ALT/SGPT) 17, Alkaline Phosphatase 53, Total Protein 5.1L, Albumin 2.5L Microbiology 10/20/17 Blood Culture - Preliminary, Resulted No growth 10/20/17 Urine Culture - Final, Complete Laboratory Tests 10/20/17 21:30 10/21/17 03:30 10/22/17 03:25 A/P: Assessment: Acute on chronic resp failure due to ac exac of COPD due to pneumonia, managed by Dr Gerardo Septicemia due to pneumonia and/or UTI, managed by Dr Gerardo Volume overload vs mild diastolic CHF, as indicated by elevated BNP Sinus tachycardia due to systemic illness and sepsis UTI COPD Anemia of undetermined etiology, worsening, managed by Dr Gerardo She denies any h/o CHF or [place] Echo of 07/21/15: Normal global left ventricular systolic function with an ejection fraction of approximately 60%; Mild mitral annular calcification and aortic valve sclerosis without evidence of any significant valvular stenosis; Pulmonary artery systolic pressure is estimated to be approximately 30mmHg. Quit tobacco use in 2011 Plan: * One dose of furosemide today (for suspected vol overload/ac curtis CHF) * Give fluids as needed for sepsis * Monitor labs * Clinical status does not seem to have improved significantly since I saw are last yesterday * Prognosis guarded NAGA ADAIR MD FACP FAC CCDS October 22, 2017 14:20
--- NOTE | 2017-10-22 14:27 | Progress Note-Hospitalist ---
Subjective HPI/CC On Admission Date Seen by Provider: October 22, 2017 Time Seen by Provider: 10:30 CC: Dyspnea HPI: This is a 72-year-old white female known to me from prior hospital stay and clinic patient at the [facility] with severe COPD from prior 3 pack a day smoker until 6 years ago when she converted to a Denominational and possible left lower lobe lung mass presented to the ER with increased dyspnea and unable to manage at home. I seen her in the clinic last Tuesday had scheduled follow-up again today before she worsened to the point she presented to the ER. Patient was found to be acute on chronic respiratory failure requiring BiPAP and treatment for pneumonia with meropenem and vancomycin. I had discussed with the patient for advanced directives and social work specialist at the clinic had met with them they have the paperwork in their hands last week but failed to fill all that out so I did have a long conversation with her and her friend at the bedside about the need to prepare for possible lack of recovery and she dislikes the BiPAP so that will be discontinued and placed on Vapotherm but overall prognosis is extremely poor and she was a hospice candidate weeks ago. I have sent pastoral care up with advanced directive papers and her friend has agreed to talk to her about it more in depth. She was to see pulmonology in the clinic for repeat CT scan to be checked in a matter of 4 more weeks considering the high suspicion of lung cancer and that is consistent with a recurrent type I'm assuming it is postobstructive pneumonia. Subjective/Events-last exam Patient is declining rapidly regardless of aggressive treatment I have maintained since admission Patient was to go home on hospice but she cannot survive without high flow oxygen Vapotherm and that would be impossible for hospice and likely she would in transit to home Ativan and morphine given for air hunger Patient appears to be north and ashen and much worse I spoke with Jamar out in the hallway and explained that there is imminent and no ability to modify this fact and he now agrees and will plan on moving downstairs to fourth floor and initiate comfort care protocol and I told him to call her son who works for the [employer] in [facility] Patient very much declined and if I would titrate the oxygen down she would become comatose due to CO2 narcosis and hypoxia and probably quickly Extensive conversation with travon information to with nurse at my side in the hallway. Review of Systems Pulmonary: Dyspnea, Cough Focused Exam Lactate Level 10/20/17 13:08: Lactic Acid Level 1.07 10/20/17 21:30: Lactic Acid Level 1.36 Time of Focused Exam: 15:52 Objective Exam Vital Signs Vital Signs Date Time Temp Pulse Resp B/P (MAP) Pulse Ox O2 Delivery O2 Flow Rate FiO2 10/22/17 13:00 105 10/22/17 12:05 97.6 Vapotherm 50.00 30.00 10/22/17 12:05 50 10/22/17 10:28 95 10/22/17 08:33 23 Capillary Refill : Less Than 3 Seconds General Appearance: Chronically ill, Moderate Distress (Due to tachypnea and wheezing), Other (Very decline since yesterday) Respiratory: Crackles, Decreased Breath Sounds, Wheezing Cardiovascular: Tachycardia Neurologic/Psychiatric: Alert, Oriented x3, No Motor/Sensory Deficits, Depressed Affect Results/Procedures Lab Laboratory Tests 10/22/17 03:25 Patient resulted labs reviewed. Assessment/Plan Assessment and Plan Assess & Plan/Chief Complaint Assessment: Terminally ill status will initiate end of life care and move to 4 th floor Plan: Comfort care protocol DNR Patient would quickly if Vapotherm is DC so will have contact her son in [place] but patient may either pass quickly or may become comatose and within 4 days considering many days of aggressive treatment including Abx Diagnosis/Problems Diagnosis/Problems (1) Mass of left lung Status: Acute Assessment & Plan: presumed cancer? (2) Severe sepsis Status: Acute (3) Pneumonia Status: Acute Qualifiers: Pneumonia type: due to unspecified organism Laterality: left Lung location: upper lobe of lung Qualified Codes: J18.1 - Lobar pneumonia, unspecified organism (4) RESPIRATORY FAILURE, UNSP, UNSP W HYPOXIA OR HYPERCAPNIA Status: Acute (5) Poor prognosis Status: Chronic (6) Chronic pain Status: Chronic (7) Debility Status: Chronic (8) Chronic diarrhea Status: Chronic (9) Neuropathy Status: Chronic (10) COPD (chronic obstructive pulmonary disease) Status: Chronic Qualifiers: COPD type: unspecified COPD Qualified Codes: J44.9 - Chronic obstructive pulmonary disease, unspecified (11) Hypoxia Status: Acute Clinical Quality Measures DVT/VTE Risk/Contraindication: Risk Factor Score Per Nursin RFS Level Per Nursing on Admit: 2=Moderate TIMBO RAY DO October 22, 2017 14:27
[2017-10-22] MEDS ORDERED: FUROSEMIDE 40 MG/4 ML INJ (LASIX) ONE (14:28)
[2017-10-22] MEDS ORDERED: FUROSEMIDE 40 MG/4 ML INJ (LASIX) IVP NR (14:33)
[2017-10-22] MEDS ORDERED: KCL 20 MEQ TAB (K-DUR) PO NR (14:34)
[2017-10-22] MEDS ORDERED: TROUGH ORDER-PHARMACY XX NR (15:00)
[2017-10-22] MEDS: VANCOMYCIN 1 GM/NS 250 ML IVPB IV SCH ×2 (16:09)
[2017-10-22] MEDS: morphine (ROXINOL) 10 MG/0.5 ML oral conc 0.5 ML PO PRN (17:18)
[2017-10-22] MEDS: oxyCODONE/APAP 10/325MG (PERCOCET 10) TABLET PO PRN (20:06)
[2017-10-22] MEDS: ENOXAPARIN 40 MG/0.4 ML (LOVENOX) SYR SC SCH (20:46)
[2017-10-23] MEDS: morphine (ROXINOL) 10 MG/0.5 ML oral conc 0.5 ML PO PRN (00:28)
[2017-10-23 00:46] VITALS: BP 112/56
[2017-10-23] MEDS: morphine PCA 30 MG/30 ML VIAL IV PRN ×4 (01:44→20:56)
[2017-10-23] MEDS: RT-ALBUTEROL/IPRATROPIUM 3 ML (DUONEB) VIAL INH SCH ×5 (02:17→23:04)
[2017-10-23] MEDS: POTASSIUM CL 10MEQ/50ML IVPB 50 ML IV SCH (02:38)
[2017-10-23 03:36] VITALS: BP 121/64
[2017-10-23] MEDS: HYDROCORTISONE 100 MG/2 ML (Solu-CORTEF) VIAL IV SCH (05:20)
[2017-10-23] MEDS: NS IV 1000 ML 1,000 ML IV SCH ×2 (07:13→13:28)
[2017-10-23 08:00] VITALS: BP 117/62
[2017-10-23 11:26] VITALS: BP 114/75
--- NOTE | 2017-10-23 12:20 | Progress Note-Hospitalist ---
Subjective HPI/CC On Admission Date Seen by Provider: October 23, 2017 Time Seen by Provider: 10:40 CC: Dyspnea HPI: This is a 72-year-old white female known to me from prior hospital stay and clinic patient at the [facility] with severe COPD from prior 3 pack a day smoker until 6 years ago when she converted to a Syn[employer] and possible left lower lobe lung mass presented to the ER with increased dyspnea and unable to manage at home. I seen her in the clinic last Tuesday had scheduled follow-up again today before she worsened to the point she presented to the ER. Patient was found to be acute on chronic respiratory failure requiring BiPAP and treatment for pneumonia with meropenem and vancomycin. I had discussed with the patient for advanced directives and rn social services at the clinic had met with them they have the paperwork in their hands last week but failed to fill all that out so I did have a long conversation with her and her friend at the bedside about the need to prepare for possible lack of recovery and she dislikes the BiPAP so that will be discontinued and placed on Vapotherm but overall prognosis is extremely poor and she was a hospice candidate weeks ago. I have sent pastoral care up with advanced directive papers and her friend has agreed to talk to her about it more in depth. She was to see pulmonology in the clinic for repeat CT scan to be checked in a matter of 4 more weeks considering the high suspicion of lung cancer and that is consistent with a recurrent type I'm assuming it is postobstructive pneumonia. Subjective/Events-last exam Patient reports that she is doing extremely well but wheezing on exam and overall clinical status and requiring 30 L on Vapotherm says another story area Patient very anxious and talking quickly and clapping her hands stating she is doing great Was to go home on hospice but she is requiring so much oxygen I doubt that is an option because she would probably pass away in transport We'll be creative in order to get her home on hospice as she is requesting but that will not be done until Tuesday after the holiday weekend. Lomotil use for loose stools Started morphine CONSTRUCTION ADMINISTRATIVE ASSISTANT yesterday in the middle of the night at 3:00 AM Review of Systems Pulmonary: Dyspnea Focused Exam Lactate Level 10/20/17 21:30: Lactic Acid Level 1.36 Time of Focused Exam: 15:52 Objective Exam Vital Signs Vital Signs Date Time Temp Pulse Resp B/P (MAP) Pulse Ox O2 Delivery O2 Flow Rate FiO2 10/23/17 11:26 97.6 113 22 114/75 (88) 93 Vapotherm 50.00 30.00 10/23/17 10:50 50 Capillary Refill : Less Than 3 Seconds General Appearance: Chronically ill, Moderate Distress (wheezing, appears more declined today) Respiratory: Crackles, Decreased Breath Sounds, Wheezing Cardiovascular: Tachycardia Neurologic/Psychiatric: Alert, Oriented x3, Other (anxious) Results/Procedures Lab Patient resulted labs reviewed. Assessment/Plan Assessment and Plan Assess & Plan/Chief Complaint Assessment: Terminally ill status will initiate end of life care and move to 4 th floor Plan: Comfort care protocol DNR Patient would quickly if Vapotherm is DC so will have contact her son in [place] but patient may either pass quickly or may become comatose and within 4 days considering many days of aggressive treatment including Abx Diagnosis/Problems Diagnosis/Problems (1) Mass of left lung Status: Acute Assessment & Plan: presumed cancer? (2) Severe sepsis Status: Acute (3) Pneumonia Status: Acute Qualifiers: Pneumonia type: due to unspecified organism Laterality: left Lung location: upper lobe of lung Qualified Codes: J18.1 - Lobar pneumonia, unspecified organism (4) RESPIRATORY FAILURE, UNSP, UNSP W HYPOXIA OR HYPERCAPNIA Status: Acute (5) Poor prognosis Status: Chronic (6) Chronic pain Status: Chronic (7) Debility Status: Chronic (8) Chronic diarrhea Status: Chronic (9) Neuropathy Status: Chronic (10) COPD (chronic obstructive pulmonary disease) Status: Chronic Qualifiers: COPD type: unspecified COPD Qualified Codes: J44.9 - Chronic obstructive pulmonary disease, unspecified (11) Hypoxia Status: Acute Clinical Quality Measures DVT/VTE Risk/Contraindication: Risk Factor Score Per Nursin RFS Level Per Nursing on Admit: 2=Moderate TIMBO RAY DO October 23, 2017 12:20
[2017-10-23] MEDS ORDERED: GLYCOPYRROLATE 0.2 MG/ML (ROBINUL) 2 ML VIAL IV PRN (12:30)
[2017-10-23] MEDS ORDERED: BISACODYL 10 MG SUPP (DULCOLAX) PR PRN (12:30)
[2017-10-23] MEDS ORDERED: RT-ALBUTEROL/IPRATROPIUM 3 ML (DUONEB) VIAL INH PRN (12:30)
[2017-10-23] MEDS ORDERED: SALIVA STIMULANT MOUTH SPRAY (BIOTENE) 1.5 OZ MM PRN (12:30)
[2017-10-23] MEDS ORDERED: ARTIFICAL TEARS 0.4 ML UNIT DOSE (REFRESH PLUS) OU PRN (12:30)
[2017-10-23] MEDS ORDERED: ONDANSETRON 4 MG/2 ML (SDV) Z0FRAN IVP PRN (12:30)
[2017-10-23] MEDS ORDERED: ARTIFICIAL TEARS OINT (LACRI-LUBE) 3.5 GM TUBE OU PRN (12:30)
[2017-10-23] MEDS ORDERED: ACETAMINOPHEN 650 MG SUPP (TYLENOL) PR PRN (12:30)
[2017-10-23] MEDS: oxyCODONE/APAP 10/325MG (PERCOCET 10) TABLET PO PRN ×2 (13:01→18:43)
--- NOTE | 2017-10-23 13:17 | Progress Note-Cardiology ---
Cardiology SOAP Progress Note Subjective: Feels somewhat better compared to yesterday. Less short of breath. No cp or palp or syncope. Has gen malaise and weakness Objective: I&O/Vital Signs 10/23/17 10/23/17 10/23/17 10/23/17 03:36 06:28 07:14 08:00 Temp 98.2 Pulse 111 Resp 17 17 B/P (MAP) 121/64 (83) Pulse Ox 93 93 O2 Delivery Vapotherm Vapotherm Vapotherm O2 Flow Rate 50.00 30.00 30.00 30.00 FiO2 50 50 10/23/17 10/23/17 10/23/17 08:00 10:50 11:26 Temp 96.9 97.6 Pulse 90 113 Resp 24 22 B/P (MAP) 117/62 (80) 114/75 (88) Pulse Ox 92 95 93 O2 Delivery Vapotherm Vapotherm Vapotherm O2 Flow Rate 50.00 30.00 50.00 30.00 30.00 FiO2 50 10/23/17 00:00 Intake Total 250 ml Output Total 4025 ml Balance -3775 ml Weight (Pounds): 148 Weight (Ounces): 7.0 Weight (Calculated Kilograms): [id number] Constitutional: AAO x 3, well-developed, well-nourished, other (appears short of breath) Respiratory: No accessory muscle use, No respiratory distress, No chest tender ; other (diminished bilat air entry, increased exp phase, diminished breath sounds and dullness to percussion at bases; coarse basal crackles) Cardiovascular: regular rate-rhythm, S1 and S2, systolic murmur (soft RAFFY at card base) Gastrointestional: No tender; soft; No guarding, No rebound; audible bowel sounds Extremities: swelling (mild bilat leg swelling); No clubbing, No cyanosis Neurologic/Psychiatric: oriented x 3, grossly intact, power is 5/5 both on sides Skin: normal color, warm/dry; No mottled, No rash on exposed areas, No ulcerations on exposed areas; other (good capillary refill) Results/Procedures: Labs Microbiology 10/20/17 Blood Culture - Preliminary, Resulted No growth 10/20/17 Urine Culture - Final, Complete Laboratory Tests 10/22/17 03:25 A/P: Assessment: Acute on chronic resp failure due to ac exac of COPD due to pneumonia, managed by Dr Gerardo Septicemia due to pneumonia and/or UTI, managed by Dr Gerardo Volume overload vs mild diastolic CHF, as indicated by elevated BNP Sinus tachycardia due to systemic illness and sepsis UTI COPD Anemia of undetermined etiology, worsening, managed by Dr Geradro She denies any h/o CHF or [place] Echo of 07/21/15: Normal global left ventricular systolic function with an ejection fraction of approximately 60%; Mild mitral annular calcification and aortic valve sclerosis without evidence of any significant valvular stenosis; Pulmonary artery systolic pressure is estimated to be approximately 30mmHg. Quit tobacco use in 2011 Plan: * Monitor labs * Clinical status does not seem to have improved significantly since I saw are last yesterday * Prognosis guarded NAGA ADAIR MD FACP FAC CCDS October 23, 2017 13:17
[2017-10-23 14:46] VITALS: BP 114/75
[2017-10-23] MEDS: ENOXAPARIN 40 MG/0.4 ML (LOVENOX) SYR SC SCH (21:46)
[2017-10-24] MEDS: RT-ALBUTEROL/IPRATROPIUM 3 ML (DUONEB) VIAL INH SCH ×6 (02:32→22:02)
[2017-10-24] MEDS: oxyCODONE/APAP 10/325MG (PERCOCET 10) TABLET PO PRN (02:57)
[2017-10-24] MEDS: LORazepam INJ 2 MG/ML (ATIVAN) VIAL IVP PRN ×3 (02:57→17:32)
[2017-10-24] MEDS: morphine PCA 30 MG/30 ML VIAL IV PRN ×2 (04:22→14:42)
--- NOTE | 2017-10-24 11:57 | Progress Note-Hospitalist ---
Subjective HPI/CC On Admission Date Seen by Provider: October 24, 2017 Time Seen by Provider: 10:30 CC: Dyspnea HPI: This is a 72-year-old white female known to me from prior hospital stay and clinic patient at the [facility] with severe COPD from prior 3 pack a day smoker until 6 years ago when she converted to a Mandaen and possible left lower lobe lung mass presented to the ER with increased dyspnea and unable to manage at home. I seen her in the clinic last Tuesday had scheduled follow-up again today before she worsened to the point she presented to the ER. Patient was found to be acute on chronic respiratory failure requiring BiPAP and treatment for pneumonia with meropenem and vancomycin. I had discussed with the patient for advanced directives and social studies teacher at the clinic had met with them they have the paperwork in their hands last week but failed to fill all that out so I did have a long conversation with her and her friend at the bedside about the need to prepare for possible lack of recovery and she dislikes the BiPAP so that will be discontinued and placed on Vapotherm but overall prognosis is extremely poor and she was a hospice candidate weeks ago. I have sent pastoral care up with advanced directive papers and her friend has agreed to talk to her about it more in depth. She was to see pulmonology in the clinic for repeat CT scan to be checked in a matter of 4 more weeks considering the high suspicion of lung cancer and that is consistent with a recurrent type I'm assuming it is postobstructive pneumonia. 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 Assessment/Plan Assessment and Plan Assess & Plan/Chief Complaint Assessment: Terminally ill status will initiate end of life care and move to 4 th floor Plan: Comfort care protocol DNR Patient would quickly if Vapotherm is DC so need SW to help arrange DC to home on Hospice tomorrow Diagnosis/Problems Diagnosis/Problems (1) Mass of left lung Status: Acute Assessment & Plan: presumed cancer? (2) Severe sepsis Status: Acute (3) Pneumonia Status: Acute Qualifiers: Pneumonia type: due to unspecified organism Laterality: left Lung location: upper lobe of lung Qualified Codes: J18.1 - Lobar pneumonia, unspecified organism (4) RESPIRATORY FAILURE, UNSP, UNSP W HYPOXIA OR HYPERCAPNIA Status: Acute (5) Poor prognosis Status: Chronic (6) Chronic pain Status: Chronic (7) Debility Status: Chronic (8) Chronic diarrhea Status: Chronic (9) Neuropathy Status: Chronic (10) COPD (chronic obstructive pulmonary disease) Status: Chronic Qualifiers: COPD type: unspecified COPD Qualified Codes: J44.9 - Chronic obstructive pulmonary disease, unspecified (11) Hypoxia Status: Acute Clinical Quality Measures DVT/VTE Risk/Contraindication: Risk Factor Score Per Nursin RFS Level Per Nursing on Admit: 2=Moderate TIMBO RAY DO October 24, 2017 11:57
[2017-10-24] MEDS: NS IV 1000 ML 1,000 ML IV SCH (13:50)
[2017-10-24] MEDS: ENOXAPARIN 40 MG/0.4 ML (LOVENOX) SYR SC SCH (21:20)
[2017-10-25] MEDS: LORazepam INJ 2 MG/ML (ATIVAN) VIAL IVP PRN ×3 (01:14→11:49)
[2017-10-25] MEDS: RT-ALBUTEROL/IPRATROPIUM 3 ML (DUONEB) VIAL INH SCH ×4 (02:16→14:18)
[2017-10-25] MEDS: morphine PCA 30 MG/30 ML VIAL IV PRN ×2 (05:03→14:04)
[2017-10-25] MEDS: HALOPERIDOL 5 MG/ML (HALDOL) AMP IV PRN (09:10)
[2017-10-25] MEDS ORDERED: MORP100S3 PO (10:03)
[2017-10-25] MEDS ORDERED: LORA2ORA PO (10:03)
--- NOTE | 2017-10-25 10:09 | Discharge Summary-Hospitalist ---
Diagnosis/Chief Complaint Date of Admission October 20, 2017 at 3:05 pm Date of Discharge Discharge Date: October 25, 2017 Admission Diagnosis Assessment: Acute on chronic respiratory failure Recurrent left lower lobe pneumonia presumed postobstructive due to left lower lobe lung mass and a prior smoker of 3 packs a day. 6 years ago Chronic pain Anxiety Plan: DC BiPAP at her request Needs DO NOT RESUSCITATE Hospice candidate Supportive care but nothing more can be done to modify the lack of progress Discharge Diagnosis (1) Mass of left lung Status: Acute Assessment & Plan: presumed cancer? (2) Severe sepsis Status: Acute (3) Pneumonia Status: Acute (4) RESPIRATORY FAILURE, UNSP, UNSP W HYPOXIA OR HYPERCAPNIA Status: Acute (5) Poor prognosis Status: Chronic (6) Chronic pain Status: Chronic (7) Debility Status: Chronic (8) Chronic diarrhea Status: Chronic (9) Neuropathy Status: Chronic (10) COPD (chronic obstructive pulmonary disease) Status: Chronic (11) Hypoxia Status: Acute Discharge Summary Procedures/Consulations Dr Ramsey- Cards Dr Clyde Peña Discharge Physical Exam Allergies: Coded Allergies: Penicillins (Verified Allergy, Unknown, 10/04/17) Vitals & I&Os Vital Signs Date Time Temp Pulse Resp B/P (MAP) Pulse Ox O2 Delivery O2 Flow Rate FiO2 10/25/17 10:46 93 OxyMask 10.00 10/25/17 06:44 45 10/25/17 05:54 20 10/23/17 14:46 113 10/23/17 11:26 97.6 114/75 (88) General Appearance: Alert, Mild Distress Cardiovascular: Regular Rate Abdominal: Normal Bowel Sounds Psych/Mental Status: Other (anxious) Hospital Course Pt was admitted for pneumonia and COPD and was deemed to be at the end of life due to end stage pneumonia. She required very high levels of oxygen and was unable to be weaned down to her baseline 8lpm. She and family met with [facility] and elected to DC home with comfort measures as she had always requested not to in a hospital. She was transitioned to oxy-mask and was DC home with nonemergent EMS to assume care with [facility]. Comort medications were written to be available on arrival home. Labs (last 24 hrs) Microbiology 10/20/17 Blood Culture - Preliminary, Resulted No growth 5/24/18 Urine Culture - Final, Complete Patient resulted labs reviewed. Discussion & Recommendations Discharge Planning: >30 minutes discharge planning Discharge Home Medications: Active Scripts Active Lorazepam Intensol (Lorazepam) 2 Mg/1 Ml Oral.conc 2 Mg PO Q2H PRN Morphine Sulfate Concentrate 20mg/ml (Morphine Sulfate) 100 Mg/5 Ml Solution 5 Mg PO Q4H PRN Reported Promethazine Tablet (Promethazine HCl) 25 Mg Tablet 25 Mg PO Q4H PRN Percocet 5-325 mg Tablet (Oxycodone HCl/Acetaminophen) 1 Each Tablet 1 Tab PO BID PRN Xanax (Alprazolam) 0.25 Mg Tablet 0.25 Mg PO Q8H PRN Lomotil 2.5-0.025 mg Tablet (Diphenoxylate HCl/Atropine) 1 Each Tablet 2 Tab PO Q6H PRN Iprat-Albut 0.5-3(2.5) mg/3 ml (Ipratropium/Albuterol Sulfate) 3 Ml Ampul.neb 3 Ml NEB Q2H PRN Budesonide 0.5 Mg/2 Ml Ampul.neb 0.5 Mg NEB BID Zofran Odt (Ondansetron) 8 Mg Tab.rapdis 8 Mg SL Q8H PRN Tylenol with Codeine #4 Tablet (Acetaminophen with Codeine) 1 Each Tablet 1-2 Tab PO Q6H PRN Prednisone 5 Mg Tablet 5 Mg PO DAILY Pantoprazole Sodium 40 Mg Tablet.dr 40 Mg PO DAILY Probiotic (L.acidoph & Paracasei,B.lactis) 1 Each Capsule 1 Cap PO DAILY Biotin 5,000 Mcg Tab.rapdis 5,000 Mcg PO DAILY Spironolactone 50 Mg Tablet 50 Mg PO DAILY LAST FILLED #30 4-1-18 Gabapentin 300 Mg Capsule 900 Mg PO TID TAKES 3 (300MG) CAPSULES Temazepam 30 Mg Capsule 30 Mg PO HS Instructions to patient/family Please see electronic discharge instructions given to patient. Clinical Quality Measures DVT/VTE Risk/Contraindication: Risk Factor Score Per Nursin RFS Level Per Nursing on Admit: 2=Moderate Comfort Measures/ Type of Care: Comfort Measures, Hospice Care (Home) Copy Copies To 1: TIMBO RAY DO Problem Qualifiers (1) Pneumonia: Pneumonia type: due to unspecified organism Laterality: left Lung location: upper lobe of lung Qualified Codes: J18.1 - Lobar pneumonia, unspecified organism (2) COPD (chronic obstructive pulmonary disease): COPD type: unspecified COPD Qualified Codes: J44.9 - Chronic obstructive pulmonary disease, unspecified MADELINE MENDEZ MD October 25, 2017 10:09 am
[2017-10-25] MEDS: oxyCODONE/APAP 10/325MG (PERCOCET 10) TABLET PO PRN (11:50)
[2017-10-25 15:05] VITALS: BP 114/75
== END 2017-10-25 15:05 | disposition hospice, home (50) | DRG 871 ==
LOC: EDUNIT# 12:56 → ER 12:58 → ICU 15:05 → 4TH 10-22 18:07
PROVIDERS: ADMIT Internal Medicine; ATTEND Internal Medicine
PROC: 02HV33Z Insertion of Infusion Device into Superior Vena Cava, Percutaneous Approach (ICD-10-PCS; principal; 2017-10-20)
DX: A41.9 Sepsis, unspecified organism (principal); J18.9 Pneumonia, unspecified organism; J96.20 Acute and chronic respiratory failure, unspecified whether with hypoxia or hypercapnia; J44.0 Chronic obstructive pulmonary disease with (acute) lower respiratory infection; J44.1 Chronic obstructive pulmonary disease with (acute) exacerbation; G93.41 Metabolic encephalopathy; N39.0 Urinary tract infection, site not specified; Z66 Do not resuscitate; Z51.5 Encounter for palliative care; R91.8 Other nonspecific abnormal finding of lung field; D64.9 Anemia, unspecified; G89.29 Other chronic pain; K52.9 Noninfective gastroenteritis and colitis, unspecified; F41.9 Anxiety disorder, unspecified; G62.9 Polyneuropathy, unspecified; Z87.891 Personal history of nicotine dependence
CPT/HCPCS: 36415; 36600; 70450; 71045; 80053; 81000; 82805; 82947; 83605; 83735; 83880; 84100; 85007; 85025; 85027; 85610; 85730; 87040; 87088; 94640; 94660; 94760; 96361; 96374